=== PATIENT | female | born 1950 | race Caucasian/White ===

== ENCOUNTER → 2017-05-03 | Outpatient (CLI) | payer MEDICARE ==
--- NOTE | 2017-05-04 06:57 | MM ---
Reason for exam: clinical finding. Last mammogram was performed 9 months ago. History: Patient is postmenopausal. Indicated problem(s): pain in the left breast. Physical Findings: Nurse did not find any significant physical abnormalities on exam. MG 3D Diag Mammo W/Cad LT CC and MLO view(s) were taken of the left breast. Prior study comparison: August 11, 2016, bilateral MG screening mammo w CAD. January 14, 2015, mammogram, performed at [facility]. November 16, 2013, mammogram, performed at [facility]. The breast tissue is heterogeneously dense. This may lower the sensitivity of mammography. Finding: There are typically benign round calcifications in the left breast. There is no discrete abnormality. These results were verbally communicated with the patient and result sheet given to the patient on 05/03/17. ASSESSMENT: Benign, BI-RAD 2 RECOMMENDATION: Return to routine screening mammogram schedule for both breasts. Back on schedule. Manage on a clinical basis with regard to pain.
== END | disposition home or self-care (01) ==
LOC: RADMAMWWP 14:21
PROVIDERS: ATTEND Family Medicine
DX: N64.4 Mastodynia (principal)
CPT/HCPCS: G0206; G0279

== ENCOUNTER → 2017-09-29 | Outpatient (CLI) | payer MEDICARE ==
--- NOTE | 2017-09-30 11:23 | MM ---
Reason for exam: screening (asymptomatic). Last mammogram was performed 5 months ago. History: Patient is postmenopausal. Physical Findings: A clinical breast exam by your physician is recommended on an annual basis and results should be correlated with mammographic findings. MG 3D Screening Mammo W/Cad Bilateral CC and MLO view(s) were taken. Prior study comparison: May 03, 2017, left breast MG 3d diag mammo w/cad LT. August 11, 2016, bilateral MG screening mammo w CAD. The breast tissue is heterogeneously dense. This may lower the sensitivity of mammography. There is no discrete abnormality. No significant changes when compared with prior studies. ASSESSMENT: Negative, BI-RAD 1 RECOMMENDATION: Routine screening mammogram of both breasts in 1 year.
== END | disposition home or self-care (01) ==
LOC: RADMAMWWP 14:34
PROVIDERS: ATTEND Family Medicine
DX: Z12.31 Encounter for screening mammogram for malignant neoplasm of breast (principal)
CPT/HCPCS: 77063; 77067

== ENCOUNTER → 2017-11-28 | Outpatient (CLI) | payer MEDICARE ==
[2017-11-28 17:39] LABS: Ionized Calcium 5.3 mg/dL (4.5-5.3)
[2017-11-28 17:50] LABS: ALT 35 U/L (9-52); AST 27 U/L (14-36); Alkaline Phosphatase 77 U/L (38-126); Anion Gap 9 mmol/L; Blood Urea Nitrogen 17 mg/dL (7-17); Calcium 9.7 mg/dL (8.4-10.2); Carbon Dioxide 30 mmol/L (22-30); Chloride 105 mmol/L (98-107); Glucose 121 mg/dL (74-99); Potassium 4.5 mmol/L (3.5-5.1); Sodium 144 mmol/L (137-145); Total Bilirubin 0.3 mg/dL (0.2-1.3)
== END | disposition home or self-care (01) ==
LOC: LABWHC1 17:03
PROVIDERS: ATTEND Physical Medicine & Rehabilitation
DX: M51.17 Intervertebral disc disorders with radiculopathy, lumbosacral region (principal); M47.27 Other spondylosis with radiculopathy, lumbosacral region; M41.26 Other idiopathic scoliosis, lumbar region
CPT/HCPCS: 36415; 80053; 82330; 83735; 84443

== ENCOUNTER 2017-11-30 11:21 | Day surgery (SDC) | payer MEDICARE ==
[2017-11-29 09:22] VITALS: BMI 27.3
[2017-11-30] MEDS: LACTATED RINGERS 1,000 ML IV SCH ×2 (12:05→12:31)
[2017-11-30] MEDS ORDERED: LIDOCAINE 1% 20 ML VIAL (10MG/ML) FOR IV START INTRADERMA ONE (12:05)
[2017-11-30 12:07] VITALS: RESP 16; TEMP 97.8
[2017-11-30] MEDS ORDERED: LIDOCAINE 1% INJ 10MG/ML (20 ML MDV) ONE (12:32)
[2017-11-30] MEDS ORDERED: PROPOFOL 10 MG/ML 20 ML VIAL IV ONE (12:32)
--- NOTE | 2017-11-30 12:41 | P.PCN ---
Date of Procedure: 11/30/17 Procedure(s) Performed: BRIEF HISTORY: Patient is a 67-year-old, pleasant, male, scheduled for an upper endoscopy as a part of evaluation of worsening history of GERD of 15 years duration. She was on Nexium 40 mg daily for several years and recently her symptoms have been progressively getting worse, hence the medication was changed to Protonix 40 mg twice daily despite which she remains symptomatic and hence she is scheduled for an upper endoscopy to evaluate further. PROCEDURE PERFORMED: Esophagogastroduodenoscopy with biopsy. PREOPERATIVE DIAGNOSIS: Long-standing history of GERD with worsening symptoms. IV sedation per anesthesia. PROCEDURE: After informed consent was obtained, the patient was brought into the endoscopy unit. IV sedation was administered by Anesthesia under continuous monitoring. Initially the Olympus GIF-140 video endoscope was inserted into the mouth. Esophagus intubated without any difficulty. It was gradually advanced into the stomach and duodenum and carefully examined. The bulb and the second part of the duodenum appeared normal. The scope at this time was withdrawn to the stomach, adequately insufflated with air, and upon careful examination, mucosa of the antrum had mild gastritis and biopsies were done from this area. The, body, cardia and the fundus appeared normal. The scope was then withdrawn into the esophagus. The GE junction was located at 39 cm from the incisors. Small sliding Hiatal hernia noted. The esophagus appeared normal. There were no erosions or ulcerations seen and the patient tolerated the procedure well. IMPRESSION: 1. Mild antral gastritis. 2. Small hiatal hernia but no evidence of esophagitis or esophageal stricture. RECOMMENDATIONS: The findings of this examination were discussed with the patient as well as a family. She was advised to follow with the biopsy results. She will continue with Protonix 40 mg twice daily and will add Carafate 1 g 4 times daily. She'll be seen in office in 6 weeks..
[2017-11-30 13:02] VITALS: BP 150/87; PULSE 69
== END 2017-11-30 13:25 | disposition home or self-care (01) ==
LOC: ORWHC2ENDO 11:21
PROVIDERS: ATTEND Internal Medicine Gastroenterology
DX: K31.7 Polyp of stomach and duodenum (principal); K29.50 Unspecified chronic gastritis without bleeding; K44.9 Diaphragmatic hernia without obstruction or gangrene; K21.0 Gastro-esophageal reflux disease with esophagitis; E07.9 Disorder of thyroid, unspecified; Z79.891 Long term (current) use of opiate analgesic; Z79.899 Other long term (current) drug therapy; Z88.0 Allergy status to penicillin
CPT/HCPCS: 88305; 43239; J2001; J2704

== ENCOUNTER 2017-12-22 11:57 | Observation (INO) | payer MEDICARE, OTHER ==
[2017-12-22] MEDS ORDERED: ASPIRIN 81 MG PO STA (12:51)
[2017-12-22] MEDS ORDERED: NITROGLYCERIN OINT 1 INCH/GM PACKET TOPICAL STA (12:51)
[2017-12-22 13:11] LABS: Basophils % (A) 0 %; Eosinophils # (A) 0.1 k/uL (0-0.7); Eosinophils % (A) 1 %; HCT 40.6 % (34.0-46.0); HGB 13.5 gm/dL (11.4-16.0); Lymphocytes # (A) 1.9 k/uL (1.0-4.8); Lymphocytes % (A) 20 %; MCH 28.2 pg (25.0-35.0); MCHC 33.2 g/dL (31.0-37.0); Mean Platelet Volume 7.5; Monocytes # (A) 0.6 k/uL (0-1.0); Monocytes % (A) 6 %; Neutrophils # (A) 6.9 k/uL (1.3-7.7); Neutrophils % (A) 72 %; Platelet Count 253 k/uL (150-450); RBC 4.78 m/uL (3.80-5.40); WBC 9.7 k/uL (3.8-10.6)
[2017-12-22 13:19] LABS: ALT 31 U/L (9-52); AST 24 U/L (14-36); Albumin 4.6 g/dL (3.5-5.0); Alkaline Phosphatase 88 U/L (38-126); Anion Gap 14 mmol/L; Blood Urea Nitrogen 22 mg/dL (7-17); Calcium 10.2 mg/dL (8.4-10.2); Carbon Dioxide 25 mmol/L (22-30); Chloride 105 mmol/L (98-107); Glucose 112 mg/dL (74-99); Partial Thromboplastin Time 22.3 sec (22.0-30.0); Potassium 4.4 mmol/L (3.5-5.1); Prothrombin Time 9.7 sec (9.0-12.0); Sodium 144 mmol/L (137-145); Total Bilirubin 0.3 mg/dL (0.2-1.3); Total Protein 7.8 g/dL (6.3-8.2)
--- NOTE | 2017-12-22 13:26 | XR ---
EXAMINATION TYPE: XR chest 2V DATE OF EXAM: 12/22/2017 COMPARISON: NONE HISTORY: Chest pain per order. Pain numbness and swelling into left arm. TECHNIQUE: Frontal and lateral views of the chest are obtained. FINDINGS: There is new left basilar linear atelectasis. Right lung is clear. No pleural effusion or pneumothorax is seen bilaterally. The cardiac silhouette size is within normal limits. There is mult ilevel spurring in the thoracic spine noted. IMPRESSION: Left basilar linear atelectasis.
--- NOTE | 2017-12-22 13:41 | ED ---
Extremity Problem HPI - General Chief complaint: Extremity Problem,Nontraumatic Stated complaint: Left arm pain/ numbness Time Seen by Provider: 12/22/17 12:34 Source: patient, RN notes reviewed Mode of arrival: ambulatory Limitations: no limitations - History of Present Illness Initial comments: This is a 67-year-old female who presents to the emergency department with chief complaint of left arm pain and numbness. Patient states that she woke this morning at approximately 8 AM and began experiencing left arm throbbing and achiness. She states that the pain has progressively worsened throughout the day and she is now experiencing numbness and tingling in her left hand. She denies chest pain or shortness of breath. She denies any history of cardiac problems. She states that on Tuesday she received bilateral SI joint joint injections under anesthesia. She states that she developed an epidural headache yesterday and is now experiencing some left leg numbness and tingling as well. Denies any injuries or trauma. Denies neck pain. Denies fevers or chills, abdominal pain, nausea or vomiting, dysuria or hematuria, dizziness or headache. - Related Data Home Medications Medication Instructions Recorded Confirmed Ezetimibe [Zetia] 10 mg PO DAILY 01/28/15 12/22/17 Levothyroxine Sodium [Synthroid] 88 mcg PO DAILY 01/28/15 12/22/17 Multivitamins, Thera [Multivitamin] 1 tab PO DAILY 01/28/15 12/22/17 Naproxen [Naprosyn] 250 mg PO HS 01/28/15 12/22/17 Oxybutynin Chloride [Ditropan] 5 mg PO BID 01/28/15 12/22/17 traMADol HCl [Ultram] 50 mg PO BID 01/28/15 12/22/17 Allergies Allergy/AdvReac Type Severity Reaction Status Date / Time Penicillins Allergy Rash/Hives Verified 12/22/17 12:36 Review of Systems ROS Statement: Those systems with pertinent positive or pertinent negative responses have been documented in the HPI. ROS Other: All systems not noted in ROS Statement are negative. Past Medical History Past Medical History: Fibromyalgia, GERD/Reflux, Thyroid Disorder Additional Past Medical History / Comment(s): cricopharyngeal achalasia, arthritis, IBS, hernia, DJD History of Any Multi-Drug Resistant Organisms: None Reported Past Surgical History: Appendectomy, Hysterectomy Additional Past Surgical History / Comment(s): carpel tunnel, Past Psychological History: No Psychological Hx Reported Smoking Status: Never smoker Past Alcohol Use History: None Reported Past Drug Use History: None Reported General Exam - General Exam Comments Initial Comments: General: Awake and alert, well-developed; in no apparent distress. HEENT: Head atraumatic, normocephalic. Pupils are equal, round and reactive to light. Extraocular movements intact. Oropharynx moist without erythema or exudate. Neck: Supple. Normal ROM. Cardiovascular: Regular rate and rhythm. No murmurs, rubs or gallops. Chest symmetrical. Respiratory: Lungs clear to auscultation bilaterally. No wheezes, rales or rhonchi. Normal respiratory effort with no use of accessory muscles. Musculoskeletal: Normal range of motion and no tenderness on palpation of the left arm. Radial pulses are 2+ equal and palpable bilaterally. Cap refill is less than 2 seconds. No ecchymosis, swelling or erythema noted. Skin: [place], warm and dry without rashes or lesions. Neurological: Alert and oriented x3. CN II-XII grossly intact. Speech is fluent and answers are appropriate. No focal neuro deficits. Psychiatric: Normal mood and affect. No overt signs of depression or anxiety noted. Limitations: no limitations Course Vital Signs 12/22/17 12/22/17 12:02 13:52 Temperature 98.5 F 97.8 F Pulse Rate 87 67 Respiratory 18 18 Rate Blood Pressure 163/88 152/86 O2 Sat by Pulse 98 97 Oximetry Medical Decision Making - Medical Decision Making This is a 67-year-old female who presents to the emergency department with chief complaint of left arm pain and numbness. She denies any shortness of breath or chest pain. She describes the arm pain as throbbing and achy with numbness and tingling in her left hand. A full cardiac workup was performed. EKG revealed normal sinus rhythm. CBC and CMP were unremarkable. Troponin and cardiac profile were negative. Chest x-ray revealed left basilar linear atelectasis. Vital signs are stable and she is in no acute distress. This case was discussed with attending physician, Dr. Briscoe who also evaluated the patient. Patient will be admitted under Dr. Graham with diagnosis of ACS and unstable angina. Cardiology will be consulted. Patient was made aware of findings and plan and is in agreement for admission. - Lab Data Result diagrams: 12/22/17 13:01 12/22/17 13:01 Lab Results 12/22/17 12/22/17 12/22/17 Range/Units 13:01 13:01 13:01 WBC 9.7 (3.8-10.6) k/uL RBC 4.78 (3.80-5.40) m/uL Hgb 13.5 (11.4-16.0) gm/dL Hct 40.6 (34.0-46.0) % MCV 85.0 (80.0-100.0) fL MCH 28.2 (25.0-35.0) pg MCHC 33.2 (31.0-37.0) g/dL RDW 14.0 (11.5-15.5) % Plt Count 253 (150-450) k/uL Neutrophils % 72 % Lymphocytes % 20 % Monocytes % 6 % Eosinophils % 1 % Basophils % 0 % Neutrophils # 6.9 (1.3-7.7) k/uL Lymphocytes # 1.9 (1.0-4.8) k/uL Monocytes # 0.6 (0-1.0) k/uL Eosinophils # 0.1 (0-0.7) k/uL Basophils # 0.0 (0-0.2) k/uL PT (9.0-12.0) sec INR (<1.2) APTT (22.0-30.0) sec Sodium 144 (137-145) mmol/L Potassium 4.4 (3.5-5.1) mmol/L Chloride 105 (98-107) mmol/L Carbon Dioxide 25 (22-30) mmol/L Anion Gap 14 mmol/L BUN 22 H (7-17) mg/dL Creatinine 0.60 (0.52-1.04) mg/dL Est GFR (CKD-EPI)AfAm >90 (>60 ml/min/1.73 sqM) Est GFR (CKD-EPI)NonAf >90 (>60 ml/min/1.73 sqM) Glucose 112 H (74-99) mg/dL Calcium 10.2 (8.4-10.2) mg/dL Magnesium 2.0 (1.6-2.3) mg/dL Total Bilirubin 0.3 (0.2-1.3) mg/dL AST 24 (14-36) U/L ALT 31 (9-52) U/L Alkaline Phosphatase 88 (38-126) U/L Total Creatine Kinase 52 (30-135) U/L CK-MB (CK-2) 0.3 (0.0-2.4) ng/mL CK-MB (CK-2) Rel Index 0.6 Troponin I <0.012 (0.000-0.034) ng/mL Total Protein 7.8 (6.3-8.2) g/dL Albumin 4.6 (3.5-5.0) g/dL 12/22/17 Range/Units 13:01 WBC (3.8-10.6) k/uL RBC (3.80-5.40) m/uL Hgb (11.4-16.0) gm/dL Hct (34.0-46.0) % MCV (80.0-100.0) fL MCH (25.0-35.0) pg MCHC (31.0-37.0) g/dL RDW (11.5-15.5) % Plt Count (150-450) k/uL Neutrophils % % Lymphocytes % % Monocytes % % Eosinophils % % Basophils % % Neutrophils # (1.3-7.7) k/uL Lymphocytes # (1.0-4.8) k/uL Monocytes # (0-1.0) k/uL Eosinophils # (0-0.7) k/uL Basophils # (0-0.2) k/uL PT 9.7 (9.0-12.0) sec INR 1.0 (<1.2) APTT 22.3 (22.0-30.0) sec Sodium (137-145) mmol/L Potassium (3.5-5.1) mmol/L Chloride (98-107) mmol/L Carbon Dioxide (22-30) mmol/L Anion Gap mmol/L BUN (7-17) mg/dL Creatinine (0.52-1.04) mg/dL Est GFR (CKD-EPI)AfAm (>60 ml/min/1.73 sqM) Est GFR (CKD-EPI)NonAf (>60 ml/min/1.73 sqM) Glucose (74-99) mg/dL Calcium (8.4-10.2) mg/dL Magnesium (1.6-2.3) mg/dL Total Bilirubin (0.2-1.3) mg/dL AST (14-36) U/L ALT (9-52) U/L Alkaline Phosphatase (38-126) U/L Total Creatine Kinase (30-135) U/L CK-MB (CK-2) (0.0-2.4) ng/mL CK-MB (CK-2) Rel Index Troponin I (0.000-0.034) ng/mL Total Protein (6.3-8.2) g/dL Albumin (3.5-5.0) g/dL 12:14:20 Normal sinus rhythm with possible left atrial enlargement. Ventricular rate 69 bpm, MI interval 144, QRS duration 90, QT/QTC 362/387. No ST segment elevation or depression. - Radiology Data Radiology results: report reviewed Chest x-ray findings: There is no left basilar linear atelectasis. Right lung is clear. No pleural effusion or pneumothorax is seen bilaterally. The cardiac silhouette size is within normal limits. There is multilevel Spring the thoracic spine noted. Impression: Left basilar linear atelectasis. Disposition Clinical Impression: Unstable angina Disposition: ADMITTED IP TO THIS HOSP Condition: Stable Referrals: Preet Graham MD [Primary Care Provider] - 1-2 days Time of Disposition: 15:38
[2017-12-22 13:47] LABS: Creatine Kinase 52 U/L (30-135)
[2017-12-22 13:59] LABS: Creatine Kinase MB 0.3 ng/mL (0.0-2.4); Troponin I <0.012 ng/mL (0.000-0.034)
[2017-12-22] MEDS ORDERED: traMADol 50 MG TAB PO STA (15:38)
[2017-12-22] MEDS ORDERED: NITROGLYCERIN OINT 1 INCH/GM PACKET TOPICAL SCH (18:00)
[2017-12-22 20:11] LABS: Creatine Kinase 39 U/L (30-135)
[2017-12-22 20:23] LABS: Creatine Kinase MB <0.2 ng/mL (0.0-2.4); Troponin I <0.012 ng/mL (0.000-0.034)
[2017-12-22] MEDS ORDERED: ZOLPIDEM 5 MG TAB PO PRN (20:48)
[2017-12-22] MEDS ORDERED: METOPROLOL TARTRATE 12.5 MG TAB PO SCH (21:00)
[2017-12-22] MEDS: traMADol 50 MG TAB PO SCH (21:06)
--- NOTE | 2017-12-22 21:44 | CONS ---
CONSULTATION This is a 67-year-old lady who has multiple medical problems in the form of hypothyroidism, history of hyperlipidemia, who does not like statins and takes only Zetia. She has also underlying history of fibromyalgia. This lady came into the hospital with what seems to be a numbness and discomfort in the left arm. She just felt uncomfortable. She woke up with some left arm numbness. Her sensation is completely preserved. Her pulses are excellent. She then felt some throbbing sensation and achiness. She never had chest pain. There was no evidence of any neck discomfort. About 3 days ago she had some epidural injections and had some headache after that. She has underlying fibromyalgia and has aches and pains most of the time, but has no chest pain. At the time of my evaluation she is resting comfortably, appears a bit anxious but is not in any distress. Her symptom of left arm numbness is also improving. PAST MEDICAL HISTORY: 1. Fibromyalgia. 2. Hyperlipidemia, on Zetia. 3. Hypothyroidism. 4. Arthritis. 5. Back pains, status post epidural injections 2 days ago. She is status post appendectomy and hysterectomy. PHYSICAL EXAMINATION: Blood pressure is 140/80. Pulse rate is 70 per minute, regular. HEENT: Unremarkable. Fundus was not examined by me. NECK: Supple. There is no JVD. I do not hear a carotid bruit. There is no thyromegaly. Heart exam reveals S1, S2 heard normally without a rub, murmur or gallop. Lungs are clear. ABDOMEN: Soft, nontender. Lower extremities reveal normal pulses. No edema. Central nervous system is normal. EKG revealed a sinus mechanism without any acute changes. There is some left atrial abnormality noted. LABORATORY DATA: Her 2 sets of troponins are normal. IMPRESSION: 1. Atypical left arm pain, musculoskeletal in nature. There is no neurological deficit. There is no sensory deficit. Pulses are excellent in the left arm. 2. Fibromyalgia. 3. History of hyperlipidemia. 4. History of some anxiety disorder. RECOMMENDATIONS: I am recommending that we place her on a small dose of beta jovanni. She already has an echocardiogram ordered for tomorrow. I am recommending that we discontinue nitro paste, increase activity, and she can be discharged tomorrow and further investigation in the form of a stress test can be arranged as an outpatient. I discussed my thoughts in detail with the patient. Thank you very much for the consult. MMODL / IJN: [id number] /
[2017-12-23 01:43] LABS: Creatine Kinase 29 U/L (30-135)
[2017-12-23 01:56] LABS: Creatine Kinase MB <0.2 ng/mL (0.0-2.4); Troponin I <0.012 ng/mL (0.000-0.034)
[2017-12-23 02:29] LABS: Cholesterol 164 mg/dL (<200); HDL Cholesterol 43 mg/dL (40-60); LDL Cholesterol,Calculated 82 mg/dL (0-99); Triglycerides 195 mg/dL (<150)
[2017-12-23] MEDS ORDERED: LEVOTHYROXINE 88 MCG TAB PO SCH (06:30)
[2017-12-23] MEDS: traMADol 50 MG TAB PO SCH (08:21)
[2017-12-23 08:28] VITALS: RESP 16
[2017-12-23] MEDS ORDERED: OXYBUTYNIN CHLORIDE 5 MG TAB PO SCH (09:00)
[2017-12-23] MEDS ORDERED: ASPIRIN 325 MG TAB PO SCH (09:00)
[2017-12-23] MEDS ORDERED: METOPROLOL TARTRATE 25 MG TAB PO SCH (09:00)
[2017-12-23] MEDS ORDERED: ASPIRIN 81 MG PO SCH (09:00)
[2017-12-23] MEDS ORDERED: EZETIMIBE 10 MG TAB PO SCH (09:00)
--- NOTE | 2017-12-23 11:49 | ECHOF ---
Referral Reason:unstable angina MEASUREMENTS -------- HEIGHT: 165.1 cm WEIGHT: 74.4 kg BP: 145/68 RVIDd: 2.6 cm (< 3.3) IVSd: 0.9 cm (0.6 - 1.1) LVIDd: 4.4 cm (3.9 - 5.3) LVPWd: 0.9 cm (0.6 - 1.1) IVSs: 1.5 cm LVIDs: 2.9 cm LVPWs: 1.3 cm LA Diam: 2.9 cm (2.7 - 3.8) LAESV Index (A-L): 21.26 ml/m Ao Diam: 2.9 cm (2.0 - 3.7) AV Cusp: 2.0 cm (1.5 - 2.6) MV EXCURSION: 13.254 mm (> 18.000) MV EF SLOPE: 77 mm/s (70 - 150) EPSS: 0.5 cm MV E Chas: 0.72 m/s MV DecT: 236 ms MV A Chas: 0.97 m/s MV E/A Ratio: 0.74 FINDINGS -------- Sinus rhythm. This was a technically good study. The left ventricular size is normal. Left ventricular wall thickness is normal. Overall left vent ricular systolic function is normal with, an EF between 55 - 60 %. The right ventricle is normal in size. Normal LA size by volume 22+/-6 ml/m2. The right atrium is normal in size. The aortic valve is trileaflet and appears structurally normal. The mitral valve leaflets are mildly thickened. Mild mitral annular calcification present. There is trace to mild mitral regurgitation. The tricuspid valve appears structurally normal. Trace/mild (physiologic) pulmonic regurgitation. The aortic root size is normal. Normal inferior vena cava with normal inspiratory collapse consistent with estimated right atrial pre ssure of 5 mmHg. There is no pericardial effusion. CONCLUSIONS -------- 1. Sinus rhythm. 2. This was a technically good study. 3. The left ventricular size is normal. 4. Left ventricular wall thickness is normal. 5. Overall left ventricular systolic function is normal with, an EF between 55 - 60 %. 6. The right ventricle is normal in size. 7. Normal LA size by volume 22+/-6 ml/m2. 8. The right atrium is normal in size. 9. The aortic valve is trileaflet and appears structurally normal. 10. The mitral valve leaflets are mildly thickened. 11. Mild mitral annular calcification present. 12. There is trace to mild mitral regurgitation. 13. The tricuspid valve appears structurally normal. 14. Trace/mild (physiologic) pulmonic regurgitation. 15. The aortic root size is normal. 16. Normal inferior vena cava with normal inspiratory collapse consistent with estimated right atrial pressure of 5 mmHg. 17. There is no pericardial effusion. [employer] MANAGER: Barbara Davis RDCS
[2017-12-23 11:50] VITALS: BP 160/85; PULSE 68; TEMP 98.2
[2017-12-23] MEDS ORDERED: METOPROLOL TARTRATE 12.5 MG TAB PO SCH (12:18)
--- NOTE | 2017-12-23 14:19 | PN ---
PROGRESS NOTE Mrs Zuniga came in with a very atypical chest pain. She is feeling much better today. Troponins are negative. Vital signs are stable. Echocardiogram revealed preserved systolic function. I am recommending that she can be discharged and I will see her in the office in a week and consider stress testing as an outpatient. She had epidural injections performed for her degenerative joint disease. Vital signs are stable, there is no JVD. S1, S2 heard normally. Lungs are clear. Abdomen and lower extremity exam unchanged. Patient can be discharged today. MMODL / IJN: [id number] /
--- NOTE | 2017-12-23 15:41 | P.HPIM ---
History of Present Illness H&P Date: 12/23/17 Chief Complaint: Left arm discomfort. This is a history and physical 67-year-old white female with history of achalasia and hypertension who has an underlying history of sudden left arm pain. It was palliated with rest but was so strong that she was concerned about unstable angina. She has no previous anginal equivalent elements. She is a non-smoker. Family history is somewhat noncontributory. She is essentially admitted for rule out myocardial infarction. She states no significant voiding difficulties. No nausea, vomiting or diarrhea. Review of Systems Constitutional: Denies chills, Denies fever Eyes: denies blurred vision, denies pain Cardiovascular: Reports chest pain, Denies shortness of breath Respiratory: Denies cough Gastrointestinal: Denies abdominal pain, Denies diarrhea, Denies nausea, Denies vomiting Musculoskeletal: Denies myalgias Integumentary: Denies pruritus, Denies rash Past Medical History Past Medical History: Fibromyalgia, GERD/Reflux, Hyperlipidemia, Thyroid Disorder Additional Past Medical History / Comment(s): cricopharyngeal achalasia, arthritis, IBS, hiatal hernia,short segment barretts esopahagus, DJD,ddd wears back barce,lt eye cataract. constipation but did have bm today(12-22-17) History of Any Multi-Drug Resistant Organisms: None Reported Past Surgical History: Appendectomy, Hysterectomy Additional Past Surgical History / Comment(s): zuleyma carpel tunnel release, injections in back, several egd's Past Anesthesia/Blood Transfusion Reactions: Previous Problems w/ Anesthesia Additional Past Anesthesia/Blood Transfusion Reaction / Comment(s): headache. per pt use care if need for intubation due to hx of cricopharyngeal achalasia Smoking Status: Never smoker - Past Family History Mother Family Medical History: Cancer Additional Family Medical History / Comment(s): stomach/bladder cancer Father Family Medical History: Cancer, COPD, Myocardial Infarction ([place]) Additional Family Medical History / Comment(s): colon and skin cancer, smoked. Sister(s) Family Medical History: Coronary Artery Disease (CAD), Myocardial Infarction ([place] ) Additional Family Medical History / Comment(s): smoked. had 3-4 mi's and cardiac stents Brother(s) Family Medical History: Cancer Additional Family Medical History / Comment(s): lung cancer, smoked. pollyo had a step brother that has esophegeal cancer, hx smoking Medications and Allergies Home Medications Medication Instructions Recorded Confirmed Type Ezetimibe [Zetia] 10 mg PO DAILY 01/28/15 12/22/17 History Levothyroxine Sodium [Synthroid] 88 mcg PO DAILY 01/28/15 12/22/17 History Multivitamins, Thera [Multivitamin 1 tab PO DAILY 01/28/15 12/22/17 History (formulary)] Naproxen [Naprosyn] 250 mg PO HS 01/28/15 12/22/17 History Oxybutynin Chloride [Ditropan] 5 mg PO BID 01/28/15 12/22/17 History traMADol HCl [Ultram] 50 mg PO BID 01/28/15 12/22/17 History Aspirin 81 mg PO DAILY tab 12/23/17 Rx Metoprolol Tartrate [Lopressor] 12.5 mg PO BID #60 tab 12/23/17 Rx Allergies Allergy/AdvReac Type Severity Reaction Status Date / Time Penicillins Allergy Rash/Hives Verified 12/22/17 12:36 Physical Exam Vitals: Vital Signs Temp Pulse Pulse Pulse Resp BP BP 12/23/17 12:00 78 68 16 12/23/17 11:47 98.2 F 68 16 160/85 12/23/17 08:00 98 F 78 75 16 167/97 12/23/17 03:41 98.1 F 78 17 145/68 12/23/17 03:37 17 12/23/17 00:00 17 12/22/17 23:28 98.3 F 88 17 133/82 12/22/17 20:00 99.1 F 80 16 140/80 12/22/17 17:32 99.1 F 88 17 156/91 12/22/17 16:31 98.5 F 65 18 142/88 Pulse Ox 12/23/17 12:00 12/23/17 11:47 94 L 12/23/17 08:00 94 L 12/23/17 03:41 94 L 12/23/17 03:37 12/23/17 00:00 12/22/17 23:28 96 12/22/17 20:00 95 12/22/17 17:32 96 03/29/18 16:31 97 Intake and Output 12/23/17 12/23/17 12/23/17 06:59 14:59 22:59 Intake Total 596 Balance 596 Intake: Oral 596 Other: Voiding Method Toilet Toilet # Voids 3 3 Results CBC & Chem 7: 12/22/17 13:01 12/22/17 13:01 Labs: Abnormal Lab Results - Last 24 Hours (Table) 12/23/17 12/23/17 Range/Units 00:50 01:00 Total Creatine Kinase 29 L (30-135) U/L Triglycerides 195 H (<150) mg/dL Assessment and Plan (1) Fibromyalgia Status: Acute Code(s): M79.7 - FIBROMYALGIA SNOMED Code(s): 508932185 (2) Unstable angina Status: Acute Code(s): I20.0 - UNSTABLE ANGINA SNOMED Code(s): 5734164 Plan: The patient given her fibromyalgia will have echocardiogram done today. Rule out myocardial infarction. Restart home medications. She is a full code otherwise. Nuclear I anticipate discharge in the next [address] Chau's group will be covering for the weekend.
== END 2017-12-23 14:55 | disposition home or self-care (01) ==
LOC: EC 11:57 → 3OBS 15:06
PROVIDERS: ADMIT Family Medicine; ATTEND Family Medicine
DX: I20.0 Unstable angina (principal); M79.602 Pain in left arm; M79.7 Fibromyalgia; F41.9 Anxiety disorder, unspecified; K21.9 Gastro-esophageal reflux disease without esophagitis; R13.10 Dysphagia, unspecified; M19.90 Unspecified osteoarthritis, unspecified site; K58.9 Irritable bowel syndrome, unspecified; E03.9 Hypothyroidism, unspecified; E78.5 Hyperlipidemia, unspecified; M54.9 Dorsalgia, unspecified; Z79.899 Other long term (current) drug therapy; Z79.1 Long term (current) use of non-steroidal anti-inflammatories (NSAID); Z79.891 Long term (current) use of opiate analgesic; Z79.82 Long term (current) use of aspirin; Z88.0 Allergy status to penicillin; Z80.52 Family history of malignant neoplasm of bladder; Z80.8 Family history of malignant neoplasm of other organs or systems; Z80.0 Family history of malignant neoplasm of digestive organs; Z82.5 Family history of asthma and other chronic lower respiratory diseases; Z80.1 Family history of malignant neoplasm of trachea, bronchus and lung; Z82.49 Family history of ischemic heart disease and other diseases of the circulatory system; I10 Essential (primary) hypertension; K22.70 Barrett's esophagus without dysplasia; Z90.49 Acquired absence of other specified parts of digestive tract; Z90.710 Acquired absence of both cervix and uterus
CPT/HCPCS: 36415; 71046; 80053; 80061; 82550; 82553; 83735; 84484; 85025; 85610; 85730; 93005; 93306; 99284

== ENCOUNTER 2018-07-23 00:34 | Emergency (ER) | payer MEDICARE, OTHER ==
[2018-07-23 00:40] VITALS: BP 136/72; PULSE 94; RESP 18; TEMP 98.6
[2018-07-23] MEDS ORDERED: KETOROLAC 30 MG/ML 1 ML VIAL IM STA (00:54)
[2018-07-23] MEDS ORDERED: DIAZEPAM 5 MG/ML 2 ML INJ IM ONE (00:54)
[2018-07-23] MEDS ORDERED: HYDROcodone/APAP 5-325MG 1 EACH TAB PO STA (00:56)
--- NOTE | 2018-07-23 01:08 | ED ---
Neck Injury/Pain HPI - General Chief Complaint: Neck Pain/Injury Stated Complaint: Neck Pain Time Seen by Provider: 07/23/18 00:43 Mode of arrival: ambulatory Limitations: no limitations - History of Present Illness Initial Comments: 68-year-old female patient presents to the emergency department today for complaints of left-sided neck pain that radiates up into her head and down to her left shoulder. Patient states the pain was present when she woke from sleep yesterday morning. Patient states that the pain has progressively worsened since then. Patient states that she did take a tramadol this morning and has been applying ice and heat to the area without relief of symptoms. Patient states tonight she is unable to sleep due to the pain. Patient denies any neck injury. Denies any history of similar symptoms. She denies any chest pain, shortness of breath, dizziness, or weakness. Patient states that she is nauseated related to the pain. Patient denies any back pain, dizziness, weakness , abdominal pain, nausea, vomiting, or difficulties with bowel movements or urination. - Related Data Home Medications Medication Instructions Recorded Confirmed Ezetimibe [Zetia] 10 mg PO DAILY 01/28/15 07/23/18 Levothyroxine Sodium [Synthroid] 88 mcg PO DAILY 01/28/15 07/23/18 Multivitamins, Thera [Multivitamin 1 tab PO DAILY 01/28/15 07/23/18 (formulary)] Naproxen [Naprosyn] 250 mg PO HS 01/28/15 07/23/18 Oxybutynin Chloride [Ditropan] 5 mg PO BID 01/28/15 07/23/18 traMADol HCl [Ultram] 50 mg PO BID 01/28/15 07/23/18 Previous Rx's Medication Instructions Recorded Aspirin 81 mg PO DAILY tab 12/23/17 Metoprolol Tartrate [Lopressor] 12.5 mg PO BID #60 tab 12/23/17 Diazepam [Valium] 5 mg PO Q8HR PRN 3 Days #9 tab 07/23/18 Naproxen [Naprosyn] 500 mg PO Q12HR #30 tab 07/23/18 Allergies Allergy/AdvReac Type Severity Reaction Status Date / Time Penicillins Allergy Rash/Hives Verified 07/23/18 00:40 Review of Systems ROS Statement: Those systems with pertinent positive or pertinent negative responses have been documented in the HPI. ROS Other: All systems not noted in ROS Statement are negative. Past Medical History Past Medical History: Fibromyalgia, GERD/Reflux, Hyperlipidemia, Thyroid Disorder Additional Past Medical History / Comment(s): cricopharyngeal achalasia, arthritis, IBS, hiatal hernia,short segment barretts esopahagus, DJD,ddd wears back barce,lt eye cataract. constipation but did have bm today(3-) History of Any Multi-Drug Resistant Organisms: None Reported Past Surgical History: Appendectomy, Hysterectomy Additional Past Surgical History / Comment(s): zuleyma carpel tunnel release, injections in back, several egd's Past Anesthesia/Blood Transfusion Reactions: Previous Problems w/ Anesthesia Additional Past Anesthesia/Blood Transfusion Reaction / Comment(s): headache. per pt use care if need for intubation due to hx of cricopharyngeal achalasia Past Psychological History: No Psychological Hx Reported Smoking Status: Never smoker Past Alcohol Use History: None Reported Past Drug Use History: None Reported - Past Family History Mother Family Medical History: Cancer Additional Family Medical History / Comment(s): BLADDER AND STOMACH Father Family Medical History: Cancer Additional Family Medical History / Comment(s): COLON AND SKIN CANCER Sister(s) Family Medical History: Coronary Artery Disease (CAD), Myocardial Infarction (SD ) Additional Family Medical History / Comment(s): smoked. had 3-4 mi's and cardiac stents Brother(s) Family Medical History: Cancer Additional Family Medical History / Comment(s): lung cancer, smoked. aslo had a step brother that has esophegeal cancer, hx smoking General Exam Limitations: no limitations General appearance: alert, in no apparent distress, other (This is a well- developed, well-nourished adult female patient in no acute distress. Vital signs upon presentation are temperature 98.6F, pulse 94, respirations 18, blood pressure 136/72, pulse ox 99% on room air.) Eye exam: Present: normal appearance, PERRL, EOMI. Absent: scleral icterus, conjunctival injection, periorbital swelling ENT exam: Present: normal exam, normal oropharynx, mucous membranes moist Neck exam: Present: normal inspection, tenderness (Left lateral neck tenderness , numbness over the left upper trapezius muscle), full ROM (Patient does have full range of motion but does report increased pain with rotation left and right ), other (No midline cervical tenderness). Absent: meningismus, lymphadenopathy Respiratory exam: Present: normal lung sounds bilaterally. Absent: respiratory distress, wheezes, rales, rhonchi, stridor Cardiovascular Exam: Present: regular rate, normal rhythm, normal heart sounds. Absent: systolic murmur, diastolic murmur, rubs, gallop, clicks Extremities exam: Present: normal inspection, full ROM, normal capillary refill , other (Skin to the upper extremities is pink, warm, and dry. Cap refills less than 3 seconds. Radial pulses 2+ and equal bilaterally.). Absent: tenderness, pedal edema, joint swelling, calf tenderness Neurological exam: Present: alert, oriented X3, CN II-XII intact, other ( Strength in the upper extremities is 5/5.) Psychiatric exam: Present: normal affect, normal mood Skin exam: Present: warm, dry, intact, normal color. Absent: rash Course Vital Signs 07/23/18 00:36 Temperature 98.6 F Pulse Rate 94 Respiratory 18 Rate Blood Pressure 136/72 O2 Sat by Pulse 99 Oximetry Medical Decision Making - Medical Decision Making 68 year-old female patient presented emergency department today with complaints of left-sided neck pain. Patient reported increased pain with movement. Physical examination did reveal some left-sided neck tenderness. There was tightness and spasm of the upper trapezius muscle. Patient had any injury. She is neurovascularly intact. Patient is neurologically intact. She is afebrile with stable vital signs. She was given IM Valium, IM Toradol, and oral [place] here in the department. Upon reevaluation patient is feeling slightly improved. Patient symptoms are consistent with spasmodic torticollis. We will treat him for this with Valium, anti-inflammatories, and patient does have tramadol at home she is instructed to take. She is instructed to apply ice and heat alternating. She is instructed to perform gentle range of motion exercises. She is instructed to follow-up with her primary care physician for recheck in 1-2 days. Return parameters discussed in detail. They verbalize understanding and agree with this plan - EKG Data -: EKG Interpreted by Me EKG Comments: EKG obtained at 0207 shows normal sinus rhythm with a ventricular rate of 84, [place] interval 152, QRS duration 82, QT 392, QTc 463. No evidence of ST elevation or depression. Disposition Clinical Impression: Spasmodic torticollis Disposition: HOME SELF-CARE Condition: Good Instructions: Spasmodic Torticollis (ED) Additional Instructions: Take medication as directed. Continue alternating application of ice and heat, 20 minutes at a time at least 4 times daily. Follow-up with your primary care physician for recheck in 1-2 days. Return here immediately for any new, worsening, or concerning symptoms. Prescriptions: Diazepam [Valium] 5 mg PO Q8HR PRN 3 Days #9 tab PRN Reason: Muscle Spasm Naproxen [Naprosyn] 500 mg PO Q12HR #30 tab Is patient prescribed a controlled substance at d/c from ED?: Yes When asked, does pt state using other controlled substances?: Yes If prescribed controlled substance>3 days was MAPS reviewed?: Prescribed <3 Days Referrals: Preet Graham MD [Primary Care Provider] - 1-2 days Time of Disposition: 02:07
== END 2018-07-23 02:22 | disposition home or self-care (01) ==
LOC: EC 00:34
DX: G24.3 Spasmodic torticollis (principal); R11.0 Nausea; M79.7 Fibromyalgia; E78.5 Hyperlipidemia, unspecified; E07.9 Disorder of thyroid, unspecified; M19.90 Unspecified osteoarthritis, unspecified site; Z79.1 Long term (current) use of non-steroidal anti-inflammatories (NSAID); Z79.899 Other long term (current) drug therapy; Z88.0 Allergy status to penicillin
CPT/HCPCS: 93005; 99283; 96372 ×2; J3360; J1885

== ENCOUNTER → 2018-11-15 | Outpatient (CLI) | payer MEDICARE, OTHER ==
--- NOTE | 2018-11-15 12:00 | XR ---
EXAMINATION TYPE: XR cervical spine limited DATE OF EXAM: 11/15/2018 COMPARISON: NONE HISTORY: Neck pain TECHNIQUE: 3 views submitted FINDINGS: Lung apices clear. There is multilevel degenerative disc disease with severe changes seen a t levels C4-5 and C5-C6 and moderate changes at C6-C7. Multilevel facet arthropathy. Posterior spondy losis particularly noted at C4-5 and C5-C6 could result in some degree of Canal stenosis. There is a 2 to 3 mm anterolisthesis of C3 on C4. Prevertebral soft tissue structures within normal limits. Odontoid intact. IMPRESSION: 1. Multilevel facet arthropathy and degenerative disc disease. Foraminal encroachment suspected as we ll as possible canal stenosis at C4-C5 recommend follow-up MRI.
== END | disposition home or self-care (01) ==
LOC: RADXRMAIN 11:33
PROVIDERS: ATTEND Family Medicine
DX: M50.321 Other cervical disc degeneration at C4-C5 level (principal); M46.92 Unspecified inflammatory spondylopathy, cervical region
CPT/HCPCS: 72040

== ENCOUNTER → 2018-12-19 | Outpatient (CLI) | payer MEDICARE, OTHER ==
--- NOTE | 2018-12-19 12:13 | XR ---
EXAMINATION TYPE: XR chest 2V DATE OF EXAM: 12/19/2018 COMPARISON: 12/22/2017 TECHNIQUE: PA and lateral views submitted. HISTORY: Hemoptysis FINDINGS: There is no pneumothorax or pleural effusion. Arthropathy of the shoulders. No overt failure. Spinal stimulator device noted. Hypertrophic and degenerative change spine. Hyperinflation of the lungs. [place] bsegmental changes along the left margin of the lung base. IMPRESSION: 1. Correlate for COPD. Persistent basilar subsegmental consolidation. Appears more prominent on today 's exam. Given the presence of hemoptysis correlate with CT scan.
== END | disposition home or self-care (01) ==
LOC: RADXRMAIN 11:50
PROVIDERS: ATTEND Family Medicine
DX: R04.2 Hemoptysis (principal)
CPT/HCPCS: 71046

== ENCOUNTER → 2019-01-23 | Outpatient (CLI) | payer MEDICARE, OTHER ==
[2019-01-23 11:58] VITALS: BP 169/81; PULSE 99; RESP 18; TEMP 98; BMI 27.4
--- NOTE | 2019-01-23 12:38 | P.HPOB ---
History of Present Illness H&P Date: 01/23/19 Chief Complaint: The patient is here for her routine gynecologic exam and ma mmogram. This is a 68-year-old G3 PIII with an LMP of 1977. The patient is status post TERRANCE with RSO for benign reasons. She has been having more problems with urinary incontinence. She tends to have leakage when she coughs or sneezes. She occasionally has urge incontinence as well where she can leak if she does not give to the bathroom quick enough. Oxybutynin used to be more helpful, but does not seem to be helping as much these days. She is otherwise without complaints. Review of Systems She is getting about 2 pounds over the last year. She denies respiratory, cardiac and G.I. problems. She denies maltreatment or problems with falling. : she has had more leakage with coughing and sneezing as in the HPI. Past Medical History Past Medical History: Fibromyalgia, GERD/Reflux, Hyperlipidemia, Osteoarthritis (OA), Thyroid Disorder Additional Past Medical History / Comment(s): cricopharyngeal achalasia, arthritis, IBS, hiatal hernia,short segment barretts esopahagus, DJD,ddd wears back btace,lt eye cataract. Overactive bladder. Hypothyroidism. PAST [employer] HISTORY: She has no history of STDs. History of Any Multi-Drug Resistant Organisms: None Reported Past Surgical History: Appendectomy, Hysterectomy Additional Past Surgical History / Comment(s): zuleyma carpel tunnel release, injections in back, several egd's. TERRANCE RS0 in 1977 for a benign mass. Colonoscopy 2014(3rd). Past Anesthesia/Blood Transfusion Reactions: Previous Problems w/ Anesthesia Additional Past Anesthesia/Blood Transfusion Reaction / Comment(s): headache. 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 - Past Family History Mother Family Medical History: Cancer, Diabetes Mellitus Additional Family Medical History / Comment(s): BLADDER AND OVARIAN CANCER AT AGE 72 Father Family Medical History: Cancer Additional Family Medical History / Comment(s): COLON AND SKIN CANCER Sister(s) Family Medical History: Coronary Artery Disease (CAD), Myocardial Infarction ([place]) Additional Family Medical History / Comment(s): smoked. had 3-4 mi's and cardiac stents Brother(s) Family Medical History: Cancer Additional Family Medical History / Comment(s): lung cancer, smoked. aslo had a step brother that has esophegeal cancer, hx smoking Medications and Allergies Home Medications Medication Instructions Recorded Confirmed Type Levothyroxine Sodium [Synthroid] 88 mcg PO DAILY 01/28/15 01/23/19 History Multivitamins, Thera [Multivitamin 1 tab PO DAILY 01/28/15 01/23/19 History (formulary)] Naproxen [Naprosyn] 250 mg PO HS 01/28/15 01/23/19 History Oxybutynin Chloride [Ditropan] 5 mg PO BID 01/28/15 01/23/19 History traMADol HCl [Ultram] 50 mg PO BID 01/28/15 01/23/19 History Aspirin 81 mg PO DAILY tab 12/23/17 01/23/19 Rx Metoprolol Tartrate [Lopressor] 12.5 mg PO BID #60 tab 12/23/17 01/23/19 Rx Naproxen [Naprosyn] 500 mg PO Q12HR #30 tab 07/23/18 01/23/19 Rx Allergies Allergy/AdvReac Type Severity Reaction Status Date / Time Penicillins Allergy Rash/Hives Verified 01/23/19 11:50 Exam Vital Signs Temp Pulse Resp BP Pulse Ox 01/23/19 11:54 98.0 F 99 18 169/81 98 Intake and Output 01/22/19 01/23/19 01/23/19 22:59 06:59 14:59 Other: Weight 74.843 kg Height 5'5", weight 165 pounds, BMI 27.5. This is a well-developed well-nourished white female who is alert and oriented times 3 in no acute distress. HEENT: Within normal limits. NECK: Supple without mass or thyromegaly. CHEST AND LUNGS: Clear to auscultation. HEART: Regular rate and rhythm. BREASTS: Are without mass or discharge. AXILLARY EXAM: Negative for adenopathy. BACK: Negative for CVA tenderness. ABDOMEN: Soft, nontender, without palpable masses. PELVIC EXAM: External genitalia appears normal with mild atrophy. Vagina appears normal with mild atrophy. There is no evidence of prolapse at rest. There is moderate urethral mobility with costs and Valsalva. No urinary leakage is demonstrated. Bimanual examination is negative for mass or tenderness. RECTAL EXAM: Rectovaginal exam is negative for mass or tenderness and is negative for occult blood. There is good sphincter tone. EXTREMITIES: Nontender. IMPRESSION: 1. 68-year-old menopausal female status post TERRANCE and RSO with worsening stress urinary incontinence 2. Possible mixed urinary incontinence. PLAN: 1. Pap smears have been discontinued. 2. Self breast awareness was discussed with the patient. 3. Screening mammogram will be done today. 4. We have had a long discussion regarding urinary incontinence. I recommended that she do regular [place] exercises. She would like a referral for stress urinary incontinence. She will be referred to Dr. Anderson at [facility] u[facility] department. 5. She did get a flu shot this past fall. 6. Osteoporosis prevention has been discussed. She had a normal bone density test on 09/03/2016. We will plan on repeating this in approximately 2021. 7.She was advised to return in one year for her annual well woman exam.
--- NOTE | 2019-01-24 12:31 | MM ---
Reason for exam: screening (asymptomatic). Last mammogram was performed 1 year and 4 months ago. History: Patient is postmenopausal. Physical Findings: A clinical breast exam by your physician is recommended on an annual basis and results should be correlated with mammographic findings. MG 3D Screening Mammo W/Cad Bilateral CC and MLO view(s) were taken. Prior study comparison: September 29, 2017, bilateral MG 3d screening mammo w/cad. May 03, 2017, left breast MG 3d diag mammo w/cad LT. The breast tissue is heterogeneously dense. This may lower the sensitivity of mammography. There is no discrete abnormality. No significant changes when compared with prior studies. ASSESSMENT: Negative, BI-RAD 1 RECOMMENDATION: Routine screening mammogram of both breasts in 1 year.
== END ==
LOC: WWCWWP 11:16
PROVIDERS: ATTEND Obstetrics & Gynecology
DX: Z12.31 Encounter for screening mammogram for malignant neoplasm of breast (principal)
CPT/HCPCS: 77063; 77067

== ENCOUNTER 2019-05-23 18:32 | Emergency (ER) | payer MEDICARE, OTHER ==
[2019-05-23 18:38] VITALS: RESP 18
--- NOTE | 2019-05-23 19:31 | ED ---
Chest Pain HPI - General Chief Complaint: Chest Pain Stated Complaint: chest pain Time Seen by Provider: 05/23/19 19:08 Source: patient, RN notes reviewed, old records reviewed Mode of arrival: ambulatory Limitations: no limitations - History of Present Illness Initial Comments: This is a 69-year-old female the ER for evaluation. Patient resents today for evaluation regards to chest pain right-sided chest pain. No history of sore pain before pain did start yesterday persisted into today. This can a sharp spreading pain, intermittent not propagated by anything not improved by anything, patient has history of high blood pressure no other significant cardiac risk risk factors. No high cholesterol no diabetes no smoking. Patient does have recent travel history denies light pain or swelling. No recent trauma. No fevers cough or congestion. Denies shortness of breath or diaphoresis MD Complaint: chest pain -: days(s) Onset: during rest, during exertion Pain Location: substernal, right chest Pain Radiation: none Severity: mild Severity scale (1-10): 3 Quality: tightness, sharp Consistency: intermittent Improves With: nothing Worsens With: nothing Context: recent travel Treatments Prior to Arrival: none - Related Data Home Medications Medication Instructions Recorded Confirmed Levothyroxine Sodium [Synthroid] 88 mcg PO DAILY 01/28/15 05/23/19 Multivitamins, Thera [Multivitamin 1 tab PO HS 01/28/15 05/23/19 (formulary)] Oxybutynin Chloride [Ditropan] 5 mg PO BID 01/28/15 05/23/19 traMADol HCl [Ultram] 50 mg PO HS 01/28/15 05/23/19 Atorvastatin [Lipitor] 40 mg PO HS 05/23/19 05/23/19 Fenofibrate 160 mg PO DAILY 05/23/19 05/23/19 Naproxen [Naprosyn] 500 mg PO HS 05/23/19 05/23/19 Pantoprazole [Protonix] 40 mg PO HS 05/23/19 05/23/19 Previous Rx's Medication Instructions Recorded Aspirin 81 mg PO DAILY tab 12/23/17 Allergies Allergy/AdvReac Type Severity Reaction Status Date / Time Penicillins Allergy Rash/Hives Verified 05/23/19 19:31 Review of Systems ROS Statement: Those systems with pertinent positive or pertinent negative responses have been documented in the HPI. ROS Other: All systems not noted in ROS Statement are negative. EKG Findings - EKG Comments: EKG Findings:: EKG shows sinus rhythm rate of 70, [place] 134, QRS 88, QTc 438 Past Medical History Past Medical History: Fibromyalgia, GERD/Reflux, Hyperlipidemia, Osteoarthritis (OA), Thyroid Disorder Additional Past Medical History / Comment(s): cricopharyngeal achalasia, arthritis, IBS, hiatal hernia,short segment barretts esopahagus, DJD,ddd wears back btace,lt eye cataract. Overactive bladder. Hypothyroidism. 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 History of Any Multi-Drug Resistant Organisms: None Reported Past Surgical History: Appendectomy, Hysterectomy Additional Past Surgical History / Comment(s): zuleyma carpel tunnel release, injections in back, several egd's. TERRANCE RS0 in 1977 for a benign mass. Colonoscopy 2015(3rd). Past Anesthesia/Blood Transfusion Reactions: Previous Problems w/ Anesthesia Additional Past Anesthesia/Blood Transfusion Reaction / Comment(s): headache. per pt use care if need for intubation due to hx of cricopharyngeal achalasia Past Psychological History: No Psychological Hx Reported Smoking Status: Never smoker Past Alcohol Use History: Occasional Past Drug Use History: None Reported - Past Family History Mother Family Medical History: Cancer, Diabetes Mellitus Additional Family Medical History / Comment(s): BLADDER AND OVARIAN CANCER AT AGE 72 Father Family Medical History: Cancer Additional Family Medical History / Comment(s): COLON AND SKIN CANCER Sister(s) Family Medical History: Coronary Artery Disease (CAD), Myocardial Infarction (MD) Additional Family Medical History / Comment(s): smoked. had 3-4 mi's and cardiac stents Brother(s) Family Medical History: Cancer Additional Family Medical History / Comment(s): lung cancer, smoked. aslo had a step brother that has esophegeal cancer, hx smoking General Exam Limitations: no limitations General appearance: alert, in no apparent distress Head exam: Present: atraumatic, normocephalic, normal inspection Eye exam: Present: normal appearance, PERRL, EOMI. Absent: scleral icterus, conjunctival injection, periorbital swelling ENT exam: Present: normal exam, mucous membranes moist Neck exam: Present: normal inspection. Absent: tenderness, meningismus, lymphadenopathy Respiratory exam: Present: normal lung sounds bilaterally. Absent: respiratory distress, wheezes, rales, rhonchi, stridor Cardiovascular Exam: Present: regular rate, normal rhythm, normal heart sounds. Absent: systolic murmur, diastolic murmur, rubs, gallop, clicks GI/Abdominal exam: Present: soft, normal bowel sounds. Absent: distended, tenderness, guarding, rebound, rigid Extremities exam: Present: normal inspection, full ROM, normal capillary refill. Absent: tenderness, pedal edema, joint swelling, calf tenderness Back exam: Present: normal inspection Neurological exam: Present: alert, oriented X3, CN II-XII intact Psychiatric exam: Present: normal affect, normal mood Skin exam: Present: warm, dry, intact, normal color. Absent: rash Course Vital Signs 05/23/19 18:36 Temperature 98.2 F Pulse Rate 73 Respiratory 18 Rate Blood Pressure 173/91 O2 Sat by Pulse 98 Oximetry - Reevaluation(s) Reevaluation #1: 05/23/19 21:13 Medical records reviewed Reevaluation #2: 05/23/19 21:13 Pain is diminished still, spreading right-sided pain does not feel like her reflux, patient also not concerned for heart no shortness of breath no heaviness on her chest Chest Pain MDM - MDM 69 female with atypical chest pain chest x-rays negative labwork is normal EKG and troponin are negative, d-dimer is also negative. Patient can be discharged home Disposition Clinical Impression: Chest pain, Atypical chest pain Disposition: HOME SELF-CARE Condition: Good Instructions (If sedation given, give patient instructions): Chest Pain (ED) Is patient prescribed a controlled substance at d/c from ED?: No Referrals: Preet Graham MD [Primary Care Provider] - 1-2 days
--- NOTE | 2019-05-23 20:11 | XR ---
EXAMINATION TYPE: XR chest 2V DATE OF EXAM: 05/23/2019 COMPARISON: 12/19/2018 INDICATION: Chest pain TECHNIQUE: Frontal and lateral views of the chest are obtained. FINDINGS: The heart size is normal. The pulmonary vasculature is normal. The lungs are clear. Stimulator leads are present within the thoracic region. Spondylosis is to the lower thoracic spine. IMPRESSION: 1. No acute pulmonary process.
[2019-05-23 20:47] LABS: Basophils % (A) 0 %; Eosinophils # (A) 0.2 k/uL (0-0.7); Eosinophils % (A) 3 %; HGB 13.3 gm/dL (11.4-16.0); Lymphocytes % (A) 31 %; MCHC 32.4 g/dL (31.0-37.0); MCV 86.6 fL (80.0-100.0); Mean Platelet Volume 6.7; Monocytes # (A) 0.4 k/uL (0-1.0); Monocytes % (A) 6 %; Neutrophils # (A) 3.8 k/uL (1.3-7.7); Neutrophils % (A) 58 %; Platelet Count 226 k/uL (150-450); RBC 4.73 m/uL (3.80-5.40); RDW 14.1 % (11.5-15.5); WBC 6.6 k/uL (3.8-10.6)
[2019-05-23 20:58] LABS: ALT 29 U/L (9-52); AST 35 U/L (14-36); African American GFR (CKD) >90 (>60 ml/min/1.73 sqM); Albumin 4.7 g/dL (3.5-5.0); Alkaline Phosphatase 107 U/L (38-126); Anion Gap 10 mmol/L; Blood Urea Nitrogen 19 mg/dL (7-17); Carbon Dioxide 26 mmol/L (22-30); Chloride 104 mmol/L (98-107); Glucose 109 mg/dL (74-99); Potassium 4.5 mmol/L (3.5-5.1); Sodium 140 mmol/L (137-145); Total Bilirubin 0.4 mg/dL (0.2-1.3)
[2019-05-23 21:03] LABS: D-Dimer 0.43 mg/L FEU (<0.60); INR 0.9 (<1.2); Partial Thromboplastin Time 26.8 sec (22.0-30.0); Prothrombin Time 9.6 sec (9.0-12.0)
[2019-05-23 21:25] VITALS: BP 153/89; PULSE 66; TEMP 98.4
== END 2019-05-23 22:03 | disposition home or self-care (01) ==
LOC: EC 18:32
DX: R07.89 Other chest pain (principal); K21.9 Gastro-esophageal reflux disease without esophagitis; K58.9 Irritable bowel syndrome, unspecified; N32.81 Overactive bladder; E03.9 Hypothyroidism, unspecified; M19.90 Unspecified osteoarthritis, unspecified site; M79.7 Fibromyalgia; E78.5 Hyperlipidemia, unspecified; Z79.890 Hormone replacement therapy; Z79.1 Long term (current) use of non-steroidal anti-inflammatories (NSAID); Z79.899 Other long term (current) drug therapy; Z88.0 Allergy status to penicillin; Z87.19 Personal history of other diseases of the digestive system; Z82.49 Family history of ischemic heart disease and other diseases of the circulatory system
CPT/HCPCS: 36415; 71046; 80053; 83690; 83735; 83880; 84484; 85025; 85379; 85610; 85730; 93005; 99285

== ENCOUNTER 2020-05-09 16:46 | Inpatient (IN) | payer MEDICARE, OTHER ==
--- NOTE | 2020-05-09 17:58 | P.HPOR ---
<Jorge Luis Erickson K - Last Filed: 05/09/20 17:51> History of Present Illness H&P Date: 05/09/20 This patient is a 70-year-old female that is status-post right trigger finger release on 04/28/[address] Martell. Patient was seen and examined by Dr. Martell yesterday in our office, the suture was removed from the volar hand and the patient had no complaints. Patient states she awoke this morning with significant swelling, erythema, warmth of her right middle finger and hand. She states her pain has increased significantly throughout the day. She also notes drainage of the wound. Therefore, she presented to our office for evaluation. The patient was discussed with Dr. Martell, who recommended direct admission to the hospital for IV antibiotics and possible I&D of the right middle finger. At the time of my exam, the patient is complaining of severe pain in the right middle finger. The patient states the pain is exacerbated with any movement. She denies fevers, chills, nausea, vomiting. There are no additional complaints. Past Medical History Past Medical History: Fibromyalgia, GERD/Reflux, Hyperlipidemia, Osteoarthritis (OA), Thyroid Disorder Additional Past Medical History / Comment(s): cricopharyngeal achalasia, arthritis, IBS, hiatal hernia,short segment barretts esopahagus, DJD,ddd wears back btace,lt eye cataract. Overactive bladder. Hypothyroidism. 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 several egd's. [facility] RS0 in 1977 for a benign mass. Colonoscopy 2015(3rd). Past Anesthesia/Blood Transfusion Reactions: Previous Problems w/ Anesthesia Additional Past Anesthesia/Blood Transfusion Reaction / Comment(s): headache. per pt use care if need for intubation due to hx of cricopharyngeal achalasia Past Psychological History: No Psychological Hx Reported Smoking Status: Never smoker Past Alcohol Use History: Occasional Past Drug Use History: None Reported - Past Family History Mother Family Medical History: Cancer, Diabetes Mellitus Additional Family Medical History / Comment(s): BLADDER AND OVARIAN CANCER AT AGE 72 Father Family Medical History: Cancer Additional Family Medical History / Comment(s): COLON AND SKIN CANCER Sister(s) Family Medical History: Coronary Artery Disease (CAD), Myocardial Infarction (MS) Additional Family Medical History / Comment(s): smoked. had 3-4 mi's and cardiac stents Brother(s) Family Medical History: Cancer Additional Family Medical History / Comment(s): lung cancer, smoked. aslo had a step brother that has esophegeal cancer, hx smoking Medications and Allergies Home Medications Medication Instructions Recorded Confirmed Type Levothyroxine Sodium [Synthroid] 88 mcg PO DAILY 01/28/15 05/09/20 History Oxybutynin Chloride [Ditropan] 5 mg PO TID 01/28/15 05/09/20 History traMADol HCl [Ultram] 100 mg PO Q6H PRN 01/28/15 05/09/20 History Aspirin 81 mg PO DAILY tab 12/23/17 05/09/20 Rx Atorvastatin [Lipitor] 40 mg PO HS 05/23/19 05/09/20 History Naproxen [Naprosyn] 500 mg PO BID-W/MEALS 05/23/19 05/09/20 History Metoprolol Tartrate [Lopressor] 25 mg PO BID 05/09/20 05/09/20 History Montelukast Sodium [Singulair] 10 mg PO HS 05/09/20 05/09/20 History Omeprazole 20 mg PO BID-W/MEALS 05/09/20 05/09/20 History Potassium Gluconate 99 mg PO DAILY 05/09/20 05/09/20 History Allergies Allergy/AdvReac Type Severity Reaction Status Date / Time Penicillins Allergy Rash/Hives Verified 05/09/20 18:36 Physical Examination On examination of the right hand, there is a healing incision at the base of the right middle finger. No active drainage. There is surrounding erythema, warmth extending throughout the right middle finger. There is swelling throughout the right middle finger. There is significant pain on palpation of the right middle finger. The patient is holding the finger in a flexed position. The patient is unable to tolerate extension of the right middle finger. Sensation is intact to light touch of both sides of the finger. Fingers warm and well perfused with capillary refill distally. Assessment and Plan Assessment: Right middle finger infection. Status-post right trigger finger release 04/28/20. Plan: - The clinical findings were discussed with the patient. The patient was discussed in detail with Dr. Martell. Dr. Martell recommended direct admission to the hospital from our office, for IV antibiotics and possible I&D of the right middle finger. - Patient's last meal was at 10 AM this morning per patient. The patient will be kept NPO at this time. - Further recommendations to follow her clinical course. <Shant Martell - Last Filed: 05/10/20 00:18> Results - Labs Labs: H & H 05/09/20 Range/Units 18:18 Hgb 11.9 (11.4-16.0) gm/dL Hct 37.4 (34.0-46.0) % Result Diagrams: 05/09/20 18:18 Assessment and Plan Plan: Discussed with RADHIKA Erickson. Reviewed and agree with above (amendments/corrections noted below). The patient was subsequently seen and examined by me as well. S: The pain has become progressively more intense. She is unable to move it at all without substantial pain. Medication is not helping. O: Right middle finger: the finger is grossly edematous with fusiform swelling and erythema around the incision. Trace serous drainage but no marky purulence. Marked tenderness along the flexor sheath and pain with any motion, active or passive. Finger rests in a semi-flexed posture. A: Postoperative wound infection and acute flexor tenosynovitis status post right middle trigger finger release P: Clinical findings were discussed with the patient and her . I recommended prompt surgical debridement. We discussed risks and benefits in detail. We reviewed the expected postoperative course, including potential need for additional surgical debridement. She expressed understanding and agreement with the outlined plan. We will forward with irrigation, debridement and flexor tenosynovectomy as soon as possible. Shant Martell D.O. [facility]
[2020-05-09 18:49] LABS: Basophils % (A) 0 %; Eosinophils # (A) 0.2 k/uL (0-0.7); Eosinophils % (A) 2 %; HCT 37.4 % (34.0-46.0); HGB 11.9 gm/dL (11.4-16.0); Lymphocytes # (A) 1.8 k/uL (1.0-4.8); Lymphocytes % (A) 23 %; MCH 27.9 pg (25.0-35.0); MCHC 31.8 g/dL (31.0-37.0); MCV 87.8 fL (80.0-100.0); Monocytes # (A) 0.4 k/uL (0-1.0); Monocytes % (A) 5 %; Neutrophils # (A) 5.2 k/uL (1.3-7.7); Neutrophils % (A) 67 %; Platelet Count 209 k/uL (150-450); RBC 4.26 m/uL (3.80-5.40); WBC 7.8 k/uL (3.8-10.6)
[2020-05-09] MEDS ORDERED: LIDOCAINE 1%-EPI 1:100,000 20 ML VIAL SQ ONE (21:30)
[2020-05-09] MEDS ORDERED: VANCOMYCIN 1,000 MG in SODIUM CHLORIDE 0.9% 250 ML IVPB STA (23:20)
--- NOTE | 2020-05-10 00:09 | P.OP ---
Date of Procedure: 05/09/20 Preoperative Diagnosis: Right middle finger post-operative wound infection with acute flexor tenosynovitis status post trigger finger release Postoperative Diagnosis: Right middle finger post-operative wound infection with acute flexor tenosynovitis status post trigger finger release Procedure(s) Performed: Irrigation and debridement of right middle finger wound and flexor tendon sheath with limited flexor tenosynovectomy Anesthesia: local Surgeon: Shant Martell Estimated Blood Loss (ml): 3 Condition: stable Disposition: no change Indications for Procedure: The patient is pleasant 70-year-old female on whom I recently performed a right middle trigger finger release. Initially, she was doing well; however, in the last 24 hours, she developed rapidly progressing redness, pain and swelling. She was diagnosed with a postop infection with acute flexor tenosynovitis. Treatment options were discussed and surgical debridement was recommended. Risks and benefits were reviewed including (but not limited to) the risks of bleeding, injury to tendons or neurovascular structures, persistent or recurrent infection, wound healing problems, stiffness and possible need for additional surgery. The patient expressed understanding, willingness to accept these risks and wished to proceed with surgery. Consent forms were signed. The surgical site was identified and confirmed by me and the patient. Description of Procedure: After consent was obtained, lidocaine with epinephrine was injected around the planned incision and surgical field using aseptic technique. After an appropriate interval of time, the hand was then prepped and draped in a sterile fashion. A surgical pause was performed, confirming patient identifiers, the operative side, the site and the procedure to be performed. No tourniquet was utilized. Loupe magnification was utilized throughout the case for optimum visualization. An incision was made along the ulnar mid-axial line near the DIP joint. Spreading dissection proceeded down to the flexor sheath. The neurovascular bundle was identified and protected. The subcutaneous tissues were edematous but there was no obvious infectious fluid or tissue. The flexor sheath was sharply opened between the A4 and A5 pulleys. A small amount of thin clear fluid was expressed but there was no marky purulence. The incision from the prior trigger finger release was then sharply reopened. A small amount of thin fry fluid was present and a culture swab was obtained. The subcutaneous tissues were bluntly spread to expose the flexor tendons, which were intact and appeared undamaged. A limited synovectomy was performed, resecting thickened overlying tenosynovium. No gross purulence was identified; there was a small amount of thickened, fibrinous inflammatory tissue around the periphery of the wound which was resected with scissors. The surrounding soft tissues were mechanically debrided while being irrigated with normal saline. A 5 Fr pediatric feeding tube was inserted into the flexor sheath through the distal wound. This was used to copiously flush and irrigate the flexor sheath using normal saline via syringes. The fluid flowed smoothly out the proximal incision. The feeding tube was then withdrawn and inserted through the proximal incision to flush the sheath distally. After thorough irrigation and debridement, the finger appeared substantially less erythematous, and was also softer and less edematous. The wounds were again irrigated with normal saline and the incisions were loosely reapproximated over small sections of a 10 Fr channel drain (to prevent premature closure) with interrupted 5-0 Nylon sutures. A soft, sterile dressing was applied. Excellent hemostasis was maintained throughout the case without the need for a tourniquet. The patient tolerated the procedure well, without adverse reaction or identified complications. Empiric IV antibiotics will be started while intraoperative cultures are in progress.
[2020-05-10] MEDS: HYDROmorphone 0.5 MG/0.5 ML SYRINGE IVP PRN ×5 (00:31→18:38)
[2020-05-10] MEDS ORDERED: HYDROcodone/APAP 7.5-325MG 1 EACH TAB PO PRN ×2 (09:52→10:35)
[2020-05-10] MEDS ORDERED: diphenhydrAMINE 50 MG/ML 1 ML VIAL IVP PRN (10:41)
--- NOTE | 2020-05-10 10:51 | P.PN ---
Subjective Progress Note Date: 05/10/20 The patient was seen and examined at the bedside. She reports persistent pain but substantially improved when compared to before I&D. Denies nausea, vomiting or abdominal pain. She does admit to a penicillin allergy which causes hives. She notes that she hasn't had PCN since she was a child. Objective - Vital Signs Vital signs: Vital Signs Temp 99 F 05/10/20 08:04 Pulse 77 05/10/20 08:04 Resp 18 05/10/20 08:04 BP 145/75 05/10/20 08:04 Pulse Ox 95 05/10/20 08:04 Intake & Output 05/09/20 05/10/20 05/10/20 18:59 06:59 18:59 Intake Total 0 Balance 0 Weight 76.328 kg Intake: Oral 0 Other: # Voids 1 1 1 - Exam Right middle finger: The dressings were removed: Moderate interval increase in edema throughout the digit. Marginal worsening of the erythema but still less than before debridement. Tenderness to palpation along the flexor sheath but minimal in the palm. She still finger on exam and does not tolerate passive motion well. The drains were removed: almost no fluid followed. The suture in the palm was removed; the distal ones were left. Both wounds were opened enough to allow drainage. - Labs CBC & Chem 7: 05/09/20 18:18 Labs: Microbiology - Last 24 Hours (Table) 05/09/20 23:43 Wound Culture - Preliminary Hand - Right 05/09/20 23:43 Anaerobic Culture - Preliminary Hand - Right Assessment and Plan Assessment: Postoperative day 1 status post I&D of right middle finger flexor with flexor t enosynovectomy Right middle finger postop wound infection and acute flexor tenosynovitis status post trigger finger release Plan: I reviewed the clinical findings were discussed with the patient. The drains were removed. I recommended beginning an antibiotic regimen of Unasyn and cefoxitin. We discussed the potential allergic reaction. The patient understands the risks and feels comfortable trying the therapy. If she has cutaneous reactions, we will treat symptomatically with antihistamines. Begin soaks in warm saline and betadine (10:1 ratio) for 10-15 minutes at least 4 times a day. Afterwards, reapply a loose sterile dressing of 4x4's and tracie. Dressings may be changed as needed. Encourage range of motion. Resume normal diet. Encourage ambulation for DVT prophylaxis. Continue PRN pain management. We will monitor her closely and reevaluate possible need for repeat surgical debridement. Shant Martell D.O. [facility]
[2020-05-10] MEDS: LEVOTHYROXINE 88 MCG TAB PO SCH (10:55)
[2020-05-10] MEDS: ASPIRIN 81 MG PO SCH (10:56)
[2020-05-10] MEDS: METOPROLOL TARTRATE 25 MG TAB PO SCH ×2 (10:56→22:13)
[2020-05-10] MEDS: PANTOPRAZOLE 40 MG TABLET PO SCH (10:58)
[2020-05-10] MEDS: AMPICILLIN-SULBACTAM 3 GM in SODIUM CHLORIDE 0.9% 100 ML IVPB SCH ×2 (11:42→17:18)
[2020-05-10] MEDS: OXYBUTYNIN CHLORIDE 5 MG TAB PO SCH ×3 (11:50→22:12)
[2020-05-10] MEDS: HYDROcodone/APAP 7.5-325MG 1 EACH TAB PO PRN ×2 (14:40→22:15)
--- NOTE | 2020-05-10 19:42 | P.PN ---
Subjective Progress Note Date: 05/10/20 The patient reports noticeable improvement in both pain and function: she is now able to actively move the finger somewhat. It still hurts to touch it but not as intensely. She has already received a dose of each antibiotic and denies any noticeable reaction. Objective - Vital Signs Vital signs: Vital Signs Temp 99.0 F 05/10/20 14:31 Pulse 71 05/10/20 14:33 Resp 16 05/10/20 14:33 BP 124/67 05/10/20 14:31 Pulse Ox 95 05/10/20 14:31 Intake & Output 05/10/20 05/10/20 05/11/20 06:59 18:59 06:59 Intake Total 1300 Balance 1300 Intake: Intake, IV Titration 200 Amount Ampicillin-Sulbactam 3 gm 100 In Sodium Chloride 0.9% 100 ml @ 200 mls/hr IVPB Q6HR [facility] Rx#:[id number] cefOXitin 2 gm In Sodium 100 Chloride 0.9% 100 ml @ 200 mls/hr IVPB Q6H [facility] Rx#:[id number] Oral 1100 Other: Voiding Method Toilet # Voids 1 2 - Exam The dressings are clean and dry without strikethrough. The pulp is less edematous and much softer. Erythema is less prominent. Persistent tenderness to palpation but significantly improved from prior exam. She is able to perform limited active flexion and extension and tolerates passive extension when she performs herself. - Labs CBC & Chem 7: 05/09/20 18:18 Labs: Microbiology - Last 24 Hours (Table) 05/09/20 23:43 Gram Stain - Preliminary Hand - Right Wound Culture - Preliminary 05/09/20 23:43 Anaerobic Culture - Preliminary Hand - Right Assessment and Plan Assessment: Postoperative day 1 status post I&D of right middle finger flexor with flexor tenosynovectomy Right middle finger postop wound infection and acute flexor tenosynovitis status post trigger finger release Preliminary cultures: Gram-positive cocci in clusters Plan: The finger has demonstrated excellent clinical improvement. I explained that there is still potential need for future surgical debridement; however, I feel this is less likely, based on her interval progress. Continue empiric IV antibiotics and frequent dilute Betadine soaks. Continue range of motion and activity as tolerated. PRN pain management. Further recommendations to follow.
[2020-05-10] MEDS: ATORVASTATIN 40 MG TAB PO SCH (22:12)
[2020-05-10] MEDS: MONTELUKAST 10 MG TAB PO SCH (22:12)
[2020-05-11] MEDS: AMPICILLIN-SULBACTAM 3 GM in SODIUM CHLORIDE 0.9% 100 ML IVPB SCH ×4 (00:28→17:23)
[2020-05-11] MEDS: HYDROcodone/APAP 7.5-325MG 1 EACH TAB PO PRN ×6 (03:22→23:59)
[2020-05-11] MEDS: LEVOTHYROXINE 88 MCG TAB PO SCH (05:58)
[2020-05-11] MEDS: OXYBUTYNIN CHLORIDE 5 MG TAB PO SCH ×3 (07:29→20:33)
[2020-05-11] MEDS: ASPIRIN 81 MG PO SCH (07:29)
[2020-05-11] MEDS: METOPROLOL TARTRATE 25 MG TAB PO SCH ×2 (07:29→20:33)
[2020-05-11] MEDS: PANTOPRAZOLE 40 MG TABLET PO SCH (07:29)
[2020-05-11] MEDS: POTASSIUM CHLORIDE ER 10 MEQ TAB.ER.PRT PO SCH (07:29)
[2020-05-11] MEDS: HYDROmorphone 0.5 MG/0.5 ML SYRINGE IVP PRN (09:30)
--- NOTE | 2020-05-11 13:37 | P.PN ---
Subjective Progress Note Date: 05/11/20 Principal diagnosis: status post I&D of right middle finger flexor with flexor tenosynovectomy Patient is a pleasant 62-year-old female seen at bedside this morning. She is postop day #2 I&D of right middle finger flexor with flexor tenosynovectomy. She reports improved pain at the right hand. She denies numbness, tingling, fever or chills. She has been elevating the hand as well as doing soaks as directed. She is also been on IV antibiotics. She has no new complaints. Objective - Vital Signs Vital signs: Vital Signs Temp 98.2 F 05/11/20 07:18 Pulse 63 05/11/20 07:18 Resp 16 05/11/20 07:18 BP 159/81 05/11/20 07:18 Pulse Ox 96 05/11/20 07:18 Intake & Output 05/10/20 05/11/20 05/11/20 18:59 06:59 18:59 Intake Total 1300 1350 Balance 1300 1350 Intake: Intake, IV Titration 200 200 Amount Ampicillin-Sulbactam 3 gm 100 100 In Sodium Chloride 0.9% 100 ml @ 200 mls/hr IVPB Q6HR [facility] Rx#:[id number] cefOXitin 2 gm In Sodium 100 100 Chloride 0.9% 100 ml @ 200 mls/hr IVPB Q6H [facility] Rx#:[id number] Oral 1100 1150 Other: Voiding Method Toilet Toilet # Voids 2 2 2 - Exam Inspection of the right hand shows mild general diffuse edema. There is no erythema. Surgical wounds are benign. There is no active drainage or bleeding. She has active range of motion with all digits restricted some due to pain. Sensation to touch is present in all digits and hand. There is less than 2 second capillary refill. There is 2+ radial pulse present. - Constitutional General appearance: Present: no acute distress - Labs CBC & Chem 7: 05/09/20 18:18 Labs: Microbiology - Last 24 Hours (Table) 05/09/20 23:43 Gram Stain - Preliminary Hand - Right Wound Culture - Preliminary Presumptive Staph aureus 05/09/20 23:43 Anaerobic Culture - Preliminary Hand - Right Assessment and Plan (1) Flexor tenosynovitis of finger Narrative/Plan: Microbiology shows presumptive staph aureus. She appears to have improved clinically. She remains afebrile and her white blood cell count is normal. She'll continue with elevation, wound soaks, IV antibiotics, wound care, pain management and medical management. We'll continue to monitor and make further recommendations as appropriate. Current Visit: Yes Status: Acute Priority: Medium Code(s): M65.9 - SYNOVITIS AND TENOSYNOVITIS, UNSPECIFIED SNOMED Code(s): 559276970 Time with Patient: Less than 30
[2020-05-11] MEDS: MONTELUKAST 10 MG TAB PO SCH (20:33)
[2020-05-11] MEDS: ATORVASTATIN 40 MG TAB PO SCH (20:33)
--- NOTE | 2020-05-11 20:48 | P.PN ---
Progress Note - Text Progress Note Date: 05/11/20 The patient was seen and examined at the bedside. She reports continued improvement in pain and function. She has been performing active and passive range of motion exercises and soaking the hand frequently. 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 PE: Both surgical wounds are well-approximated. No drainage. Improved edema in the digit but moderate dorsal swelling across the metacarpals. The patient admits that she may have inadvertently slept on it. This area is not tender to palpation there is no fluctuance or erythema. Minimal pain with midrange passive PIP motion but discomfort with passive extension stretch. She tolerates passive motion from 30-90. Plan: The patient is doing well. I demonstrated additional stretches and range of motion exercises she may perform on her own. I encouraged her to try to push the limits when trying to move the finger. Continue elevation and PRN pain management. Do not anticipate any further surgical intervention at this time. Awaiting final cultures to determine a final antibiotic treatment plan.
[2020-05-12] MEDS: AMPICILLIN-SULBACTAM 3 GM in SODIUM CHLORIDE 0.9% 100 ML IVPB SCH ×5 (00:01→23:20)
[2020-05-12] MEDS: HYDROcodone/APAP 7.5-325MG 1 EACH TAB PO PRN ×5 (03:00→20:41)
[2020-05-12] MEDS: LEVOTHYROXINE 88 MCG TAB PO SCH (06:02)
[2020-05-12] MEDS: METOPROLOL TARTRATE 25 MG TAB PO SCH ×2 (09:31→20:41)
[2020-05-12] MEDS: ONDANSETRON 4 MG/2 ML VIAL IVP SCH ×3 (09:32→23:31)
[2020-05-12] MEDS: ASPIRIN 81 MG PO SCH (09:32)
[2020-05-12] MEDS: OXYBUTYNIN CHLORIDE 5 MG TAB PO SCH ×3 (09:32→20:41)
[2020-05-12] MEDS: PANTOPRAZOLE 40 MG TABLET PO SCH (09:32)
[2020-05-12] MEDS: POTASSIUM CHLORIDE ER 10 MEQ TAB.ER.PRT PO SCH (09:32)
[2020-05-12] MEDS: MONTELUKAST 10 MG TAB PO SCH (20:41)
[2020-05-12] MEDS: ATORVASTATIN 40 MG TAB PO SCH (20:41)
[2020-05-12] MEDS: DOCUSATE 100 MG CAP PO SCH (20:41)
--- NOTE | 2020-05-12 21:44 | P.PN ---
Subjective Progress Note Date: 05/12/20 The patient states that she was working hard on range of motion exercises yesterday but feels that she may have overdone it because her pain was increased overnight. This has been gradually improving and is presently well-controlled with hydrocodone. She has been experiencing some constipation. She denies any other issues or concerns. Objective - Vital Signs Vital signs: Vital Signs Temp 98.5 F 05/12/20 15:00 Pulse 74 05/12/20 15:00 Resp 18 05/12/20 15:00 BP 156/82 05/12/20 15:00 Pulse Ox 97 05/12/20 15:00 Intake & Output 05/12/20 05/12/20 05/13/20 06:59 18:59 06:59 Other: Voiding Method Toilet Toilet Toilet # Voids 1 2 - Exam Resting comfortably in bed. is at bedside. Continued improvement in edema. No erythema. The entire middle finger is much less tender to palpation along the flexor sheath. She is able to perform better active range of motion with less pain. Scant serosanguineous drainage on the dressings. The wounds are nearly closed. - Labs CBC & Chem 7: 05/09/20 18:18 Labs: Microbiology - Last 24 Hours (Table) 05/09/20 23:43 Anaerobic Culture - Preliminary Hand - Right 05/09/20 23:43 Gram Stain - Preliminary Hand - Right Wound Culture - Preliminary Staphylococcus aureus Assessment and Plan Assessment: Postoperative day 3 status post I&D of right middle finger flexor sheath Right middle finger postop wound infection and acute flexor tenosynovitis status post trigger finger release Cultures positive for essentially pansensitive MSSA Plan: I discussed the clinical and laboratory findings with the patient and her . While she continues to demonstrate clinical improvement, I feel it would be beneficial to administer some additional doses of IV antibiotics prior to discharge and transition to oral medications. We will continue the current IV regimen for two more doses of each. Begin oral doxycycline. We will add Colace to address the constipation. Plan for discharge in the morning after completion of the antibiotics. The patient expressed understanding and agreement with the proposed plan.
[2020-05-12] MEDS: DOXYCYCLINE 100 MG CAP PO SCH (23:21)
[2020-05-13] MEDS: HYDROcodone/APAP 7.5-325MG 1 EACH TAB PO PRN ×3 (00:01→06:43)
[2020-05-13] MEDS: LEVOTHYROXINE 88 MCG TAB PO SCH (05:31)
[2020-05-13] MEDS: AMPICILLIN-SULBACTAM 3 GM in SODIUM CHLORIDE 0.9% 100 ML IVPB SCH (05:31)
[2020-05-13] MEDS: POTASSIUM CHLORIDE ER 10 MEQ TAB.ER.PRT PO SCH (08:16)
[2020-05-13] MEDS: DOCUSATE 100 MG CAP PO SCH (08:16)
[2020-05-13] MEDS: ONDANSETRON 4 MG/2 ML VIAL IVP SCH (08:16)
[2020-05-13] MEDS: PANTOPRAZOLE 40 MG TABLET PO SCH (08:16)
[2020-05-13] MEDS: METOPROLOL TARTRATE 25 MG TAB PO SCH (08:16)
[2020-05-13] MEDS: ASPIRIN 81 MG PO SCH (08:16)
[2020-05-13] MEDS: OXYBUTYNIN CHLORIDE 5 MG TAB PO SCH (08:16)
[2020-05-13 08:51] VITALS: BP 140/82; PULSE 65; RESP 14; TEMP 98.8
--- NOTE | 2020-05-13 09:19 | P.DS ---
Providers Date of admission: 05/09/20 17:03 Expected date of discharge: 05/13/20 Attending physician: Shant Martell DO Primary care physician: Preet Graham - Sandhya Diagnosis(es) (1) Postoperative infection Current Visit: Yes Status: Acute (2) Flexor tenosynovitis of finger Current Visit: Yes Status: Acute Priority: Medium Hospital Course: The patient is a 70-year-old female who developed a postoperative infection after a right middle trigger finger release. She was admitted and underwent surgical debridement. Please see operative report for full details of the procedure. She received IV antibiotics and showed gradual improvement with local wound care, frequent soaks and early range of motion. Final cultures demonstrated methicillin-sensitive staph aureus. At this time, her pain is well-controlled on oral medications, her vital signs are stable (with the exception of some blood pressure lability) and she is deemed fit for discharge home. Patient Condition at Discharge: Good Plan - Discharge Summary Discharge Rx Participant: No New Discharge Prescriptions: New HYDROcodone/APAP 7.5-325MG [[place] 7.5-325] 2 tab PO Q6H PRN 3 Days #24 tab PRN Reason: Pain Doxycycline [Vibramycin] 100 mg PO BID 14 Days #28 capsule No Action traMADol HCl [Ultram] 100 mg PO Q6H PRN PRN Reason: Pain Oxybutynin Chloride [Ditropan] 5 mg PO TID Levothyroxine Sodium [Synthroid] 88 mcg PO DAILY Aspirin 81 mg PO DAILY tab Naproxen [Naprosyn] 500 mg PO BID-W/MEALS Atorvastatin [Lipitor] 40 mg PO HS Potassium Gluconate 99 mg PO DAILY Montelukast Sodium [Singulair] 10 mg PO HS Metoprolol Tartrate [Lopressor] 25 mg PO BID Omeprazole 20 mg PO BID-W/MEALS Discharge Medication List Levothyroxine Sodium [Synthroid] 88 mcg PO DAILY 01/28/15 [History] Oxybutynin Chloride [Ditropan] 5 mg PO TID 01/28/15 [History] traMADol HCl [Ultram] 100 mg PO Q6H PRN 01/28/15 [History] Aspirin 81 mg PO DAILY tab 12/23/17 [Rx] Atorvastatin [Lipitor] 40 mg PO HS 05/23/19 [History] Naproxen [Naprosyn] 500 mg PO BID-W/MEALS 05/23/19 [History] Metoprolol Tartrate [Lopressor] 25 mg PO BID 05/09/20 [History] Montelukast Sodium [Singulair] 10 mg PO HS 05/09/20 [History] Omeprazole 20 mg PO BID-W/MEALS 05/09/20 [History] Potassium Gluconate 99 mg PO DAILY 05/09/20 [History] Doxycycline [Vibramycin] 100 mg PO BID 14 Days #28 capsule 05/12/20 [Rx] HYDROcodone/APAP 7.5-325MG [[place] 7.5-325] 2 tab PO Q6H PRN 3 Days #24 tab 05/12/20 [Rx] Follow up Appointment(s)/Referral(s): Shant Martell DO [Medical Doctor] - 1 Week Activity/Diet/Wound Care/Special Instructions: Orthopedic Postoperative Discharge Instructions Continue elevating the right hand to decrease pain and swelling. Use hydrocodone or [id number] pain medication as directed. After discharge, continue soaks in warm saline (or clean water) and betadine (10:1 ratio) for 10-15 minutes at least three times a day until no longer draining. Afterwards, reapply a light, sterile dressing of 4x4's and tracie. May leave open to the air once no longer draining. Ok to use the hand as tolerated for light activities (eating/dressing/etc). Ok to shower and get hand wet with soap and water. Perform finger [id number] exercises frequently throughout the day. No squeeze balls. Call as soon as possible to schedule a follow-up appointment with Dr. Martell to be seen in approximately 1 week. Discharge Disposition: HOME SELF-CARE
--- NOTE | 2020-05-13 09:24 | P.PN ---
Progress Note - Text Progress Note Date: 05/13/20 Regarding the need for inpatient treatment: The patient is a 70-year-old female who developed a postoperative infection and acute flexor tenosynovitis after a right middle trigger finger release. She was admitted and initially underwent urgent surgical debridement. She required close inpatient monitoring, as there was potential need for serial debridements. She was kept inpatient for empiric IV antibiotic treatment while intraoperative cultures were progress.
[2020-05-13] MEDS: DOXYCYCLINE 100 MG CAP PO SCH (10:07)
== END 2020-05-13 11:00 | disposition home or self-care (01) | DRG 941 ==
LOC: 1SOBS 17:03 → OBSVTOIN 05-13 09:15 → UNDODISOB 05-13 11:00
PROVIDERS: ADMIT Orthopaedic Surgery; ATTEND Orthopaedic Surgery
PROC: 0LB70ZZ Excision of Right Hand Tendon, Open Approach (ICD-10-PCS; principal; 2020-05-09)
DX: T81.42XD Infection following a procedure, deep incisional surgical site, subsequent encounter (principal); M65.141 Other infective (teno)synovitis, right hand; E78.5 Hyperlipidemia, unspecified; M19.90 Unspecified osteoarthritis, unspecified site; K21.9 Gastro-esophageal reflux disease without esophagitis; N32.81 Overactive bladder; E03.9 Hypothyroidism, unspecified; K59.00 Constipation, unspecified; K22.70 Barrett's esophagus without dysplasia; M79.7 Fibromyalgia; K58.9 Irritable bowel syndrome, unspecified; M51.36 Other intervertebral disc degeneration, lumbar region; K44.9 Diaphragmatic hernia without obstruction or gangrene; Z79.890 Hormone replacement therapy; Z79.82 Long term (current) use of aspirin; Z79.899 Other long term (current) drug therapy; Z90.710 Acquired absence of both cervix and uterus; Z90.49 Acquired absence of other specified parts of digestive tract; Z98.890 Other specified postprocedural states; Z88.0 Allergy status to penicillin; Z83.3 Family history of diabetes mellitus; Z80.41 Family history of malignant neoplasm of ovary; Z80.8 Family history of malignant neoplasm of other organs or systems; Z80.0 Family history of malignant neoplasm of digestive organs; Z80.52 Family history of malignant neoplasm of bladder; Z82.49 Family history of ischemic heart disease and other diseases of the circulatory system; Z80.1 Family history of malignant neoplasm of trachea, bronchus and lung
CPT/HCPCS: 85025; 87070; 87075; 87077; 87186; 87205

== ENCOUNTER 2020-05-16 09:40 | Inpatient (IN) | payer MEDICARE, OTHER ==
[2020-05-16] MEDS ORDERED: HYDROcodone/APAP 7.5-325MG 1 EACH TAB PO PRN (11:27)
--- NOTE | 2020-05-16 12:10 | P.HPOR ---
History of Present Illness H&P Date: 05/16/20 Chief Complaint: Right middle finger flexor tenosynovitis s/p trigger finger release The patient is a 70 year old female who returned to our office this morning due to increased swelling and pain in her right middle finger. She is status post right middle trigger finger release on 04/28/2020. The patient was direct admitted last Tuesday due to acute flexor tenosynovitis and a bedside I&D was performed on 05/09/2020. A clear fluid was found along the flexor tendon sheath at that time. No marky purulence. The finger improved after the bedside I&D and IV antibiotics. Cultures revealed MSSA during her last admission. She was discharged home on 05/13/2020 with doxycycline. She called the office this morning due to increase pain and swelling in the finger that started last night. Up to that point, the finger was continuing to improve. She has been taking doxycycline as prescribed. She has been using Tramadol for pain. The patient denies wound drainage. She quit soaking it yesterday because it looked like it was closing up. The pain had gone away almost completely, but the pain returned last night. She denies fever and chills. Review of Systems Constitutional: Denies chills, Denies fever Cardiovascular: Denies chest pain, Denies shortness of breath Respiratory: Denies cough Gastrointestinal: Denies abdominal pain, Denies diarrhea, Denies nausea, Denies vomiting Musculoskeletal: right: hand pain, hand stiffness, hand swelling Past Medical History Past Medical History: Eye Disorder, Fibromyalgia, GERD/Reflux, Hyperlipidemia, Hypertension, Osteoarthritis (OA), Thyroid Disorder Additional Past Medical History / Comment(s): Pt recently admitted to [facility] on 05/09/20 with R middle finger post op infection with I&D. Other hx: Criciphangeal achlasia-top and bottom muscle, pt does not tolerate statins d/t leg pain, IBS, hiatal hernia, short segment Hager's esophagus, chronic low back pain with back stimulator in place with rechargeable battery, arhtritis in multiple joints, hypothyroid, overactive bladder, constipation, L eye cataract. 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 Past Anesthesia/Blood Transfusion Reactions: Previous Problems w/ Anesthesia Additional Past Anesthesia/Blood Transfusion Reaction / Comment(s): Headaches. Pt states intubate with care d/t cricopharygeal achlasia-top and bottom muscles affected. Smoking Status: Never smoker - Past Family History Mother Family Medical History: Cancer, Diabetes Mellitus Additional Family Medical History / Comment(s): BLADDER AND OVARIAN CANCER AT AGE 72 Father Family Medical History: Cancer Additional Family Medical History / Comment(s): COLON AND SKIN CANCER Sister(s) Family Medical History: Coronary Artery Disease (CAD), Myocardial Infarction ([place]) Additional Family Medical History / Comment(s): Sister had 3 or 4 MIs with firt one at age 68yrs. She has coronary stents. Brother(s) Family Medical History: Cancer Additional Family Medical History / Comment(s): Brother was a smoker. He of lung cancer. Medications and Allergies Home Medications Medication Instructions Recorded Confirmed Type Levothyroxine Sodium [Synthroid] 88 mcg PO DAILY 01/28/15 05/16/20 History Oxybutynin Chloride [Ditropan] 5 mg PO TID 01/28/15 05/16/20 History traMADol HCl [Ultram] 100 mg PO Q6H PRN 01/28/15 05/16/20 History Atorvastatin [Lipitor] 40 mg PO HS 05/23/19 05/16/20 History Naproxen [Naprosyn] 500 mg PO AC-BID 05/23/19 05/16/20 History Metoprolol Tartrate [Lopressor] 25 mg PO BID 05/09/20 05/16/20 History Montelukast Sodium [Singulair] 10 mg PO HS 05/09/20 05/16/20 History Omeprazole 20 mg PO AC-BID 05/09/20 05/16/20 History Potassium Gluconate 99 mg PO DAILY 05/09/20 05/16/20 History Doxycycline [Vibramycin] 100 mg PO BID 14 Days #28 capsule 05/12/20 05/16/20 Rx HYDROcodone/APAP 7.5-325MG [[place] 2 tab PO Q6H PRN 3 Days #24 tab 05/12/20 05/16/20 Rx 7.5-325] Aspirin EC [Ecotrin Low Dose] 81 mg PO DAILY 05/16/20 05/16/20 History Allergies Allergy/AdvReac Type Severity Reaction Status Date / Time Penicillins Allergy Rash/Hives Verified 05/16/20 10:59 Physical Examination The patient is a 70 y/o female in no acute distress. She is alert and oriented x3. Exam of the right hand reveals moderate edema to the entire right middle finger. There is a healing incision to the volar aspect of the hand. No active drainage is present and the wound appears closed. No significant erythema or calor noted. Range of motion of the finger is limited due to pain and guarding. Flexor tendons are intact to the right middle finger. The hand is warm and well-perfused, capillary refill <2 seconds. There is slight numbness to the right middle finger, which is developed last night. No other numbness noted. Assessment and Plan (1) Flexor tenosynovitis of finger Current Visit: No Status: Acute Priority: Medium Code(s): M65.9 - SYNOVITIS AND TENOSYNOVITIS, UNSPECIFIED SNOMED Code(s): 143777818 Plan: The clinical findings were discussed with the patient. We recommended direct admission to the hospital from our office for IV antibiotics and close observation of her infection. Infectious disease, Dr. Grider, has been consulted for further assistance with antibiotic therapy. She will be started on cefazolin 2gm Q8 hours until seen by Dr. Grider. She will remain NPO, she had cereal this morning and a little coffee around 7am today. A formal I&D may be performed this evening or tomorrow morning if the finger continues to worsen. We will closely monitor her this afternoon and tonight.
[2020-05-16 15:43] LABS: Basophils % (A) 0 %; Eosinophils # (A) 0.1 k/uL (0-0.7); Eosinophils % (A) 2 %; HGB 12.1 gm/dL (11.4-16.0); Lymphocytes % (A) 30 %; MCH 27.9 pg (25.0-35.0); MCHC 31.9 g/dL (31.0-37.0); MCV 87.3 fL (80.0-100.0); Monocytes # (A) 0.3 k/uL (0-1.0); Monocytes % (A) 5 %; Neutrophils # (A) 3.9 k/uL (1.3-7.7); Neutrophils % (A) 60 %; Platelet Count 283 k/uL (150-450); RBC 4.35 m/uL (3.80-5.40); RDW 13.8 % (11.5-15.5); WBC 6.5 k/uL (3.8-10.6)
[2020-05-16 16:04] LABS: African American GFR (CKD) >90 (>60 ml/min/1.73 sqM); Anion Gap 8 mmol/L; Blood Urea Nitrogen 18 mg/dL (7-17); C Reactive Protein 10.1 mg/L (<10.0); Calcium 9.4 mg/dL (8.4-10.2); Carbon Dioxide 24 mmol/L (22-30); Chloride 106 mmol/L (98-107); Glucose 96 mg/dL (74-99); Non-African American GFR(CKD) >90 (>60 ml/min/1.73 sqM); Potassium 4.2 mmol/L (3.5-5.1); Sodium 138 mmol/L (137-145)
[2020-05-16] MEDS: PANTOPRAZOLE 40 MG TABLET PO SCH (16:24)
[2020-05-16] MEDS: OXYBUTYNIN CHLORIDE 5 MG TAB PO SCH ×2 (16:25→21:46)
[2020-05-16] MEDS: traMADol 50 MG TAB PO PRN ×2 (16:26→21:46)
[2020-05-16 18:17] LABS: Erythrocyte Sedimentation Rate 35 mm/hr (0-20)
--- NOTE | 2020-05-16 18:23 | P.PN ---
Progress Note - Text Progress Note Date: 05/16/20 S: The patient reports some fluctuation in the pain level, but it has not changed/increased substantially. She has been working on range of motion and is still able to move it fairly well. O: Right middle finger: Mild hyperemia but no erythema. Diffuse edema throughout the middle finger. The volar subcutaneous tissues are still relatively soft (not tense). Tenderness to palpation along the flexor sheath. No tenderness in the palm. She is able to perform limited active motion (approximately 70 PIP arc) with only mild pain in the midrange. Pain with passive stretch or passive flexion beyond 90. A: Right middle finger flexor tenosynovitis Status post irrigation and debridement of right middle finger and flexor sheath on 05/09/20 Post-op wound infection status post trigger finger release P: I discussed the clinical findings with the patient. Though this could be a worsening of the infection, I explained that it may also be simply a transient increase in edema now that the wounds have completely closed. If so, it may soon equilibrate and the pain should decrease. I would not recommend surgical intervention at this time. Continue empiric IV antibiotics - Dr. Morris contributions. Continue active and passive range of motion exercises. NPO after midnight. We will reevaluate the clinical picture in the morning and determine whether repeat surgical debridement would be beneficial. Shant Martell D.O. [facility]
[2020-05-16] MEDS: ATORVASTATIN 40 MG TAB PO SCH (20:42)
[2020-05-16] MEDS: METOPROLOL TARTRATE 25 MG TAB PO SCH (20:42)
[2020-05-16] MEDS: MONTELUKAST 10 MG TAB PO SCH (20:42)
--- NOTE | 2020-05-16 22:55 | P.CONS ---
History of Present Illness - Reason for Consult Consult date: 05/16/20 Right hand infection Requesting physician: Shant Martell - Chief Complaint Right hand pain swelling x few days - History of Present Illness Patient is a 70-year-old female in this patient with a past medical history significant for right middle finger flexor tenosynovitis status post trigger finger release on 04/28/2020, patient subsequently was admitted to the hospital about a week ago on Tuesday in this patient noticed to have acute flexor tenosynovitis patient did have a bedside I&D performed on 05/09/2020 patient did have local wound cultures came positive with MSSA the patient was treated with IV antibiotic till 05/13/2020 and subsequent discharged home on oral doxycycline patient presented back to her surgeon this morning with recurrence of swelling and pain to the surgical site on the right hand, patient become there is no pain into the right hand surgical site to be throbbing intensity 78 out of 10 and no radiation patient did have swelling and some redness but no drainage and has been complaining of feeling cold and chills patient has been admitted directly to the hospital case was discussed with the by the surgeon, patient has been empirically started on cefazolin 2 g every 8 hours and infection it was consulted for further management of antibiotic therapy Review of Systems Positive point has been mentioned in the HPI rest of the systems are negative Past Medical History Past Medical History: Eye Disorder, Fibromyalgia, GERD/Reflux, Hyperlipidemia, Hypertension, Osteoarthritis (OA), Thyroid Disorder Additional Past Medical History / Comment(s): Pt recently admitted to [facility] on 05/09/20 with R middle finger post op infection with I&D. Other hx: Criciphangeal achlasia-top and bottom muscle, pt does not tolerate statins d/t l eg pain, IBS, hiatal hernia, short segment Hager's esophagus, chronic low back pain with back stimulator in place with rechargeable battery, arhtritis in multiple joints, hypothyroid, overactive bladder, constipation, L eye cataract. 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 Past Anesthesia/Blood Transfusion Reactions: Previous Problems w/ Anesthesia Additional Past Anesthesia/Blood Transfusion Reaction / Comm: Headaches. Pt states intubate with care d/t cricopharygeal achlasia-top and bottom muscles affected. Smoking Status: Never smoker - Past Family History Mother Family Medical History: Cancer, Diabetes Mellitus Additional Family Medical History / Comment(s): BLADDER AND OVARIAN CANCER AT AGE 72 Father Family Medical History: Cancer Additional Family Medical History / Comment(s): COLON AND SKIN CANCER Sister(s) Family Medical History: Coronary Artery Disease (CAD), Myocardial Infarction ([place]) Additional Family Medical History / Comment(s): Sister had 3 or 4 MIs with firt one at age 68yrs. She has coronary stents. Brother(s) Family Medical History: Cancer Additional Family Medical History / Comment(s): Brother was a smoker. He of lung cancer. Medications and Allergies Home Medications Medication Instructions Recorded Confirmed Type Levothyroxine Sodium [Synthroid] 88 mcg PO DAILY 01/28/15 05/16/20 History Oxybutynin Chloride [Ditropan] 5 mg PO TID 01/28/15 05/16/20 History traMADol HCl [Ultram] 100 mg PO Q6H PRN 01/28/15 05/16/20 History Atorvastatin [Lipitor] 40 mg PO HS 05/23/19 05/16/20 History Naproxen [Naprosyn] 500 mg PO AC-BID 05/23/19 05/16/20 History Metoprolol Tartrate [Lopressor] 25 mg PO BID 05/09/20 05/16/20 History Montelukast Sodium [Singulair] 10 mg PO HS 05/09/20 05/16/20 History Omeprazole 20 mg PO AC-BID 05/09/20 05/16/20 History Potassium Gluconate 99 mg PO DAILY 05/09/20 05/16/20 History Doxycycline [Vibramycin] 100 mg PO BID 14 Days #28 capsule 05/12/20 05/16/20 Rx HYDROcodone/APAP 7.5-325MG [[place] 2 tab PO Q6H PRN 3 Days #24 tab 05/12/20 05/16/20 Rx 7.5-325] Aspirin EC [Ecotrin Low Dose] 81 mg PO DAILY 05/16/20 05/16/20 History Allergies Allergy/AdvReac Type Severity Reaction Status Date / Time Penicillins Allergy Rash/Hives Verified 05/16/20 10:59 Physical Exam Vitals: Vital Signs Temp Pulse Resp BP Pulse Ox 05/16/20 20:39 98.2 F 69 16 157/82 97 05/16/20 13:00 98.8 F 64 16 145/81 99 Intake and Output 05/16/20 05/16/20 05/16/20 06:59 14:59 22:59 Intake Total 480 Balance 480 Intake: Oral 480 Other: # Voids 1 Weight 76.204 kg GENERAL DESCRIPTION: An elderly female lying in bed, no distress. No tachypnea or accessory muscle of respiration use. HEENT: Shows Pallor , no scleral icterus. Oral mucous membrane is dry. No pharyngeal erythema or thrush NECK: Trachea central, no thyromegaly. LUNGS: Unlabored breathing. Clear to auscultation anteriorly. No wheeze or crackle. HEART: S1, S2, regular rate and rhythm. No loud murmur ABDOMEN: Soft, no tenderness , guarding or rigidity, no organomegaly EXTREMITIES: Right hand plantar aspect at the site of middle finger trigger release small wound with some swelling no fluctuation or drainage SKIN: No rash, no masses palpable. NEUROLOGICAL: The patient is awake, alert, oriented x3, mood and affect normal. Results CBC & Chem 7: 05/16/20 15:17 05/16/20 15:17 Labs: Abnormal Lab Results - Last 24 Hours (Table) 05/16/20 05/16/20 Range/Units 15:17 15:17 ESR 35 H (0-20) mm/hr BUN 18 H (7-17) mg/dL C-Reactive Protein 10.1 H (<10.0) mg/L Assessment and Plan Assessment: 1-patient with right middle finger trigger release surgical site infection in this patient who did have a I&D of this area about a week ago and those culture were positive for MSSA being readmitted to the hospital with failure of outpatient oral doxycycline therapy (1) Flexor tenosynovitis of finger Current Visit: No Status: Acute Priority: Medium Code(s): M65.9 - SYNOVITIS AND TENOSYNOVITIS, UNSPECIFIED SNOMED Code(s): 669620032 (2) Postoperative infection Current Visit: No Status: Acute Code(s): T81.40XA - INFECTION FOLLOWING A PROCEDURE, UNSPECIFIED, INIT SNOMED Code(s): 79810609 Plan: 1- cefazolin 2 g every 8 hours 2-local wound cultures if the area started to drain 3-blood cultures CRP We will follow on clinical condition and cultures to further adjust medication if needed Thank you for this consultation will follow this patient with you Time with Patient: Greater than 30
[2020-05-17] MEDS: traMADol 50 MG TAB PO PRN ×3 (03:53→20:36)
[2020-05-17] MEDS: LEVOTHYROXINE 88 MCG TAB PO SCH (03:54)
[2020-05-17] MEDS: NON FORMULARY DRUG (Potassium Gluconate [Potassium Gluconate] 99 MG) PO SCH (08:31)
[2020-05-17] MEDS: OXYBUTYNIN CHLORIDE 5 MG TAB PO SCH ×3 (08:43→20:36)
[2020-05-17] MEDS: PANTOPRAZOLE 40 MG TABLET PO SCH ×2 (08:43→16:00)
[2020-05-17] MEDS: METOPROLOL TARTRATE 25 MG TAB PO SCH ×2 (08:43→20:36)
--- NOTE | 2020-05-17 13:12 | P.PN ---
Subjective Progress Note Date: 05/17/20 The patient reports substantial improvement in pain, swelling and function. She performed frequent active and passive motion exercises and feels this has helped. Pain is mild and tolerable at this time. She denies any fevers, chills or systemic feelings of illness. She feels that the finger is doing much better. Objective - Vital Signs Vital signs: Vital Signs Temp 98 F 05/17/20 13:00 Pulse 53 L 05/17/20 13:00 Resp 17 05/17/20 13:00 BP 120/75 05/17/20 13:00 Pulse Ox 95 05/17/20 13:00 Intake & Output 05/16/20 05/17/20 05/17/20 18:59 06:59 18:59 Intake Total 480 1060 Balance 480 1060 Weight 76.204 kg Intake: Intake, IV Titration 100 Amount ceFAZolin 2 gm In Sodium 100 Chloride 0.9% 50 ml @ 100 mls/hr IVPB Q8H [facility] Rx#: [id number] Oral 480 960 Other: # Voids 1 1 - Exam No erythema. The edema in the middle finger has markedly improved. All the phalanges are soft and minimally tender to palpation. Range of motion has improved and she is moving the finger much more easily. No tenderness in the palm. Subjectively intact sensation on both sides of the digit. - Labs CBC & Chem 7: 05/16/20 15:17 05/16/20 15:17 Labs: Abnormal Lab Results - Last 24 Hours (Table) 05/16/20 05/16/20 Range/Units 15:17 15:17 ESR 35 H (0-20) mm/hr BUN 18 H (7-17) mg/dL C-Reactive Protein 10.1 H (<10.0) mg/L Assessment and Plan Assessment: Right middle finger flexor tenosynovitis status post irrigation and debridement of right middle finger and flexor sheath on 05/09/20 Postop wound infection status post right middle trigger finger release on 04/28/20 Plan: I discussed the findings in detail with the patient. She has made excellent clinical improvement. No need for any further surgical intervention at this time. Continue IV antibiotics. Clinically, the patient could likely be discharged today, depending on Dr. Morris antibiotic therapy recommendations. Continue AROM/PROM and activity as tolerated. Encourage ambulation.
[2020-05-17 13:55] VITALS: BMI 27.9
[2020-05-17] MEDS: ATORVASTATIN 40 MG TAB PO SCH (20:36)
[2020-05-17] MEDS: MONTELUKAST 10 MG TAB PO SCH (20:36)
--- NOTE | 2020-05-18 00:59 | PN ---
PROGRESS NOTE DATE OF SERVICE: 05/17/2020 REASON FOR FOLLOWUP: Right middle finger flexor tenosynovitis MSSA. INTERVAL HISTORY: Patient is currently afebrile. Patient is breathing comfortably. The patient right palm incision site swelling redness and pain has slightly decreased. There is no drainage. Denies any chest pain, shortness of breath or cough. No abdominal pain or diarrhea. PHYSICAL EXAMINATION: Blood pressure is 139/74 with a pulse of 78, temperature 98.8. She is 94% on room air. General description is an elderly female up in the bed in no distress. Respiratory system: Unlabored breathing. Clear to auscultation anteriorly. Heart S1, S2. Regular rate and rhythm. ABDOMEN: Soft. No tenderness. Right hand swelling and redness slightly decreased. No drainage. LABS: No new labs have been obtained today. Blood culture has been negative so far. DIAGNOSTIC IMPRESSION AND PLAN: Patient with right middle finger trigger release surgical site infection. Culture was positive for MSSA, admitted to the hospital for failure of doxycycline therapy. Currently on cefazolin. She will have clinical response. She may benefit from a short course of IV Rocephin on discharge and machine adjuster leader case trim to arrange for outpatient Vanco on Tuesday. Continue supportive care. MMODL / IJN: [id number] /
[2020-05-18] MEDS: LEVOTHYROXINE 88 MCG TAB PO SCH (04:38)
[2020-05-18] MEDS: OXYBUTYNIN CHLORIDE 5 MG TAB PO SCH ×3 (07:18→20:02)
[2020-05-18] MEDS: METOPROLOL TARTRATE 25 MG TAB PO SCH ×2 (07:18→19:55)
[2020-05-18] MEDS: PANTOPRAZOLE 40 MG TABLET PO SCH ×2 (07:18→17:20)
[2020-05-18] MEDS: NON FORMULARY DRUG (Potassium Gluconate [Potassium Gluconate] 99 MG) PO SCH (08:37)
[2020-05-18] MEDS: traMADol 50 MG TAB PO PRN ×2 (08:45→17:22)
--- NOTE | 2020-05-18 11:37 | P.PN ---
Subjective Progress Note Date: 05/18/20 Principal diagnosis: Postop infection right middle finger trigger finger release. The patient is a 70 year old female who is currently being treated for an infection to the right hand. She is status post right middle trigger finger release on 04/28/2020. The patient had a bedside I&D on 05/09/2020. She was readmitted 05/16/2020 and is currently on IV antibiotics. Her hand continues to improve significantly. She has no new complaints or concerns today. She has been afebrile. Objective - Vital Signs Vital signs: Vital Signs Temp 98.2 F 05/18/20 04:53 Pulse 76 05/18/20 04:53 Resp 16 05/18/20 04:53 BP 128/73 05/18/20 04:53 Pulse Ox 96 05/18/20 04:53 Intake & Output 05/17/20 05/18/20 05/18/20 18:59 06:59 18:59 Intake Total 1120 1260 Balance 1120 1260 Weight 76.204 kg Intake: Intake, IV Titration 50 100 Amount ceFAZolin 2 gm In Sodium 50 100 Chloride 0.9% 50 ml @ 100 mls/hr IVPB Q8H [facility] Rx#: [id number] Oral 1070 1160 Other: # Voids 1 3 3 - Exam This is a pleasant 62-year-old female in no acute distress. She is alert and oriented 3. Exam of the right hand reveals no erythema and minimal swelling. She has near full extension of the finger and about 50% flexion to the middle finger. She has mild tenderness over the incision site. No active drainage. Neurovascular status the upper extremities intact. - Labs CBC & Chem 7: 05/16/20 15:17 05/16/20 15:17 Labs: Microbiology - Last 24 Hours (Table) 05/16/20 15:17 Blood Culture - Preliminary Blood No Growth after 24 hours Assessment and Plan (1) Postoperative infection Current Visit: No Status: Acute Code(s): T81.40XA - INFECTION FOLLOWING A PROCEDURE, UNSPECIFIED, INIT SNOMED Code(s): 75705950 Plan: The clinical findings are discussed with the patient. The plan is home IV antibiotics for 2 weeks. She will most likely be ready for discharge to home tomorrow.
[2020-05-18] MEDS: ATORVASTATIN 40 MG TAB PO SCH (19:56)
[2020-05-18] MEDS: MONTELUKAST 10 MG TAB PO SCH (20:02)
--- NOTE | 2020-05-19 01:26 | PN ---
PROGRESS NOTE DATE OF SERVICE: 05/18/2020 REASON FOR FOLLOWUP: Right hand middle finger tenosynovitis with MSSA. INTERVAL HISTORY: The patient is currently afebrile. She is breathing comfortably. Denies having chest pain or cough. Right hand pain and swelling have slightly decreased. No drainage. No chest pain. No cough. No abdominal pain. No diarrhea. PHYSICAL EXAMINATION: Blood pressure 133/77 with the pulse of 67, temperature 99.4. She is 95% on room air. General description is an elderly female lying in bed in no distress. RESPIRATORY SYSTEM: Unlabored breathing, clear to auscultation anteriorly. HEART: S1, S2. Regular rate and rhythm. ABDOMEN: Soft, no tenderness. Right hand swelling and redness has improved. LABS: No new labs have been obtained today. Blood culture has been negative. DIAGNOSTIC IMPRESSION AND PLAN: Patient with right middle finger tenosynovitis with recent trigger finger release. Cultures are positive for MSSA. The patient clinically responded to cefazolin. We will try to get a Midline for outpatient IV antibiotic therapy with Rocephin 2 grams daily versus cefazolin 2 grams q.8 at home. We will discuss further with the lead case manager who is working on the outpatient arrangement. Repeat inflammatory markers tomorrow. Continue supportive care. MMODL / IJN: [id number] / ARTURO
[2020-05-19] MEDS: LEVOTHYROXINE 88 MCG TAB PO SCH (05:51)
[2020-05-19 06:00] LABS: Basophils % (A) 0 %; Eosinophils # (A) 0.2 k/uL (0-0.7); Eosinophils % (A) 3 %; HCT 37.8 % (34.0-46.0); HGB 12.2 gm/dL (11.4-16.0); Lymphocytes # (A) 2.3 k/uL (1.0-4.8); Lymphocytes % (A) 31 %; MCHC 32.1 g/dL (31.0-37.0); MCV 87.1 fL (80.0-100.0); Monocytes # (A) 0.5 k/uL (0-1.0); Monocytes % (A) 7 %; Neutrophils # (A) 4.1 k/uL (1.3-7.7); Neutrophils % (A) 56 %; Platelet Count 271 k/uL (150-450); RBC 4.35 m/uL (3.80-5.40); RDW 13.7 % (11.5-15.5); WBC 7.4 k/uL (3.8-10.6)
[2020-05-19 06:16] LABS: African American GFR (CKD) >90 (>60 ml/min/1.73 sqM); Anion Gap 8 mmol/L; Blood Urea Nitrogen 17 mg/dL (7-17); C Reactive Protein 5.5 mg/L (<10.0); Calcium 9.3 mg/dL (8.4-10.2); Carbon Dioxide 26 mmol/L (22-30); Chloride 102 mmol/L (98-107); Glucose 114 mg/dL (74-99); Non-African American GFR(CKD) 79 (>60 ml/min/1.73 sqM); Potassium 4.5 mmol/L (3.5-5.1); Sodium 136 mmol/L (137-145)
[2020-05-19] MEDS: NON FORMULARY DRUG (Potassium Gluconate [Potassium Gluconate] 99 MG) PO SCH (07:38)
[2020-05-19] MEDS: METOPROLOL TARTRATE 25 MG TAB PO SCH (07:39)
[2020-05-19] MEDS: PANTOPRAZOLE 40 MG TABLET PO SCH (07:39)
[2020-05-19] MEDS: OXYBUTYNIN CHLORIDE 5 MG TAB PO SCH ×2 (07:39→15:56)
--- NOTE | 2020-05-19 10:06 | P.DS ---
Providers Date of admission: 05/16/20 10:28 Attending physician: Shant Martell DO Consults: 05/16/20 09:59 Consult Physician Routine Consulting Provider: Keith Grider Consult Reason/Comments: Right middle finger tenosynovitis s/p trigger finger release Do you want consulting provider notified?: Yes Primary care physician: Shant Martell DO - Discharge Diagnosis(es) (1) Flexor tenosynovitis of finger Current Visit: No Status: Acute Priority: Medium Hospital Course: The patient is a 70 year old female who returned to our office on Tuesday morning due to increased swelling and pain in her right middle finger. She is status post right middle trigger finger release on 04/28/2020. The patient was direct admitted last Tuesday due to acute flexor tenosynovitis and a bedside I&D was performed on 05/09/2020. A clear fluid was found along the flexor tendon sheath at that time. No marky purulence. The finger improved after the bedside I&D and IV antibiotics. Cultures revealed MSSA during her last admission. She was discharged home on 05/13/2020 with doxycycline. She called the office on Tuesday morning due to increase pain and swelling in the finger that started late night. Up to that point, the finger was continuing to improve. She has been taking doxycycline as prescribed. She has been using Tramadol for pain. The patient denies wound drainage. She was started on IV antibiotics, cefazolin 2 mg q8 hours, and the finger improved after the first day. The cris ent's finger has continued to improve. A midline catheter was placed this morning and she is ready for discharge home today. On the day of discharge, the right middle finger swelling has improved. There is a healing incision to the volar aspect of the hand. No active drainage is present and the wound appears closed. No significant erythema or calor noted. Range of motion of the finger is limited but has improved since admission. Flexor tendons are intact to the right middle finger. The hand is warm and well-perfused, capillary refill <2 seconds. The numbness has resolved as well. The patient is orthopedically stable for discharge home today with IV antibiotics and close follow up outpatient. Pertinent Studies: Laboratory Tests 05/16/20 05/16/20 05/19/20 15:17 15:17 05:25 WBC 7.4 RBC 4.35 Hgb 12.2 Hct 37.8 ESR 35 H Sodium Glucose C-Reactive Protein 10.1 H 05/19/20 05:25 WBC RBC Hgb Hct ESR Sodium 136 L Glucose 114 H C-Reactive Protein 5.5 Patient Condition at Discharge: Stable Plan - Discharge Summary Discharge Rx Participant: No New Discharge Prescriptions: No Action traMADol HCl [Ultram] 100 mg PO Q6H PRN PRN Reason: Pain Oxybutynin Chloride [Ditropan] 5 mg PO TID Levothyroxine Sodium [Synthroid] 88 mcg PO DAILY Naproxen [Naprosyn] 500 mg PO AC-BID Atorvastatin [Lipitor] 40 mg PO HS Potassium Gluconate 99 mg PO DAILY Montelukast Sodium [Singulair] 10 mg PO HS Metoprolol Tartrate [Lopressor] 25 mg PO BID Omeprazole 20 mg PO AC-BID HYDROcodone/APAP 7.5-325MG [[place] 7.5-325] 2 tab PO Q6H PRN 3 Days #24 tab PRN Reason: Pain Doxycycline [Vibramycin] 100 mg PO BID 14 Days #28 capsule Aspirin EC [Ecotrin Low Dose] 81 mg PO DAILY Discharge Medication List Levothyroxine Sodium [Synthroid] 88 mcg PO DAILY 01/28/15 [History] Oxybutynin Chloride [Ditropan] 5 mg PO TID 01/28/15 [History] traMADol HCl [Ultram] 100 mg PO Q6H PRN 01/28/15 [History] Atorvastatin [Lipitor] 40 mg PO HS 05/23/19 [History] Naproxen [Naprosyn] 500 mg PO AC-BID 05/23/19 [History] Metoprolol Tartrate [Lopressor] 25 mg PO BID 05/09/20 [History] Montelukast Sodium [Singulair] 10 mg PO HS 05/09/20 [History] Omeprazole 20 mg PO AC-BID 05/09/20 [History] Potassium Gluconate 99 mg PO DAILY 05/09/20 [History] Doxycycline [Vibramycin] 100 mg PO BID 14 Days #28 capsule 05/12/20 [Rx] HYDROcodone/APAP 7.5-325MG [[place] 7.5-325] 2 tab PO Q6H PRN 3 Days #24 tab 05/12/20 [Rx] Aspirin EC [Ecotrin Low Dose] 81 mg PO DAILY 05/16/20 [History] Follow up Appointment(s)/Referral(s): Shant Martell DO [Primary Care Provider] - 05/26/20 3:30 pm Activity/Diet/Wound Care/Special Instructions: Antibiotics per Dr. Grider Keep working on range of motion of the finger. Follow up with Dr. Martell in 1 weeks or sooner if issues arise. Discharge Disposition: HOME SELF-CARE
[2020-05-19] MEDS: traMADol 50 MG TAB PO PRN (12:01)
[2020-05-19 12:05] VITALS: BP 117/75; PULSE 63; RESP 18; TEMP 98.2
--- NOTE | 2020-05-19 16:57 | PN ---
PROGRESS NOTE DATE OF SERVICE: 05/19/2020 REASON FOR FOLLOWUP: Right middle finger tenosynovitis and MSSA. INTERVAL HISTORY: The patient is currently afebrile. The patient is breathing comfortably. Overall discomfort to the right hand has decreased. No chest pain or cough. No abdominal pain. No diarrhea. PHYSICAL EXAMINATION: Blood pressure 117/75 with a pulse of 53, temperature 98.2. She is 96% on room air. General description is an elderly female up in the room in no distress. RESPIRATORY SYSTEM: Unlabored breathing. Clear to auscultation anteriorly. HEART: S1, S2. Regular rate and rhythm. ABDOMEN: Soft. No tenderness. Right hand swelling and redness has improved. LABS: White count 7.4. CRP normalized. DIAGNOSTIC IMPRESSION AND PLAN: Patient with right hand tenosynovitis with a right middle finger trigger finger release. Cultures were positive for MSSA on last admission. She clinically responded Cefazolin. She will be switched over to Rocephin 2 grams daily for outpatient IV antibiotic therapy for 10 days and close outpatient followup. MMODL / IJN: [id number] /
== END 2020-05-19 17:03 | disposition home or self-care (01) | DRG 863 ==
LOC: 5NMEDONC 10:28
PROVIDERS: ADMIT Orthopaedic Surgery; ATTEND Orthopaedic Surgery
PROC: 05HC33Z Insertion of Infusion Device into Left Basilic Vein, Percutaneous Approach (ICD-10-PCS; principal; 2020-05-19 12:35)
DX: T81.49XA Infection following a procedure, other surgical site, initial encounter (principal); B95.61 Methicillin susceptible Staphylococcus aureus infection as the cause of diseases classified elsewhere; E78.5 Hyperlipidemia, unspecified; I10 Essential (primary) hypertension; M79.7 Fibromyalgia; K21.9 Gastro-esophageal reflux disease without esophagitis; M65.9 Synovitis and tenosynovitis, unspecified; E03.9 Hypothyroidism, unspecified; M15.9 Polyosteoarthritis, unspecified; K58.1 Irritable bowel syndrome with constipation; K44.9 Diaphragmatic hernia without obstruction or gangrene; K22.70 Barrett's esophagus without dysplasia; G89.29 Other chronic pain; M54.5 Low back pain; N32.81 Overactive bladder; H26.9 Unspecified cataract; Z79.82 Long term (current) use of aspirin; Z79.890 Hormone replacement therapy; Z79.899 Other long term (current) drug therapy; Z88.0 Allergy status to penicillin; Z90.710 Acquired absence of both cervix and uterus; Z90.49 Acquired absence of other specified parts of digestive tract; Z90.89 Acquired absence of other organs; Z99.89 Dependence on other enabling machines and devices; Z87.898 Personal history of other specified conditions; Z80.1 Family history of malignant neoplasm of trachea, bronchus and lung; Z80.41 Family history of malignant neoplasm of ovary; Z80.8 Family history of malignant neoplasm of other organs or systems; Z80.52 Family history of malignant neoplasm of bladder; Z80.0 Family history of malignant neoplasm of digestive organs; Z82.49 Family history of ischemic heart disease and other diseases of the circulatory system; Z83.3 Family history of diabetes mellitus
CPT/HCPCS: 36410; 76937; 80048; 85025; 85652; 86140; 87040

== ENCOUNTER 2020-06-07 20:04 | Inpatient (IN) | payer MEDICARE, OTHER ==
[2020-06-07] MEDS ORDERED: ACETAMINOPHEN TAB 500 MG TAB PO STA (20:40)
[2020-06-07] MEDS ORDERED: IBUPROFEN 600 MG TAB PO STA (20:42)
[2020-06-07] MEDS ORDERED: MORPHINE SULFATE 4 MG/ML SYRINGE IVP STA (20:43)
[2020-06-07] MEDS ORDERED: VANCOMYCIN IV PER PHARMACY 1 EACH MISC MISCELLANE PRN (20:52)
[2020-06-07] MEDS ORDERED: VANCOMYCIN 1,500 MG in SODIUM CHLORIDE 0.9% 250 ML IVPB STA (20:55)
--- NOTE | 2020-06-07 20:59 | ED ---
Fever HPI - General Chief Complaint: Fever Stated Complaint: NVD Time Seen by Provider: 06/07/20 20:18 Source: patient, RN notes reviewed, old records reviewed Mode of arrival: wheelchair Limitations: no limitations - History of Present Illness Initial Comments: 70-year-old female presents to the ER today for evaluation for fever, abdominal pain diarrhea as well as right hand infection. Patient was treated for trigger finger and had surgery for this in mid April. She reports that she subsequently developed infection requiring IV antibiotics and then this switch to oral antibiotics. She finished the oral antibiotic of Keflex yesterday. Since she's been on the antibiotic she's been complaining of diarrhea abdominal distention. At the yellow E stool. She has not been tested for C. diff. She states that since she's finished her last one dose of oral antibiotic yesterday she's noticed increased redness pain and swelling to the right middle digit is a previously was when it was infected and requiring IV antibiotic. Patient arrives with a fever of 102 and feeling generally ill and weak. - Related Data Home Medications Medication Instructions Recorded Confirmed Levothyroxine Sodium [Synthroid] 88 mcg PO DAILY 01/28/15 06/07/20 Oxybutynin Chloride [Ditropan] 5 mg PO TID 01/28/15 06/07/20 traMADol HCl [Ultram] 100 mg PO Q6H PRN 01/28/15 06/07/20 Naproxen [Naprosyn] 500 mg PO AC-BID 05/23/19 06/07/20 Metoprolol Tartrate [Lopressor] 25 mg PO BID 05/09/20 06/07/20 Montelukast Sodium [Singulair] 10 mg PO HS 05/09/20 06/07/20 Omeprazole 20 mg PO AC-BID 05/09/20 06/07/20 Potassium Gluconate 99 mg PO DAILY 05/09/20 06/07/20 Aspirin EC [Ecotrin Low Dose] 81 mg PO DAILY 05/16/20 06/07/20 Allergies Allergy/AdvReac Type Severity Reaction Status Date / Time Penicillins Allergy Rash/Hives Verified 06/07/20 21:21 Wzrrvxv-Fuz-Nyk Reductase AdvReac leg pain Verified 06/07/20 21:21 Inhibitor Review of Systems ROS Statement: Those systems with pertinent positive or pertinent negative responses have been documented in the HPI. ROS Other: All systems not noted in ROS Statement are negative. Past Medical History Past Medical History: Eye Disorder, Fibromyalgia, GERD/Reflux, Hyperlipidemia, Hypertension, Osteoarthritis (OA), Thyroid Disorder Additional Past Medical History / Comment(s): Pt recently admitted to [facility] on 05/09/20 with R middle finger post op infection with I&D. Other hx: Criciphangeal achlasia-top and bottom muscle, pt does not tolerate statins d/t leg pain, IBS, hiatal hernia, short segment Hager's esophagus, chronic low back pain with back stimulator in place with rechargeable battery, arhtritis in multiple joints, hypothyroid, overactive bladder, constipation, L eye cataract. 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 Past Anesthesia/Blood Transfusion Reactions: Previous Problems w/ Anesthesia Additional Past Anesthesia/Blood Transfusion Reaction / Comment(s): Headaches. Pt states intubate with care d/t cricopharygeal achlasia-top and bottom muscles affected. Past Psychological History: No Psychological Hx Reported Smoking Status: Never smoker Past Alcohol Use History: None Reported Past Drug Use History: None Reported - Past Family History Mother Family Medical History: Cancer, Diabetes Mellitus Additional Family Medical History / Comment(s): BLADDER AND OVARIAN CANCER AT AGE 72 Father Family Medical History: Cancer Additional Family Medical History / Comment(s): COLON AND SKIN CANCER Sister(s) Family Medical History: Coronary Artery Disease (CAD), Myocardial Infarction (MS) Additional Family Medical History / Comment(s): Sister had 3 or 4 MIs with firt one at age 68yrs. She has coronary stents. Brother(s) Family Medical History: Cancer Additional Family Medical History / Comment(s): Brother was a smoker. He of lung cancer. General Exam - General Exam Comments Initial Comments: 70-year-old female. Patient appears in moderate discomfort. Limitations: no limitations General appearance: alert, in no apparent distress Head exam: Present: atraumatic, normocephalic, normal inspection Eye exam: Present: normal appearance, PERRL, EOMI. Absent: scleral icterus, conjunctival injection, periorbital swelling ENT exam: Present: normal exam, mucous membranes moist Neck exam: Present: normal inspection. Absent: tenderness, meningismus, lymphadenopathy Respiratory exam: Present: normal lung sounds bilaterally. Absent: respiratory distress, wheezes, rales, rhonchi, stridor Cardiovascular Exam: Present: regular rate GI/Abdominal exam: Present: soft, tenderness (Diffuse abdominal tenderness), normal bowel sounds. Absent: distended, guarding, rebound, rigid Extremities exam: Present: normal inspection, full ROM, normal capillary refill, other (Denies redness and swelling to the right middle flexor portion of the finger. She is able to passively extend the finger. Patient has no wrist pain or swelling.). Absent: tenderness, pedal edema, joint swelling, calf tenderness Back exam: Present: normal inspection Neurological exam: Present: alert, oriented X3, CN II-XII intact Psychiatric exam: Present: normal affect, normal mood Skin exam: Present: warm, dry, intact, normal color. Absent: rash Course Vital Signs 06/07/20 06/07/20 20:10 22:14 Temperature 102.5 F H 99.8 F H Pulse Rate 111 H Respiratory 22 Rate Blood Pressure 166/80 O2 Sat by Pulse 97 Oximetry Medical Decision Making - Medical Decision Making This is a 70-year-old female who presents the ER today for evaluation for concerns for diarrhea and right middle finger pain. She's been treated with antibiotics for her postop infection from right trigger finger. She reports she's been off of oral antibiotic of Keflex for one day and noticed increased redness and swelling today. She rides emergency department with abdominal pain and a fever of 102.5. Patient was initiated on septic workup. Blood work was reviewed relatively unremarkable. CBC was within normal limits. Mildly sunny vated CRP at 25. She does have some pain and swelling to the right middle finger. Discussed concern for developing tenosynovitis. Patient with also multiple antibiotics had testing for C. diff and this is positive. Patient started on vancomycin for the finger as well as IV Flagyl and also given oral vancomycin for C. diff. Patient will have computed tomography scan pending at this time. I discussed the case with Dr. Grant whom discussed the case with Dr. Martell as well as [facility] hospitalist who agrees to admit for C. diff colitis, and possible early tenosynovitis of the finger. - Lab Data Result diagrams: 06/07/20 21:04 06/07/20 21:04 Lab Results 06/07/20 06/07/20 06/07/20 Range/Units 21:04 21:04 21:04 WBC 8.5 (3.8-10.6) k/uL RBC 4.69 (3.80-5.40) m/uL Hgb 12.9 (11.4-16.0) gm/dL Hct 40.3 (34.0-46.0) % MCV 85.8 (80.0-100.0) fL MCH 27.5 (25.0-35.0) pg MCHC 32.1 (31.0-37.0) g/dL RDW 14.2 (11.5-15.5) % Plt Count 194 (150-450) k/uL Neutrophils % 83 % Lymphocytes % 10 % Monocytes % 4 % Eosinophils % 2 % Basophils % 0 % Neutrophils # 7.0 (1.3-7.7) k/uL Lymphocytes # 0.9 L (1.0-4.8) k/uL Monocytes # 0.3 (0-1.0) k/uL Eosinophils # 0.1 (0-0.7) k/uL Basophils # 0.0 (0-0.2) k/uL ESR 25 H (0-20) mm/hr PT 9.6 (9.0-12.0) sec INR 0.9 (<1.2) APTT 24.6 (22.0-30.0) sec Sodium 139 (137-145) mmol/L Potassium 4.1 (3.5-5.1) mmol/L Chloride 104 (98-107) mmol/L Carbon Dioxide 24 (22-30) mmol/L Anion Gap 11 mmol/L BUN 17 (7-17) mg/dL Creatinine 0.76 (0.52-1.04) mg/dL Est GFR (CKD-EPI)AfAm >90 (>60 ml/min/1.73 sqM) Est GFR (CKD-EPI)NonAf 81 (>60 ml/min/1.73 sqM) Glucose 119 H (74-99) mg/dL Plasma Lactic Acid Cong (0.7-2.0) mmol/L Calcium 9.6 (8.4-10.2) mg/dL Total Bilirubin 0.5 (0.2-1.3) mg/dL AST 31 (14-36) U/L ALT 22 (4-34) U/L Alkaline Phosphatase 95 (38-126) U/L C-Reactive Protein 9.2 (<10.0) mg/L Total Protein 8.2 (6.3-8.2) g/dL Albumin 4.8 (3.5-5.0) g/dL Urine Color Urine Appearance (Clear) Urine pH (5.0-8.0) Ur Specific [place] (1.001-1.035) Urine Protein (Negative) Urine Glucose (UA) (Negative) Urine Ketones (Negative) Urine Blood (Negative) Urine Nitrite (Negative) Urine Bilirubin (Negative) Urine Urobilinogen (<2.0) mg/dL Ur Leukocyte Esterase (Negative) Urine RBC (0-5) /hpf Urine WBC (0-5) /hpf Ur Squamous Epith Cells (0-4) /hpf Urine Bacteria (None) /hpf Hyaline Casts (0-2) /lpf Urine Mucus (None) /hpf Stool Occult Blood (Negative) C. difficile (EIA) Intrp (Negative) 06/07/20 06/07/20 06/07/20 Range/Units 21:04 21:04 21:04 WBC (3.8-10.6) k/uL RBC (3.80-5.40) m/uL Hgb (11.4-16.0) gm/dL Hct (34.0-46.0) % MCV (80.0-100.0) fL MCH (25.0-35.0) pg MCHC (31.0-37.0) g/dL RDW (11.5-15.5) % Plt Count (150-450) k/uL Neutrophils % % Lymphocytes % % Monocytes % % Eosinophils % % Basophils % % Neutrophils # (1.3-7.7) k/uL Lymphocytes # (1.0-4.8) k/uL Monocytes # (0-1.0) k/uL Eosinophils # (0-0.7) k/uL Basophils # (0-0.2) k/uL ESR (0-20) mm/hr PT (9.0-12.0) sec INR (<1.2) APTT (22.0-30.0) sec Sodium (137-145) mmol/L Potassium (3.5-5.1) mmol/L Chloride (98-107) mmol/L Carbon Dioxide (22-30) mmol/L Anion Gap mmol/L BUN (7-17) mg/dL Creatinine (0.52-1.04) mg/dL Est GFR (CKD-EPI)AfAm (>60 ml/min/1.73 sqM) Est GFR (CKD-EPI)NonAf (>60 ml/min/1.73 sqM) Glucose (74-99) mg/dL Plasma Lactic Acid Cong 1.1 (0.7-2.0) mmol/L Calcium (8.4-10.2) mg/dL Total Bilirubin (0.2-1.3) mg/dL AST (14-36) U/L ALT (4-34) U/L Alkaline Phosphatase (38-126) U/L C-Reactive Protein (<10.0) mg/L Total Protein (6.3-8.2) g/dL Albumin (3.5-5.0) g/dL Urine Color Urine Appearance (Clear) Urine pH (5.0-8.0) Ur Specific [place] (1.001-1.035) Urine Protein (Negative) Urine Glucose (UA) (Negative) Urine Ketones (Negative) Urine Blood (Negative) Urine Nitrite (Negative) Urine Bilirubin (Negative) Urine Urobilinogen (<2.0) mg/dL Ur Leukocyte Esterase (Negative) Urine RBC (0-5) /hpf Urine WBC (0-5) /hpf Ur Squamous Epith Cells (0-4) /hpf Urine Bacteria (None) /hpf Hyaline Casts (0-2) /lpf Urine Mucus (None) /hpf Stool Occult Blood Positive H (Negative) C. difficile (EIA) Intrp Positive A (Negative) 06/07/20 Range/Units 21:30 WBC (3.8-10.6) k/uL RBC (3.80-5.40) m/uL Hgb (11.4-16.0) gm/dL Hct (34.0-46.0) % MCV (80.0-100.0) fL MCH (25.0-35.0) pg MCHC (31.0-37.0) g/dL RDW (11.5-15.5) % Plt Count (150-450) k/uL Neutrophils % % Lymphocytes % % Monocytes % % Eosinophils % % Basophils % % Neutrophils # (1.3-7.7) k/uL Lymphocytes # (1.0-4.8) k/uL Monocytes # (0-1.0) k/uL Eosinophils # (0-0.7) k/uL Basophils # (0-0.2) k/uL ESR (0-20) mm/hr PT (9.0-12.0) sec INR (<1.2) APTT (22.0-30.0) sec Sodium (137-145) mmol/L Potassium (3.5-5.1) mmol/L Chloride (98-107) mmol/L Carbon Dioxide (22-30) mmol/L Anion Gap mmol/L BUN (7-17) mg/dL Creatinine (0.52-1.04) mg/dL Est GFR (CKD-EPI)AfAm (>60 ml/min/1.73 sqM) Est GFR (CKD-EPI)NonAf (>60 ml/min/1.73 sqM) Glucose (74-99) mg/dL Plasma Lactic Acid Cong (0.7-2.0) mmol/L Calcium (8.4-10.2) mg/dL Total Bilirubin (0.2-1.3) mg/dL AST (14-36) U/L ALT (4-34) U/L Alkaline Phosphatase (38-126) U/L C-Reactive Protein (<10.0) mg/L Total Protein (6.3-8.2) g/dL Albumin (3.5-5.0) g/dL Urine Color Yellow Urine Appearance Clear (Clear) Urine pH 8.0 (5.0-8.0) Ur Specific [place] 1.020 (1.001-1.035) Urine Protein Negative (Negative) Urine Glucose (UA) Negative (Negative) Urine Ketones Negative (Negative) Urine Blood Negative (Negative) Urine Nitrite Negative (Negative) Urine Bilirubin Negative (Negative) Urine Urobilinogen <2.0 (<2.0) mg/dL Ur Leukocyte Esterase Small H (Negative) Urine RBC 2 (0-5) /hpf Urine WBC 9 H (0-5) /hpf Ur Squamous Epith Cells 7 H (0-4) /hpf Urine Bacteria Rare H (None) /hpf Hyaline Casts 1 (0-2) /lpf Urine Mucus Rare H (None) /hpf Stool Occult Blood (Negative) C. difficile (EIA) Intrp (Negative) 06/07/20 23:11 EKG shows normal sinus rhythm normal EKG. Ventricular rate of 87 bpm. Rules 148 ms. QRS duration is 80 ms. QT QTc is 356/428 ms. - Radiology Data Radiology results: report reviewed Hand x-ray shows mild soft tissue swelling. No fracture. KUB shows nonacute abdomen. Chest x-ray shows no active cardiopulmonary disease. Disposition Clinical Impression: C. difficile colitis, Flexor tenosynovitis of finger Disposition: ADMITTED IP TO THIS HOSP Condition: Stable Is patient prescribed a controlled substance at d/c from ED?: No Referrals: Preet Graham MD [Primary Care Provider] - 1-2 days Time of Disposition: 23:17
[2020-06-07] MEDS ORDERED: metroNIDAZOLE-NS PMX 500 MG in SALINE 1 100ML.BAG IVPB STA (21:01)
[2020-06-07] MEDS: SODIUM CHLORIDE 0.9% 1,000 ML IV SCH (21:26)
[2020-06-07] MEDS: SODIUM CHLORIDE 0.9% 500 ML 500 ML IV SCH ×2 (21:27→22:42)
[2020-06-07 21:34] LABS: Basophils % (A) 0 %; Eosinophils # (A) 0.1 k/uL (0-0.7); Eosinophils % (A) 2 %; HCT 40.3 % (34.0-46.0); HGB 12.9 gm/dL (11.4-16.0); Lymphocytes # (A) 0.9 k/uL (1.0-4.8); Lymphocytes % (A) 10 %; MCH 27.5 pg (25.0-35.0); MCHC 32.1 g/dL (31.0-37.0); MCV 85.8 fL (80.0-100.0); Mean Platelet Volume 7.1; Monocytes # (A) 0.3 k/uL (0-1.0); Monocytes % (A) 4 %; Neutrophils % (A) 83 %; Platelet Count 194 k/uL (150-450); RBC 4.69 m/uL (3.80-5.40); RDW 14.2 % (11.5-15.5); WBC 8.5 k/uL (3.8-10.6)
[2020-06-07 21:42] LABS: INR 0.9 (<1.2); Partial Thromboplastin Time 24.6 sec (22.0-30.0); Prothrombin Time 9.6 sec (9.0-12.0)
[2020-06-07 21:47] LABS: ALT 22 U/L (4-34); AST 31 U/L (14-36); African American GFR (CKD) >90 (>60 ml/min/1.73 sqM); Albumin 4.8 g/dL (3.5-5.0); Alkaline Phosphatase 95 U/L (38-126); Anion Gap 11 mmol/L; Blood Urea Nitrogen 17 mg/dL (7-17); C Reactive Protein 9.2 mg/L (<10.0); Calcium 9.6 mg/dL (8.4-10.2); Carbon Dioxide 24 mmol/L (22-30); Chloride 104 mmol/L (98-107); Glucose 119 mg/dL (74-99); Non-African American GFR(CKD) 81 (>60 ml/min/1.73 sqM); Potassium 4.1 mmol/L (3.5-5.1); Sodium 139 mmol/L (137-145); Total Bilirubin 0.5 mg/dL (0.2-1.3); Total Protein 8.2 g/dL (6.3-8.2)
--- NOTE | 2020-06-07 21:56 | XR ---
EXAMINATION TYPE: XR hand complete RT DATE OF EXAM: 06/07/2020 COMPARISON: NONE HISTORY: Postop infection third digit TECHNIQUE: 3 views FINDINGS: Metacarpals are intact. I see no fracture nor dislocation. The middle finger is intact. The re is mild soft tissue swelling around the middle finger. The joint spaces are normal. I see no focal bone destruction. IMPRESSION: Mild soft tissue swelling. No fracture seen.
--- NOTE | 2020-06-07 21:57 | XR ---
EXAMINATION TYPE: XR KUB DATE OF EXAM: 06/07/2020 COMPARISON: NONE HISTORY: Nausea and vomiting TECHNIQUE: 2 views upright FINDINGS: There is a mild thoracolumbar dextroscoliosis. There is neural stimulator in the lower thor acic spine. There is no sign of intestinal obstruction or pneumoperitoneum. Fecal pattern is normal. There is no evidence of a mass. Lung bases are clear. There are no pathologic calcifications over the kidneys. IMPRESSION: Nonacute abdomen.
--- NOTE | 2020-06-07 21:58 | XR ---
EXAMINATION TYPE: XR chest 2V DATE OF EXAM: 06/07/2020 COMPARISON: 05/23/2019 HISTORY: Chest pain fever TECHNIQUE: FINDINGS: Heart and mediastinum are normal. Lungs are clear. Diaphragm is normal. Bony thorax appears normal. There is minor spurring in the thoracic spine. IMPRESSION: No active cardiopulmonary disease. Normal heart. No change.
[2020-06-07 22:10] LABS: Appearance,Urine Clear (Clear); Bacteria,Urine Rare /hpf; Bilirubin,Urine Negative (Negative); Blood,Urine Negative (Negative); Color,Urine Yellow; Glucose,Urine (UA) Negative (Negative); Hyaline Casts,Urine 1 /lpf (0-2); Ketones,Urine Negative (Negative); Leukocyte Esterase,Urine Small (Negative); Mucus,Urine Rare /hpf; Nitrite,Urine Negative (Negative); Protein,Urine Negative (Negative); RBC,Urine 2 /hpf (0-5); Squamous Epithelial Cell,Urine 7 /hpf (0-4); Urobilinogen,Urine <2.0 mg/dL (<2.0); WBC,Urine 9 /hpf (0-5)
[2020-06-07 22:40] LABS: Erythrocyte Sedimentation Rate 25 mm/hr (0-20)
[2020-06-07] MEDS ORDERED: VANCOMYCIN 125 MG CAPSULE PO ONE (23:15)
[2020-06-07] MEDS ORDERED: VANCOMYCIN 125 MG CAPSULE PO SCH (23:15)
[2020-06-07] MEDS ORDERED: IBUPROFEN 400 MG TAB PO PRN (23:19)
[2020-06-07] MEDS ORDERED: ONDANSETRON 4 MG/2 ML VIAL IVP PRN (23:19)
[2020-06-07] MEDS ORDERED: KETOROLAC 15 MG/ML 1 ML VIAL IVP PRN (23:19)
[2020-06-07] MEDS ORDERED: NALOXONE 0.4 MG/ML 1 ML VIAL IV PRN (23:19)
--- NOTE | 2020-06-08 00:27 | CT ---
EXAMINATION TYPE: CT abdomen pelvis w con DATE OF EXAM: 06/07/2020 COMPARISON: None HISTORY: NVD CT DLP: 968.2 mGycm Automated exposure control for dose reduction was used. CONTRAST: Performed with IV Contrast, patient injected with 100 mL of Isovue 300. Lung bases are clear. There is no pleural effusion. Heart size is normal. There is no pericardial eff usion. There is small hiatal hernia. Stomach is intact. Liver spleen pancreas gallbladder appear norm al. Bile ducts are not dilated. There is no adrenal mass. There is 6 cm cortical cyst posterior right kidney. Kidneys show satisfacto ry contrast opacification. There is no hydronephrosis. Delayed images show normal renal excretion. Ur eters are not dilated. There is no retroperitoneal adenopathy. Bladder distends smoothly. There is no inguinal hernia. There is no free fluid in the pelvis. Appendix is not definitely seen. There is no sign of thickened appendix. There is no evidence of a pelvic mass. There is thoracolumbar dextroscoliosis. There is multilevel sp ondylotic changes in the thoracolumbar spine. The bony pelvis is intact. Proximal femurs are intact. There is no lumbar compression fracture. There is no mesenteric edema. There is no ascites or free air. There is no bowel obstruction. IMPRESSION: Large right renal cortical cyst. No renal obstruction. Small hiatal hernia.
[2020-06-08] MEDS: ACETAMINOPHEN TAB 325 MG TAB PO PRN (04:32)
[2020-06-08] MEDS: SODIUM CHLORIDE 0.9% 1,000 ML IV SCH ×3 (04:34→20:35)
[2020-06-08] MEDS: LEVOTHYROXINE 88 MCG TAB PO SCH (06:03)
[2020-06-08] MEDS ORDERED: NON FORMULARY DRUG (Omeprazole [Omeprazole] 20 MG Capsule.Dr) PO SCH (07:30)
[2020-06-08] MEDS ORDERED: NAPROXEN 250 MG TAB PO SCH (07:30)
[2020-06-08] MEDS: traMADol 50 MG TAB PO PRN ×2 (08:31→14:53)
[2020-06-08] MEDS: ASPIRIN 81 MG PO SCH (08:31)
[2020-06-08] MEDS: OXYBUTYNIN CHLORIDE 5 MG TAB PO SCH ×3 (08:32→21:18)
[2020-06-08] MEDS: METOPROLOL TARTRATE 25 MG TAB PO SCH ×2 (08:32→20:36)
[2020-06-08] MEDS: VANCOMYCIN 125 MG CAPSULE PO SCH ×4 (08:33→21:18)
[2020-06-08] MEDS ORDERED: PANTOPRAZOLE 40 MG/10 ML VIAL IV SCH (09:00)
[2020-06-08] MEDS ORDERED: NON FORMULARY DRUG (Potassium Gluconate [Potassium Gluconate] 99 MG Tablet.Er) PO SCH (09:00)
[2020-06-08] MEDS ORDERED: HYDROcodone/APAP 5-325MG 1 EACH TAB PO PRN (10:30)
--- NOTE | 2020-06-08 11:06 | P.HPIM ---
History of Present Illness Present pleasant 64-year-old female came in with complaints of multiple episodes of diarrhea which has been going on for the last few days patient was started on antibiotics initially patient had antibiotic associated diarrhea patient has been on antibiotics for tenosynovitis of the right hand finger. That finger appears to be well and healed no evidence of infection at this time. Patient was on multiple antibiotics including initially doxycycline, followed by IV Rocephin followed by Keflex and completed and medication regimen couple days ago. Patient was having multiple yellowish stools. Had a fever of 102. Patient denied any cough no other source of infection was evident. Patient had multiple episodes of diarrhea yesterday patient is found to have positive C. diff. Patient was started on oral vancomycin. Patient was also having epigastric burning sensation patient is a vital hernia patient is presently on intravenous steroids which will be discontinued and patient was started on tramadol for pain patient did not tolerate well in the past patient present pain is mostly burning sensation in the epigastric area. CT of the abdomen was done which showed a right cortical renal cyst. Review of Systems REVIEW OF SYSTEMS: CONSTITUTIONAL: No fever, no malaise, no fatigue. HEENT: No recent visual problems or hearing problems. Denied any sore throat. CARDIOVASCULAR: No chest pain, orthopnea, PND, no palpitations, no syncope. PULMONARY: No shortness of breath, no cough, no hemoptysis. GASTROINTESTINAL: As mentioned in HPI NEUROLOGICAL: No headaches, no weakness, no numbness. HEMATOLOGICAL: Denies any bleeding or petechiae. GENITOURINARY: Denies any burning micturition, frequency, or urgency. MUSCULOSKELETAL/RHEUMATOLOGICAL: Denies any joint pain, swelling, or any muscle pain. ENDOCRINE: Denies any polyuria or polydipsia. The rest of the 14-point review of systems is negative. Past Medical History Past Medical History: Eye Disorder, Fibromyalgia, GERD/Reflux, Hyperlipidemia, Hypertension, Osteoarthritis (OA), Thyroid Disorder Additional Past Medical History / Comment(s): Pt recently admitted to [facility] on 05/09/20 with R middle finger post op infection with I&D. Other hx: Criciphangeal achlasia-top and bottom muscle, pt does not tolerate statins d/t leg pain, IBS, hiatal hernia, short segment Hager's esophagus, chronic low back pain with back stimulator in place with rechargeable battery, arhtritis in multiple joints, hypothyroid, overactive bladder, constipation, L eye cataract. 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 partial hysterectomy Past Anesthesia/Blood Transfusion Reactions: Previous Problems w/ Anesthesia Additional Past Anesthesia/Blood Transfusion Reaction / Comment(s): Headaches. Pt states intubate with care d/t cricopharygeal achlasia-top and bottom muscles affected. Past Psychological History: No Psychological Hx Reported Additional Psychological History / Comment(s): . Smoking Status: Never smoker Past Alcohol Use History: None Reported Past Drug Use History: None Reported - Past Family History Mother Family Medical History: Cancer, Diabetes Mellitus Additional Family Medical History / Comment(s): BLADDER AND OVARIAN CANCER AT AGE 72 Father Family Medical History: Cancer Additional Family Medical History / Comment(s): COLON AND SKIN CANCER Sister(s) Family Medical History: Coronary Artery Disease (CAD), Myocardial Infarction ([place]) Additional Family Medical History / Comment(s): Sister had 3 or 4 MIs with firt one at age 68yrs. She has coronary stents. Brother(s) Family Medical History: Cancer Additional Family Medical History / Comment(s): Brother was a smoker. He of lung cancer. Medications and Allergies Home Medications Medication Instructions Recorded Confirmed Type Levothyroxine Sodium [Synthroid] 88 mcg PO DAILY 01/28/15 06/07/20 History Oxybutynin Chloride [Ditropan] 5 mg PO TID 01/28/15 06/07/20 History traMADol HCl [Ultram] 100 mg PO Q6H PRN 01/28/15 06/07/20 History Naproxen [Naprosyn] 500 mg PO AC-BID 05/23/19 06/07/20 History Metoprolol Tartrate [Lopressor] 25 mg PO BID 05/09/20 06/07/20 History Montelukast Sodium [Singulair] 10 mg PO HS 05/09/20 06/07/20 History Omeprazole 20 mg PO AC-BID 05/09/20 06/07/20 History Potassium Gluconate 99 mg PO DAILY 05/09/20 06/07/20 History Aspirin EC [Ecotrin Low Dose] 81 mg PO DAILY 05/16/20 06/07/20 History Allergies Allergy/AdvReac Type Severity Reaction Status Date / Time Penicillins Allergy Rash/Hives Verified 06/07/20 21:21 [id number] Reductase AdvReac leg pain Verified 06/07/20 21:21 Inhibitor Physical Exam Vitals: Vital Signs Temp Pulse Pulse Resp BP BP Pulse Ox 06/08/20 08:27 98.8 F 82 16 137/62 96 06/08/20 06:06 98.9 F 06/08/20 04:30 99.4 F 06/08/20 00:50 99.1 F 91 16 140/79 95 06/08/20 00:22 99.3 F 72 18 134/81 96 06/07/20 23:00 99.2 F 126/84 99 06/07/20 22:14 99.8 F H 06/07/20 20:10 102.5 F H 111 H 22 166/80 97 Intake and Output 06/07/20 06/08/20 06/08/20 22:59 06:59 14:59 Intake Total 780 Balance 780 Intake: Intake, IV Titration 780 Amount Sodium Chloride 0.9% 1, 780 000 ml @ 130 mls/hr IV . Q7H42M [facility] Rx#:[id number] Other: Voiding Method Toilet Toilet # Voids 2 # Bowel Movements 1 Weight 76.204 kg 76.204 kg PHYSICAL EXAMINATION: GENERAL: The patient is alert and oriented x3, not in any acute distress. Well developed, well nourished. HEENT: Pupils are round and equally reacting to light. EOMI. No scleral icterus. No conjunctival pallor. Normocephalic, atraumatic. No pharyngeal erythema. No thyromegaly. CARDIOVASCULAR: S1 and S2 present. No murmurs, rubs, or gallops. PULMONARY: Chest is clear to auscultation, no wheezing or crackles. ABDOMEN: Soft, nontender, nondistended, normoactive bowel sounds. No palpable organomegaly. MUSCULOSKELETAL: No joint swelling or deformity. EXTREMITIES: No cyanosis, clubbing, or pedal edema. NEUROLOGICAL: Gross neurological examination did not reveal any focal deficits. SKIN: No rashes. Results CBC & Chem 7: 06/07/20 21:04 06/07/20 21:04 Labs: Abnormal Lab Results - Last 24 Hours (Table) 06/07/20 06/07/20 06/07/20 Range/Units 21:04 21:04 21:04 Lymphocytes # 0.9 L (1.0-4.8) k/uL ESR 25 H (0-20) mm/hr Glucose 119 H (74-99) mg/dL Ur Leukocyte Esterase (Negative) Urine WBC (0-5) /hpf Ur Squamous Epith Cells (0-4) /hpf Urine Bacteria (None) /hpf Urine Mucus (None) /hpf Stool Occult Blood (Negative) C. difficile (EIA) Intrp Positive A (Negative) 06/07/20 06/07/20 Range/Units 21:04 21:30 Lymphocytes # (1.0-4.8) k/uL ESR (0-20) mm/hr Glucose (74-99) mg/dL Ur Leukocyte Esterase Small H (Negative) Urine WBC 9 H (0-5) /hpf Ur Squamous Epith Cells 7 H (0-4) /hpf Urine Bacteria Rare H (None) /hpf Urine Mucus Rare H (None) /hpf Stool Occult Blood Positive H (Negative) C. difficile (EIA) Intrp (Negative) Thrombosis Risk Factor Assmnt - Choose All That Apply Any of the Below Risk Factors Present?: Yes Each Factor Represents 1 point: Obesity (BMI >25) Other Risk Factors: Yes Each Risk Factor Represents 2 Points: Age 61-74 years Thrombosis Risk Factor Assessment Total Risk Factor Score: 3 Thrombosis Risk Factor Assessment Level: Moderate Risk Assessment and Plan Plan: -Fever, diarrhea: Secondary to C. diff colitis. Patient was started on oral vancomycin other and medics were discontinued and patient will not require any antibiotics for the tenosynovitis which appeared to be completely healed at this time. Patient will continued on IV fluids -peptic ulcer disease or gastric reflux disease other deficits will discuss reviewed patient was started on tramadol and patient will be continued on Tylenol and unfortunately even though not advisable in C. diff colitis I have to start her on proton pump inhibitor. -Hyperlipidemia hypertension #Hypothyroidism For above-mentioned medical problems patient will be unit on home medications. -DVT prophylaxis early ambulation
[2020-06-08] MEDS: LACTOBACILLUS ACIDOPH & BULGAR 1 EACH PACKET PO SCH ×2 (11:30→20:36)
[2020-06-08] MEDS: MORPHINE SULFATE 4 MG/ML SYRINGE IV PRN ×2 (11:34→20:36)
--- NOTE | 2020-06-08 11:49 | P.CNOR ---
<Jorge Luis Erickson - Last Filed: 06/08/20 11:48> History of Present Illness - HPI Consult date: 06/08/20 History of present illness: This patient is a 70-year-old female that presented to [facility] emergency department yesterday with complaints of diarrhea, fevers, chills. This patient is status-post right middle trigger finger release on 04/28/[address] Martell. The patient was direct admitted to the hospital on 05/09/20 with acute flexor tenosynovitis of the right middle finger, a bedside I&D was performed and the patient was discharged home on doxycycline on 05/13/2020. Patient was readmitted on 05/16/20 for increased pain and swelling. Patient was discharged on 05/19/[address] Grider, and a midline catheter was placed and the patient was discharged with IV antibiotics. The patient subsequently had this midline catheter removed, and the patient was transitioned to oral Keflex. Patient states she has been experiencing diarrhea for about a month, although began to feel ill yesterday afternoon. The patient states she called Dr. Martell yesterday as she began to experience fevers and chills along with diarrhea. Patient states her fever was about 102.[address] Martell recommended the patient present to [facility] emergency department for evaluation. Patient tested positive for C. diff in the emergency department, and she was subsequently started on IV Flagyl and oral vancomycin. Patient was admitted under the care of internal medicine with a consult placed to orthopedics for evaluation of her right middle finger. At the time of my exam, the patient states she is not experiencing any pain in her right middle finger. She states her finger overall feels well and she has no complaints in regards to her right middle finger. She is complaining of isolated abdominal pain at this time. She has no additional complaints in regards to her right middle finger. Vital signs currently stable. Patient is currently afebrile. Past Medical History Past Medical History: Eye Disorder, Fibromyalgia, GERD/Reflux, Hyperlipidemia, Hypertension, Osteoarthritis (OA), Thyroid Disorder Additional Past Medical History / Comment(s): Pt recently admitted to [facility] on 05/09/20 with R middle finger post op infection with I&D. Other hx: C riciphangeal achlasia-top and bottom muscle, pt does not tolerate statins d/t leg pain, IBS, hiatal hernia, short segment Hager's esophagus, chronic low back pain with back stimulator in place with rechargeable battery, arhtritis in multiple joints, hypothyroid, overactive bladder, constipation, L eye cataract. History of Any Multi-Drug Resistant Organisms: None Reported Past Surgical History: Appendectomy, Hysterectomy, Tonsillectomy Additional Past Surgical History / Comment(s): 04/28/20 R hand 3rd finger trigger release, 05/09/20 I&D R middle finger, zuleyma carpel tunnel release, battery pack in back- implanted medical technologist generalist- IPG with lead, several egd's/dilations, colonoscopies, TERRANCE RS0 in 1977 for a benign mass. partial hysterectomy Past Anesthesia/Blood Transfusion Reactions: Previous Problems w/ Anesthesia Additional Past Anesthesia/Blood Transfusion Reaction / Comm: Headaches. Pt states intubate with care d/t cricopharygeal achlasia-top and bottom muscles affected. Past Psychological History: No Psychological Hx Reported Additional Psychological History / Comment(s): . Smoking Status: Never smoker Past Alcohol Use History: None Reported Past Drug Use History: None Reported - Past Family History Mother Family Medical History: Cancer, Diabetes Mellitus Additional Family Medical History / Comment(s): BLADDER AND OVARIAN CANCER AT AGE 72 Father Family Medical History: Cancer Additional Family Medical History / Comment(s): COLON AND SKIN CANCER Sister(s) Family Medical History: Coronary Artery Disease (CAD), Myocardial Infarction ([place]) Additional Family Medical History / Comment(s): Sister had 3 or 4 MIs with firt one at age 68yrs. She has coronary stents. Brother(s) Family Medical History: Cancer Additional Family Medical History / Comment(s): Brother was a smoker. He of lung cancer. Medications and Allergies Home Medications Medication Instructions Recorded Confirmed Type Levothyroxine Sodium [Synthroid] 88 mcg PO DAILY 01/28/15 06/07/20 History Oxybutynin Chloride [Ditropan] 5 mg PO TID 01/28/15 06/07/20 History traMADol HCl [Ultram] 100 mg PO Q6H PRN 01/28/15 06/07/20 History Naproxen [Naprosyn] 500 mg PO AC-BID 05/23/19 06/07/20 History Metoprolol Tartrate [Lopressor] 25 mg PO BID 05/09/20 06/07/20 History Montelukast Sodium [Singulair] 10 mg PO HS 05/09/20 06/07/20 History Omeprazole 20 mg PO AC-BID 05/09/20 06/07/20 History Potassium Gluconate 99 mg PO DAILY 05/09/20 06/07/20 History Aspirin EC [Ecotrin Low Dose] 81 mg PO DAILY 05/16/20 06/07/20 History Allergies Allergy/AdvReac Type Severity Reaction Status Date / Time Penicillins Allergy Rash/Hives Verified 06/07/20 21:21 Vqiyqja-Yqf-Dqu Reductase AdvReac leg pain Verified 06/07/20 21: Inhibitor Physical Examination On examination, the patient is sitting up in bed in no apparent distress. She is alert and oriented 3. A focused examination of her right hand was conducted. On inspection of the right hand there is a healed incision of the volar surface at the base of the right middle finger. There is no surrounding erythema, warmth, fluctuance. There is no pain on palpation of the right middle finger. There is no pain with passive range of motion of the right middle finger. Patient is able to actively flex and extend the finger without issue or pain. Sensation is intact to light touch of both sides of the finger. The finger is warm and well-perfused with brisk capillary refill distally. Results Right-hand x-ray 06/07/2020: No acute fractures or abnormalities. - Labs Labs: Abnormal Lab Results - Last 24 Hours (Table) 06/07/20 06/07/20 06/07/20 Range/Units 21:04 21:04 21:04 Lymphocytes # 0.9 L (1.0-4.8) k/uL ESR 25 H (0-20) mm/hr Glucose 119 H (74-99) mg/dL Ur Leukocyte Esterase (Negative) Urine WBC (0-5) /hpf Ur Squamous Epith Cells (0-4) /hpf Urine Bacteria (None) /hpf Urine Mucus (None) /hpf Stool Occult Blood (Negative) C. difficile (EIA) Intrp Positive A (Negative) 06/07/20 06/07/20 Range/Units 21:04 21:30 Lymphocytes # (1.0-4.8) k/uL ESR (0-20) mm/hr Glucose (74-99) mg/dL Ur Leukocyte Esterase Small H (Negative) Urine WBC 9 H (0-5) /hpf Ur Squamous Epith Cells 7 H (0-4) /hpf Urine Bacteria Rare H (None) /hpf Urine Mucus Rare H (None) /hpf Stool Occult Blood Positive H (Negative) C. difficile (EIA) Intrp (Negative) H & H 06/07/20 Range/Units 21:04 Hgb 12.9 (11.4-16.0) gm/dL Hct 40.3 (34.0-46.0) % Coagulation 06/07/20 Range/Units 21:04 INR 0.9 (<1.2) Result Diagrams: 06/07/20 21:04 06/07/20 21:04 Assessment and Plan Assessment: C. diff colitis Status-post flexor tenosynovitis right middle finger, resolved Status-post right middle trigger finger release 04/28/20 Plan: - Clinical findings were discussed with the patient. The patient was discussed with Dr. Martell. There are no signs of active infection of the right middle finger today on exam. We have no plans for surgical intervention. - Treatment of C. diff colitis per admitting team. - We will follow patient peripherally and make recommendations if needed. <Shant Martell - Last Filed: 06/08/20 13:11> Results - Labs Labs: Abnormal Lab Results - Last 24 Hours (Table) 06/07/20 06/07/20 06/07/20 Range/Units 21:04 21:04 21:04 Lymphocytes # 0.9 L (1.0-4.8) k/uL ESR 25 H (0-20) mm/hr Glucose 119 H (74-99) mg/dL Ur Leukocyte Esterase (Negative) Urine WBC (0-5) /hpf Ur Squamous Epith Cells (0-4) /hpf Urine Bacteria (None) /hpf Urine Mucus (None) /hpf Stool Occult Blood (Negative) C. difficile (EIA) Intrp Positive A (Negative) 06/07/20 06/07/20 Range/Units 21:04 21:30 Lymphocytes # (1.0-4.8) k/uL ESR (0-20) mm/hr Glucose (74-99) mg/dL Ur Leukocyte Esterase Small H (Negative) Urine WBC 9 H (0-5) /hpf Ur Squamous Epith Cells 7 H (0-4) /hpf Urine Bacteria Rare H (None) /hpf Urine Mucus Rare H (None) /hpf Stool Occult Blood Positive H (Negative) C. difficile (EIA) Intrp (Negative) H & H 06/07/20 Range/Units 21:04 Hgb 12.9 (11.4-16.0) gm/dL Hct 40.3 (34.0-46.0) % Coagulation 06/07/20 Range/Units 21:04 INR 0.9 (<1.2) Result Diagrams: 06/07/20 21:04 06/07/20 21:04 Assessment and Plan Plan: Case was discussed with RADHIKA Erickson. Reviewed and agree with above (amendments/corrections noted below). The patient was subsequently seen and examined by me as well. S: Mrs. Zuniga is well known to me from previous surgical treatment for a right middle trigger finger with subsequent I&D of a postop infection. She has had diarrhea throughout her antibiotic treatments. She states that she was feeling quite poorly prior to admission, but has been gradually improving. She is still experiencing diarrhea. She feels that the hand is doing quite well and continues to improve. She has been performing regular stretching/ROM exercises as instructed. O: Sitting up in bed; appears fairly comfortable and not in acute distress. No erythema or edema in the right hand. Mild residual hyperemia and edema gorge und the incision. The edema in the middle finger is minimal. No tenderness along the flexor sheath. No pain with mid-range active digital motion. Mild residual PIP and MCP contractures as well as mild intrinsic tightness. A: C. difficile colitis status post IV antibiotic treatment Right middle finger postop wound infection with flexor tenosynovitis resolved Status post right middle finger trigger release P: I reviewed the clinical findings in detail with the patient. The finger looks fantastic. No sign of active infection. Her motion is improving as well. No further treatment required for the hand. I encouraged her to continue with active and passive range of motion exercises (demonstrated today). We will sign off at this time please contact us with any questions or concerns. The patient does not require further follow-up visits for her hand. However, she was encouraged to contact the office with any recurrent or concerning symptoms. Questions were invited and answered; the patient expressed understanding and agreement with the plan as outlined above. Shant Martell D.O. [facility]
[2020-06-08] MEDS: CHOLESTYRAMINE (WITH SUGAR) 4 GM PACKET PO SCH ×2 (14:44→17:32)
[2020-06-08] MEDS: MONTELUKAST 10 MG TAB PO SCH (20:35)
--- NOTE | 2020-06-08 21:19 | P.CONS ---
History of Present Illness - Reason for Consult Consult date: 06/08/20 Tenosynovitis/C. diff Requesting physician: Krysten Salas - Chief Complaint Fever 1 day and diarrhea times few days - History of Present Illness Patient is 70-year-old female with a past medical history significant for right middle finger release with subsequent postoperative wound infection with MSSA patient initially failed outpatient oral doxycycline therapy subsequently treated with IV Rocephin with good response afterwards she was switched over to oral Keflex which apparently the patient has completed about 2 days ago patient presented to [facility] ER yesterday with chief complaints of fever that started that evening along with some chills and she has been committed no diarrhea with antibiotic going on for last few days patient mentioned multiple episodes of loose stools with some mucus but no blood that have some crampy lower abdominal pain intensity about 5 or 10 radiation, the patient felt nauseated but no vomiting she did have some swelling of the right forearm site of previous infection but no open wound or any drainage patient was evaluated by the physician on arrival to the ER, patient did have a fever of 102F, patient did have normal white count and normal CRP he urine was negative stool for C. diff came back positive for the patient was started on vancomycin/and infection disease was consulted for further management of antibiotic therapy Review of Systems Positive point has been mentioned in the HPI rest of the systems are negative Past Medical History Past Medical History: Eye Disorder, Fibromyalgia, GERD/Reflux, Hyperlipidemia, Hypertension, Osteoarthritis (OA), Thyroid Disorder Additional Past Medical History / Comment(s): Pt recently admitted to [facility] on 05/09/20 with R middle finger post op infection with I&D. Other hx: Criciphangeal achlasia-top and bottom muscle, pt does not tolerate statins d/t leg pain, IBS, hiatal hernia, short segment Hager's esophagus, chronic low back pain with back stimulator in place with rechargeable battery, arhtritis in multiple joints, hypothyroid, overactive bladder, constipation, L eye cataract. History of Any Multi-Drug Resistant Organisms: None Reported Past Surgical History: Appendectomy, Hysterectomy, Tonsillectomy Additional Past Surgical History / Comment(s): 04/28/20 R hand 3rd finger trigger release, 05/09/20 I&D R middle finger, zuleyma carpel tunnel release, battery pack in back- implanted medical payment poster- IPG with lead, several egd's/dilations, colonoscopies, TERRANCE RS0 in 1977 for a benign mass. partial hysterectomy Past Anesthesia/Blood Transfusion Reactions: Previous Problems w/ Anesthesia Additional Past Anesthesia/Blood Transfusion Reaction / Comm: Headaches. Pt states intubate with care d/t cricopharygeal achlasia-top and bottom muscles affected. Past Psychological History: No Psychological Hx Reported Additional Psychological History / Comment(s): . Smoking Status: Never smoker Past Alcohol Use History: None Reported Past Drug Use History: None Reported - Past Family History Mother Family Medical History: Cancer, Diabetes Mellitus Additional Family Medical History / Comment(s): BLADDER AND OVARIAN CANCER AT AGE 72 Father Family Medical History: Cancer Additional Family Medical History / Comment(s): COLON AND SKIN CANCER Sister(s) Family Medical History: Coronary Artery Disease (CAD), Myocardial Infarction (AL) Additional Family Medical History / Comment(s): Sister had 3 or 4 MIs with firt one at age 68yrs. She has coronary stents. Brother(s) Family Medical History: Cancer Additional Family Medical History / Comment(s): Brother was a smoker. He of lung cancer. Medications and Allergies Home Medications Medication Instructions Recorded Confirmed Type Levothyroxine Sodium [Synthroid] 88 mcg PO DAILY 01/28/15 06/07/20 History Oxybutynin Chloride [Ditropan] 5 mg PO TID 01/28/15 06/07/20 History traMADol HCl [Ultram] 100 mg PO Q6H PRN 01/28/15 06/07/20 History Naproxen [Naprosyn] 500 mg PO AC-BID 05/23/19 06/07/20 History Metoprolol Tartrate [Lopressor] 25 mg PO BID 05/09/20 06/07/20 History Montelukast Sodium [Singulair] 10 mg PO HS 05/09/20 06/07/20 History Omeprazole 20 mg PO AC-BID 05/09/20 06/07/20 History Potassium Gluconate 99 mg PO DAILY 05/09/20 06/07/20 History Aspirin EC [Ecotrin Low Dose] 81 mg PO DAILY 05/16/20 06/07/20 History Allergies Allergy/AdvReac Type Severity Reaction Status Date / Time Penicillins Allergy Rash/Hives Verified 06/07/20 21:21 [id number]-Ybx-[id number] Reductase AdvReac leg pain Verified 06/07/20 21:21 Inhibitor Physical Exam Vitals: Vital Signs Temp Pulse Pulse Resp BP BP Pulse Ox 06/08/20 08:27 98.8 F 82 16 137/62 96 06/08/20 06:06 98.9 F 06/08/20 04:30 99.4 F 06/08/20 00:50 99.1 F 91 16 140/79 95 06/08/20 00:22 99.3 F 72 18 134/81 96 06/07/20 23:00 99.2 F 126/84 99 06/07/20 22:14 99.8 F H 06/07/20 20:10 102.5 F H 111 H 22 166/80 97 Intake and Output 06/07/20 06/08/20 06/08/20 22:59 06:59 14:59 Intake Total 780 Balance 780 Intake: Intake, IV Titration 780 Amount Sodium Chloride 0.9% 1, 780 000 ml @ 130 mls/hr IV . Q7H42M [facility] Rx#:[id number] Other: Voiding Method Toilet Toilet # Voids 2 # Bowel Movements 1 Weight 76.204 kg 76.204 kg GENERAL DESCRIPTION: An elderly female lying in bed, no distress. No tachypnea or accessory muscle of respiration use. HEENT: Shows Pallor , no scleral icterus. Oral mucous membrane is dry. No pharyngeal erythema or thrush NECK: Trachea central, no thyromegaly. LUNGS: Unlabored breathing. Clear to auscultation anteriorly. No wheeze or crackle. HEART: S1, S2, regular rate and rhythm. No loud murmur ABDOMEN: Soft, no tenderness , guarding or rigidity, no organomegaly EXTREMITIES: Right hand palmar aspect previous site of abscess and had minimal swelling and redness no drainage was noticed. SKIN: No rash, no masses palpable. NEUROLOGICAL: The patient is awake, alert, oriented x3, mood and affect normal. Results CBC & Chem 7: 06/07/20 21:04 06/07/20 21:04 Labs: Abnormal Lab Results - Last 24 Hours (Table) 06/07/20 06/07/20 06/07/20 Range/Units 21:04 21:04 21:04 Lymphocytes # 0.9 L (1.0-4.8) k/uL ESR 25 H (0-20) mm/hr Glucose 119 H (74-99) mg/dL Ur Leukocyte Esterase (Negative) Urine WBC (0-5) /hpf Ur Squamous Epith Cells (0-4) /hpf Urine Bacteria (None) /hpf Urine Mucus (None) /hpf Stool Occult Blood (Negative) C. difficile (EIA) Intrp Positive A (Negative) 06/07/20 06/07/20 Range/Units 21:04 21:30 Lymphocytes # (1.0-4.8) k/uL ESR (0-20) mm/hr Glucose (74-99) mg/dL Ur Leukocyte Esterase Small H (Negative) Urine WBC 9 H (0-5) /hpf Ur Squamous Epith Cells 7 H (0-4) /hpf Urine Bacteria Rare H (None) /hpf Urine Mucus Rare H (None) /hpf Stool Occult Blood Positive H (Negative) C. difficile (EIA) Intrp (Negative) Assessment and Plan Assessment: 1-patient presented to hospital with fever and diarrhea in this patient with recent right hand abscess was right middle finger release culture were positive for MSSA and has been treated with Rocephin and just completed course of oral Keflex likely representing a symptomatic C. diff colitis, patient did have minimal erythema at the previous surgical site infection however the patient fever responded to the oral vancomycin more likely pointing to is the source of infection (1) C. difficile colitis Current Visit: Yes Status: Acute Code(s): A04.72 - ENTEROCOLITIS D/T CLOSTRIDIUM DIFFICILE, NOT SPCF RECUR SNOMED Code(s): 024558274 Plan: 1-vancomycin 125 mg by mouth every 6 hours and Questran for symptomatic relief 2-we will hold on any further antibiotic therapy for possible tenosynovitis and watch right hand closely We will follow on clinical condition and cultures to further adjust medication if needed Thank you for this consultation will follow this patient with you Time with Patient: Greater than 30
[2020-06-09] MEDS: MORPHINE SULFATE 4 MG/ML SYRINGE IV PRN ×3 (03:55→20:36)
[2020-06-09] MEDS: SODIUM CHLORIDE 0.9% 1,000 ML IV SCH ×3 (05:35→20:34)
[2020-06-09] MEDS: LEVOTHYROXINE 88 MCG TAB PO SCH (05:35)
[2020-06-09] MEDS: traMADol 50 MG TAB PO PRN (05:38)
[2020-06-09 07:05] LABS: African American GFR (CKD) >90 (>60 ml/min/1.73 sqM); Anion Gap 4 mmol/L; Blood Urea Nitrogen 10 mg/dL (7-17); Calcium 8.3 mg/dL (8.4-10.2); Carbon Dioxide 26 mmol/L (22-30); Chloride 108 mmol/L (98-107); Glucose 96 mg/dL (74-99); Non-African American GFR(CKD) 89 (>60 ml/min/1.73 sqM); Potassium 4.1 mmol/L (3.5-5.1); Sodium 138 mmol/L (137-145)
--- NOTE | 2020-06-09 08:10 | P.PN ---
Subjective Principal diagnosis: Chronic diarrhea. The patient is a 62-year-old white female who's had complicated tendon repair of her right hand and is now because of infection had C. difficile. The patient continues to have multiple episodes of diarrhea and is still not tolerating by mouth diet appropriately and no fever or chills. Weakness is otherwise noted. Objective - Vital Signs Vital signs: Vital Signs Temp 98.8 F 06/09/20 02:49 Pulse 72 06/09/20 02:49 Resp 18 06/09/20 02:49 BP 132/70 06/09/20 02:49 Pulse Ox 98 06/09/20 02:49 Intake & Output 06/08/20 06/09/20 06/09/20 18:59 06:59 18:59 Other: Voiding Method Toilet Toilet # Bowel Movements 5 3 - Constitutional General appearance: Present: average body habitus - Neck Neck: Present: lymphadenopathy - Respiratory Respiratory: bilateral: CTA - Cardiovascular Rhythm: regular Heart sounds: normal: S1, S2 Abnormal Heart Sounds: Absent: S3 Gallop - Gastrointestinal General gastrointestinal: Present: soft. Absent: tenderness - Psychiatric Psychiatric: Present: A&O x's 3. Absent: appropriate affect - Labs CBC & Chem 7: 06/07/20 21:04 06/09/20 05:35 Labs: Abnormal Lab Results - Last 24 Hours (Table) 06/09/20 Range/Units 05:35 Chloride 108 H (98-107) mmol/L Calcium 8.3 L (8.4-10.2) mg/dL Microbiology - Last 24 Hours (Table) 06/07/20 21:04 Blood Culture - Preliminary Blood No Growth after 24 hours Assessment and Plan (1) C. difficile colitis Current Visit: Yes Status: Acute Code(s): A04.72 - ENTEROCOLITIS D/T CLOSTRIDIUM DIFFICILE, NOT SPCF RECUR SNOMED Code(s): 598767864 Plan: Due to continued symptoms, we'll switch to inpatient. Continue IV hydration with vancomycin oral. Continue Questran. Hopefully discharge in next 24-48 hours
[2020-06-09] MEDS: METOPROLOL TARTRATE 25 MG TAB PO SCH ×2 (08:18→20:35)
[2020-06-09] MEDS: VANCOMYCIN 125 MG CAPSULE PO SCH ×4 (08:18→20:42)
[2020-06-09] MEDS: ASPIRIN 81 MG PO SCH (08:18)
[2020-06-09] MEDS: OXYBUTYNIN CHLORIDE 5 MG TAB PO SCH ×3 (08:18→20:42)
[2020-06-09] MEDS: PANTOPRAZOLE 40 MG TABLET PO SCH (08:19)
[2020-06-09] MEDS: LACTOBACILLUS ACIDOPH & BULGAR 1 EACH PACKET PO SCH ×2 (08:19→20:36)
[2020-06-09] MEDS: CHOLESTYRAMINE (WITH SUGAR) 4 GM PACKET PO SCH ×3 (10:20→17:03)
--- NOTE | 2020-06-09 13:38 | PN ---
PROGRESS NOTE DATE OF SERVICE: 06/09/2020. REASON FOR FOLLOW UP: C difficile colitis. INTERVAL HISTORY: The patient is currently afebrile. The patient has been breathing slightly better, however, she did mention she did have significant diarrhea last night and in the early hours this morning which has slowed down slightly. The patient denies having any chest pain or cough, pneumonia, abdominal pain, no vomiting. PHYSICAL EXAMINATION: Blood pressure 159/74 with a pulse of 77. Temperature 98.4. She is 97% on room air. General description is an elderly female lying in bed in no distress. Respiratory system: Unlabored breathing, clear to auscultation anteriorly. Heart S1, S2. Regular rate and rhythm. Abdomen soft, no tenderness. LABS: BUN of 10, creatinine 0.70. Blood culture has been negative. DIAGNOSTIC IMPRESSION AND PLAN: Patient admitted to the hospital with fever, significant diarrhea. The patient on antibiotic for her right hand tenosynovitis/ MSSA with symptomatic C difficile colitis. The patient is currently covered on oral vancomycin and Questran to continue and advised to increase Probiotic and yogurt intake. Continue supportive care. MMODL / IJN: [id number] / ARTURO
[2020-06-09] MEDS: MONTELUKAST 10 MG TAB PO SCH (20:36)
[2020-06-09] MEDS: ACETAMINOPHEN TAB 325 MG TAB PO PRN (20:39)
[2020-06-10] MEDS: MORPHINE SULFATE 4 MG/ML SYRINGE IV PRN ×2 (00:27→06:02)
[2020-06-10] MEDS: LEVOTHYROXINE 88 MCG TAB PO SCH (06:02)
[2020-06-10] MEDS: SODIUM CHLORIDE 0.9% 1,000 ML IV SCH ×2 (06:02→11:53)
[2020-06-10] MEDS: METOPROLOL TARTRATE 25 MG TAB PO SCH ×2 (08:34→21:48)
[2020-06-10] MEDS: ASPIRIN 81 MG PO SCH (08:34)
[2020-06-10] MEDS: PANTOPRAZOLE 40 MG TABLET PO SCH (08:35)
[2020-06-10] MEDS: VANCOMYCIN 125 MG CAPSULE PO SCH ×4 (08:35→21:48)
[2020-06-10] MEDS: OXYBUTYNIN CHLORIDE 5 MG TAB PO SCH ×3 (08:35→21:48)
[2020-06-10] MEDS: LACTOBACILLUS ACIDOPH & BULGAR 1 EACH PACKET PO SCH ×2 (08:35→21:50)
--- NOTE | 2020-06-10 08:37 | P.PN ---
Subjective Principal diagnosis: Chronic diarrhea. The patient is a 62-year-old white female who's had complicated tendon repair of her right hand and is now because of infection had C. difficile. The patient continues to have multiple episodes of diarrhea and is still not tolerating by mouth diet appropriately and no fever or chills. Weakness is otherwise noted. The patient's diarrhea is lessening with oral vancomycin. However, blood pr essure has been elevated. The patient states no overt chest pressure. Objective - Vital Signs Vital signs: Vital Signs Temp 98.5 F 06/10/20 08:02 Pulse 77 06/10/20 08:02 Resp 14 06/10/20 08:02 BP 185/89 06/10/20 08:02 Pulse Ox 95 06/10/20 03:00 Intake & Output 06/09/20 06/10/20 06/10/20 18:59 06:59 18:59 Intake Total 1040 Balance 1040 Intake: Intake, IV Titration 1040 Amount Sodium Chloride 0.9% 1, 1040 000 ml @ 130 mls/hr IV . Q7H42M [facility] Rx#:[id number] Other: Voiding Method Toilet # Bowel Movements 2 - Constitutional General appearance: Present: average body habitus - EENT Eyes: Absent: abnormal pupil - Neck Neck: Absent: lymphadenopathy Thyroid: bilateral: normal size - Respiratory Respiratory: bilateral: CTA - Cardiovascular Rhythm: regular Heart sounds: normal: S1, S2 Abnormal Heart Sounds: Absent: S3 Gallop - Gastrointestinal General gastrointestinal: Present: soft. Absent: tenderness - Psychiatric Psychiatric: Present: A&O x's 3. Absent: appropriate affect - Labs CBC & Chem 7: 06/07/20 21:04 06/09/20 05:35 Labs: Microbiology - Last 24 Hours (Table) 06/07/20 21:04 Blood Culture - Preliminary Blood No Growth after 48 hours Assessment and Plan (1) C. difficile colitis Current Visit: Yes Status: Acute Code(s): A04.72 - ENTEROCOLITIS D/T CLOSTRIDIUM DIFFICILE, NOT SPCF RECUR SNOMED Code(s): 366463492 Plan: Due to continued symptoms, we'll switch to inpatient. Continue IV hydration with vancomycin oral. Continue Questran. Hopefully discharge in next 24-48 hours. Otherwise, add amlodipine 5 mg daily. Encourage by mouth intake IV to KVO. Time with Patient: Less than 30
[2020-06-10] MEDS: amLODIPine 5 MG TAB PO SCH (10:07)
[2020-06-10] MEDS: CHOLESTYRAMINE (WITH SUGAR) 4 GM PACKET PO SCH ×3 (10:07→17:19)
[2020-06-10] MEDS ORDERED: SODIUM CHLORIDE 0.9% 500 ML 500 ML IV SCH (12:00)
--- NOTE | 2020-06-10 15:31 | PN ---
PROGRESS NOTE DATE OF SERVICE: 06/10/2020 REASON FOR FOLLOWUP: C difficile colitis. INTERVAL HISTORY: Patient is currently afebrile. The patient is breathing comfortably. Patient denies having any chest pain or shortness of breath or cough. Her diarrhea has improved. Some discomfort abdominal but no vomiting. PHYSICAL EXAMINATION: Blood pressure 185/89 with a pulse of 77, temperature 98.5, she is 95% on room air. General description is an elderly female up in the bed in no distress. RESPIRATORY SYSTEM: Unlabored breathing clear to auscultation anteriorly. HEART: S1, S2. Regular rate and rhythm. ABDOMEN: Soft no tenderness. LABS: Blood culture negative. DIAGNOSTIC IMPRESSION AND PLAN: Patient with C difficile colitis slowly clinically responding to oral vancomycin, question to continue along with Lactinex and monitor clinical course closely. Continue supportive care. MMODL / IJN: [id number] /
[2020-06-10] MEDS: traMADol 50 MG TAB PO PRN ×2 (17:07→21:48)
[2020-06-10] MEDS: MONTELUKAST 10 MG TAB PO SCH (21:48)
[2020-06-11] MEDS: traMADol 50 MG TAB PO PRN (06:23)
[2020-06-11] MEDS: LEVOTHYROXINE 88 MCG TAB PO SCH (06:23)
--- NOTE | 2020-06-11 07:44 | P.DS ---
Providers Date of admission: 06/09/20 08:01 Attending physician: Preet Graham Consults: 06/07/20 23:19 Consult Physician Stat Consulting Provider: Shant Martell Consult Reason/Comments: tenosynovitis R middle finger Do you want consulting provider notified?: Yes Consult Physician Stat Consulting Provider: Keith Grider Consult Reason/Comments: tenosynovitis, cdiff Do you want consulting provider notified?: Yes Primary care physician: Preet Graham - Discharge Diagnosis(es) (1) C. difficile colitis Current Visit: Yes Status: Acute Hospital Course: The patient was essentially 70-year-old female admitted for Clostridium distal colitis. The patient was stabilized with appropriate antibiotic treatment but had to states several days secondary to dehydration and tolerance of diet. The patient is now not having significant diarrhea and will follow-up with me in about a week. Patient Condition at Discharge: Stable Plan - Discharge Summary New Discharge Prescriptions: New RX: Lactobacillus Acidoph & Bulgar [Lactinex] 1 each PO BID #60 packet RX: amLODIPine [Norvasc] 5 mg PO DAILY #30 tab RX: Pantoprazole [Protonix] 40 mg PO DAILY #30 tablet.dr RX: Cholestyramine (with Sugar) [Questran Packet] 4 gm PO TID BETWEEN MEALS PRN #21 packet PRN Reason: Diarrhea RX: Vancomycin 125 mg PO QID #28 capsule Continue RX: traMADol HCl [Ultram] 100 mg PO Q6H PRN PRN Reason: Pain RX: Oxybutynin Chloride [Ditropan] 5 mg PO TID RX: Levothyroxine Sodium [Synthroid] 88 mcg PO DAILY RX: Naproxen [Naprosyn] 500 mg PO AC-BID RX: Potassium Gluconate 99 mg PO DAILY RX: Montelukast Sodium [Singulair] 10 mg PO HS RX: Metoprolol Tartrate [Lopressor] 25 mg PO BID RX: Omeprazole 20 mg PO AC-BID RX: Aspirin EC [Ecotrin Low Dose] 81 mg PO DAILY Discharge Medication List RX: Levothyroxine Sodium [Synthroid] 88 mcg PO DAILY 01/28/15 [History] RX: Oxybutynin Chloride [Ditropan] 5 mg PO TID 01/28/15 [History] RX: traMADol HCl [Ultram] 100 mg PO Q6H PRN 01/28/15 [History] RX: Naproxen [Naprosyn] 500 mg PO AC-BID 05/23/19 [History] RX: Metoprolol Tartrate [Lopressor] 25 mg PO BID 05/09/20 [History] RX: Montelukast Sodium [Singulair] 10 mg PO HS 05/09/20 [History] RX: Omeprazole 20 mg PO AC-BID 05/09/20 [History] RX: Potassium Gluconate 99 mg PO DAILY 05/09/20 [History] RX: Aspirin EC [Ecotrin Low Dose] 81 mg PO DAILY 05/16/20 [History] RX: Cholestyramine (with Sugar) [Questran Packet] 4 gm PO TID BETWEEN MEALS PRN #21 packet 06/11/20 [Rx] RX: Lactobacillus Acidoph & Bulgar [Lactinex] 1 each PO BID #60 packet 06/11/20 [Rx] RX: Pantoprazole [Protonix] 40 mg PO DAILY #30 tablet. 06/11/20 [Rx] RX: Vancomycin 125 mg PO QID #28 capsule 06/11/20 [Rx] RX: amLODIPine [Norvasc] 5 mg PO DAILY #30 tab 06/11/20 [Rx] Follow up Appointment(s)/Referral(s): Preet Graham MD [Primary Care Provider] - 1 Week Discharge Disposition: HOME SELF-CARE
[2020-06-11 08:03] VITALS: BP 143/68; PULSE 68; RESP 16; TEMP 98.4
[2020-06-11] MEDS: VANCOMYCIN 125 MG CAPSULE PO SCH (08:03)
[2020-06-11] MEDS: amLODIPine 5 MG TAB PO SCH (08:03)
[2020-06-11] MEDS: PANTOPRAZOLE 40 MG TABLET PO SCH (08:03)
[2020-06-11] MEDS: LACTOBACILLUS ACIDOPH & BULGAR 1 EACH PACKET PO SCH (08:03)
[2020-06-11] MEDS: METOPROLOL TARTRATE 25 MG TAB PO SCH (08:03)
[2020-06-11] MEDS: OXYBUTYNIN CHLORIDE 5 MG TAB PO SCH (08:03)
[2020-06-11] MEDS: ASPIRIN 81 MG PO SCH (08:03)
--- NOTE | 2020-06-13 15:52 | P.PN ---
Progress Note - Text Progress Note Date: 06/11/20 REASON FOR FOLLOWUP: C difficile colitis. INTERVAL HISTORY: Patient remains to be afebrile. The patient is breathing comfortably. Patient denies having any chest pain or shortness of breath or cough. The patient diarrhea has improved And did not have any bowel movement since last evening, denies any pain to the right hand previous surgical site PHYSICAL EXAMINATION: Blood pressure 180/90 with a pulse of 70, temperature 98.5, she is 95% on room air. General description is an elderly female up in the bed in no distress. RESPIRATORY SYSTEM: Unlabored breathing clear to auscultation anteriorly. HEART: S1, S2. Regular rate and rhythm. ABDOMEN: Soft no tenderness. LABS: Reviewed . DIAGNOSTIC IMPRESSION AND PLAN: Patient with C difficile colitis has shown clinical response to oral vancomycin, Patient is to continue with the vancomycin for another week to finish a ten-day course of therapy Patient had been advised to increase her probiotic and yogurt intake and continue supportive care
== END 2020-06-11 09:32 | disposition home or self-care (01) | DRG 373 ==
LOC: EC 20:04 → 1SOBS 23:04 → OBSVTOIN 06-09 08:01
PROVIDERS: ADMIT Family Medicine; ATTEND Family Medicine
DX: A04.72 Enterocolitis due to Clostridium difficile, not specified as recurrent (principal); E03.9 Hypothyroidism, unspecified; E78.5 Hyperlipidemia, unspecified; E86.0 Dehydration; M79.7 Fibromyalgia; N28.1 Cyst of kidney, acquired; T36.95XA Adverse effect of unspecified systemic antibiotic, initial encounter; K21.9 Gastro-esophageal reflux disease without esophagitis; M65.9 Synovitis and tenosynovitis, unspecified; M65.141 Other infective (teno)synovitis, right hand; K59.00 Constipation, unspecified; M54.5 Low back pain; G89.29 Other chronic pain; H26.9 Unspecified cataract; K22.70 Barrett's esophagus without dysplasia; K44.9 Diaphragmatic hernia without obstruction or gangrene; N32.81 Overactive bladder; M15.9 Polyosteoarthritis, unspecified; R51 Headache; Z90.710 Acquired absence of both cervix and uterus; Z90.89 Acquired absence of other organs; Z80.52 Family history of malignant neoplasm of bladder; Z80.41 Family history of malignant neoplasm of ovary; Z80.0 Family history of malignant neoplasm of digestive organs; K58.9 Irritable bowel syndrome, unspecified; Z80.8 Family history of malignant neoplasm of other organs or systems; Z88.0 Allergy status to penicillin; Z88.8 Allergy status to other drugs, medicaments and biological substances; Z79.82 Long term (current) use of aspirin; Z79.890 Hormone replacement therapy; Z79.899 Other long term (current) drug therapy; Z80.1 Family history of malignant neoplasm of trachea, bronchus and lung; Z90.49 Acquired absence of other specified parts of digestive tract; Z82.49 Family history of ischemic heart disease and other diseases of the circulatory system; E66.9 Obesity, unspecified; Z68.28 Body mass index [BMI] 28.0-28.9, adult
CPT/HCPCS: 36415; 71046; 74018; 74177; 80048; 80053; 81001; 82272; 83605; 85025; 85610; 85652; 85730; 86140; 87040; 87324; 93005; 96365; 96366; 96367; 96375; 99285

== ENCOUNTER 2020-06-11 22:53 | Inpatient (IN) | payer MEDICARE, OTHER ==
[2020-06-11] MEDS ORDERED: SODIUM CHLORIDE 0.9% 1,000 ML IV STA (23:11)
[2020-06-11] MEDS ORDERED: ONDANSETRON 4 MG/2 ML VIAL IVP STA (23:12)
--- NOTE | 2020-06-11 23:14 | ED ---
Dizziness HPI - General Chief Complaint: Dizziness Stated Complaint: Dizziness, nausea Time Seen by Provider: 06/11/20 23:01 Source: patient, RN notes reviewed, old records reviewed Mode of arrival: wheelchair Limitations: no limitations - History of Present Illness Initial Comments: This is a 62-year-old female DF for weakness weakness nausea and not feeling well persistent diarrhea with diagnosis of C. diff. Occasional headache today patient states that she may pass out earlier, patient was discharged in the hospital earlier today states she was discharged she was feeling quite well. Otherwise no new complaints no no new fevers MD Complaint: dizziness, lightheadedness, near syncope -: hour(s) Timing: gradual onset Description: lightheadedness, nausea, near-syncope History of Same: Yes History of Trauma: No Severity: moderate Improves With: remaining still, rehydration Worsens With: movement Associated Symptoms: loss of appetite, malaise, weakness - Related Data Home Medications Medication Instructions Recorded Confirmed Levothyroxine Sodium [Synthroid] 88 mcg PO DAILY 01/28/15 06/11/20 Oxybutynin Chloride [Ditropan] 5 mg PO TID 01/28/15 06/11/20 traMADol HCl [Ultram] 100 mg PO Q6H PRN 01/28/15 06/11/20 Naproxen [Naprosyn] 500 mg PO AC-BID 05/23/19 06/11/20 Metoprolol Tartrate [Lopressor] 25 mg PO BID 05/09/20 06/11/20 Montelukast Sodium [Singulair] 10 mg PO HS 05/09/20 06/11/20 Potassium Gluconate 99 mg PO DAILY 05/09/20 06/11/20 Aspirin EC [Ecotrin Low Dose] 81 mg PO DAILY 05/16/20 06/11/20 Cholestyramine (with Sugar) 4 gm PO AC-TID PRN 06/11/20 06/11/20 [Questran Packet] Lactobacillus Acidoph & Bulgar 1 packet PO BID 06/11/20 06/11/20 [Lactinex] Previous Rx's Medication Instructions Recorded Pantoprazole [Protonix] 40 mg PO DAILY #30 tablet. 06/11/20 Vancomycin 125 mg PO QID #28 capsule 06/11/20 amLODIPine [Norvasc] 5 mg PO DAILY #30 tab 06/11/20 Allergies Allergy/AdvReac Type Severity Reaction Status Date / Time Penicillins Allergy Rash/Hives Verified 06/11/20 22:59 Iflupxz-Koq-Sgx Reductase AdvReac leg pain Verified 06/11/20 22:59 Inhibitor Review of Systems ROS Statement: Those systems with pertinent positive or pertinent negative responses have been documented in the HPI. ROS Other: All systems not noted in ROS Statement are negative. Past Medical History Past Medical History: Eye Disorder, Fibromyalgia, GERD/Reflux, Hyperlipidemia, Hypertension, Osteoarthritis (OA), Thyroid Disorder Additional Past Medical History / Comment(s): Pt recently admitted to [facility] on 05/09/20 with R middle finger post op infection with I&D. Other hx: Criciphangeal achlasia-top and bottom muscle, pt does not tolerate statins d/t leg pain, IBS, hiatal hernia, short segment Hager's esophagus, chronic low back pain with back stimulator in place with rechargeable battery, arhtritis in multiple joints, hypothyroid, overactive bladder, constipation, L eye cataract. 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 partial hysterectomy Past Anesthesia/Blood Transfusion Reactions: Previous Problems w/ Anesthesia Additional Past Anesthesia/Blood Transfusion Reaction / Comment(s): Headaches. Pt states intubate with care d/t cricopharygeal achlasia-top and bottom muscles affected. Past Psychological History: No Psychological Hx Reported Smoking Status: Never smoker Past Alcohol Use History: None Reported Past Drug Use History: None Reported - Past Family History Mother Family Medical History: Cancer, Diabetes Mellitus Additional Family Medical History / Comment(s): BLADDER AND OVARIAN CANCER AT AG E 72 Father Family Medical History: Cancer Additional Family Medical History / Comment(s): COLON AND SKIN CANCER Sister(s) Family Medical History: Coronary Artery Disease (CAD), Myocardial Infarction (PR) Additional Family Medical History / Comment(s): Sister had 3 or 4 MIs with firt one at age 68yrs. She has coronary stents. Brother(s) Family Medical History: Cancer Additional Family Medical History / Comment(s): Brother was a smoker. He of lung cancer. General Exam Limitations: no limitations General appearance: alert, in no apparent distress Head exam: Present: atraumatic, normocephalic, normal inspection Eye exam: Present: normal appearance, PERRL, EOMI. Absent: scleral icterus, conjunctival injection, periorbital swelling ENT exam: Present: normal exam, mucous membranes moist Neck exam: Present: normal inspection. Absent: tenderness, meningismus, lymphadenopathy Respiratory exam: Present: normal lung sounds bilaterally. Absent: respiratory distress, wheezes, rales, rhonchi, stridor Cardiovascular Exam: Present: regular rate, normal rhythm, normal heart sounds. Absent: systolic murmur, diastolic murmur, rubs, gallop, clicks GI/Abdominal exam: Present: soft, normal bowel sounds. Absent: distended, tenderness, guarding, rebound, rigid Extremities exam: Present: normal inspection, full ROM, normal capillary refill. Absent: tenderness, pedal edema, joint swelling, calf tenderness Back exam: Present: normal inspection Neurological exam: Present: alert, oriented X3, CN II-XII intact Psychiatric exam: Present: normal affect, normal mood Skin exam: Present: warm, dry, intact, normal color. Absent: rash Course Vital Signs 06/11/20 06/12/20 22:57 00:17 Temperature 98.2 F Pulse Rate 77 72 Respiratory 16 16 Rate Blood Pressure 157/87 163/89 O2 Sat by Pulse 99 92 L Oximetry - Reevaluation(s) Reevaluation #1: 06/12/20 01:07 Medical record is reviewed 06/12/20 01:07 And patient osculation is reviewed including positive C. diff test Reevaluation #2: 06/12/20 01:07 Patient still feeling weak dizzy lightheaded - Consultations Consultation #1: Spoke with Dr. Graham agrees to admit this patient Medical Decision Making - Medical Decision Making 62 female DF for evaluation patient Dese for a persistent C. diff colitis ration feeling weak dizzy lightheaded, persistent pain. Patient will admit for f urther evaluation management - Lab Data Result diagrams: 06/11/20 23:24 06/11/20 23:24 Lab Results 06/11/20 06/11/20 06/11/20 Range/Units 23:11 23:24 23:24 WBC 6.5 (3.8-10.6) k/uL RBC 4.24 (3.80-5.40) m/uL Hgb 11.6 (11.4-16.0) gm/dL Hct 36.3 (34.0-46.0) % MCV 85.6 (80.0-100.0) fL MCH 27.5 (25.0-35.0) pg MCHC 32.1 (31.0-37.0) g/dL RDW 13.9 (11.5-15.5) % Plt Count 246 (150-450) k/uL Neutrophils % 58 % Lymphocytes % 29 % Monocytes % 7 % Eosinophils % 3 % Basophils % 1 % Neutrophils # 3.8 (1.3-7.7) k/uL Lymphocytes # 1.9 (1.0-4.8) k/uL Monocytes # 0.4 (0-1.0) k/uL Eosinophils # 0.2 (0-0.7) k/uL Basophils # 0.0 (0-0.2) k/uL PT 9.7 (9.0-12.0) sec INR 0.9 (<1.2) APTT 24.6 (22.0-30.0) sec Sodium (137-145) mmol/L Potassium (3.5-5.1) mmol/L Chloride (98-107) mmol/L Carbon Dioxide (22-30) mmol/L Anion Gap mmol/L BUN (7-17) mg/dL Creatinine (0.52-1.04) mg/dL Est GFR (CKD-EPI)AfAm (>60 ml/min/1.73 sqM) Est GFR (CKD-EPI)NonAf (>60 ml/min/1.73 sqM) Glucose (74-99) mg/dL Plasma Lactic Acid Cong (0.7-2.0) mmol/L Calcium (8.4-10.2) mg/dL Phosphorus (2.5-4.5) mg/dL Magnesium (1.6-2.3) mg/dL Total Bilirubin (0.2-1.3) mg/dL AST (14-36) U/L ALT (4-34) U/L Alkaline Phosphatase (38-126) U/L Creatine Kinase (30-135) U/L Troponin I (0.000-0.034) ng/mL Total Protein (6.3-8.2) g/dL Albumin (3.5-5.0) g/dL Urine Color Light Yellow Urine Appearance Clear (Clear) Urine pH 6.5 (5.0-8.0) Ur Specific [place] 1.010 (1.001-1.035) Urine Protein Negative (Negative) Urine Glucose (UA) Negative (Negative) Urine Ketones Negative (Negative) Urine Blood Trace H (Negative) Urine Nitrite Negative (Negative) Urine Bilirubin Negative (Negative) Urine Urobilinogen <2.0 (<2.0) mg/dL Ur Leukocyte Esterase Negative (Negative) Urine RBC <1 (0-5) /hpf Urine WBC 2 (0-5) /hpf Ur Squamous Epith Cells 1 (0-4) /hpf Urine Bacteria Rare H (None) /hpf Urine Mucus Many H (None) /hpf 06/11/20 06/11/20 06/11/20 Range/Units 23:24 23:24 23:24 WBC (3.8-10.6) k/uL RBC (3.80-5.40) m/uL Hgb (11.4-16.0) gm/dL Hct (34.0-46.0) % MCV (80.0-100.0) fL MCH (25.0-35.0) pg MCHC (31.0-37.0) g/dL RDW (11.5-15.5) % Plt Count (150-450) k/uL Neutrophils % % Lymphocytes % % Monocytes % % Eosinophils % % Basophils % % Neutrophils # (1.3-7.7) k/uL Lymphocytes # (1.0-4.8) k/uL Monocytes # (0-1.0) k/uL Eosinophils # (0-0.7) k/uL Basophils # (0-0.2) k/uL PT (9.0-12.0) sec INR (<1.2) APTT (22.0-30.0) sec Sodium 137 (137-145) mmol/L Potassium 4.0 (3.5-5.1) mmol/L Chloride 105 (98-107) mmol/L Carbon Dioxide 23 (22-30) mmol/L Anion Gap 9 mmol/L BUN 12 (7-17) mg/dL Creatinine 0.67 (0.52-1.04) mg/dL Est GFR (CKD-EPI)AfAm >90 (>60 ml/min/1.73 sqM) Est GFR (CKD-EPI)NonAf >90 (>60 ml/min/1.73 sqM) Glucose 109 H (74-99) mg/dL Plasma Lactic Acid Cong 0.8 (0.7-2.0) mmol/L Calcium 9.2 (8.4-10.2) mg/dL Phosphorus 4.8 H (2.5-4.5) mg/dL Magnesium 1.7 (1.6-2.3) mg/dL Total Bilirubin 0.4 (0.2-1.3) mg/dL AST 45 H (14-36) U/L ALT 31 (4-34) U/L Alkaline Phosphatase 72 (38-126) U/L Creatine Kinase 59 (30-135) U/L Troponin I <0.012 (0.000-0.034) ng/mL Total Protein 7.1 (6.3-8.2) g/dL Albumin 4.1 (3.5-5.0) g/dL Urine Color Urine Appearance (Clear) Urine pH (5.0-8.0) Ur Specific [place] (1.001-1.035) Urine Protein (Negative) Urine Glucose (UA) (Negative) Urine Ketones (Negative) Urine Blood (Negative) Urine Nitrite (Negative) Urine Bilirubin (Negative) Urine Urobilinogen (<2.0) mg/dL Ur Leukocyte Esterase (Negative) Urine RBC (0-5) /hpf Urine WBC (0-5) /hpf Ur Squamous Epith Cells (0-4) /hpf Urine Bacteria (None) /hpf Urine Mucus (None) /hpf Disposition Clinical Impression: C. difficile colitis, Dehydration Disposition: ADMITTED IP TO THIS HOSP Condition: Fair Is patient prescribed a controlled substance at d/c from ED?: No Referrals: Preet Graham MD [Primary Care Provider] - 1-2 days
[2020-06-11 23:32] LABS: Basophils % (A) 1 %; Eosinophils # (A) 0.2 k/uL (0-0.7); Eosinophils % (A) 3 %; HCT 36.3 % (34.0-46.0); HGB 11.6 gm/dL (11.4-16.0); Lymphocytes # (A) 1.9 k/uL (1.0-4.8); Lymphocytes % (A) 29 %; MCH 27.5 pg (25.0-35.0); MCHC 32.1 g/dL (31.0-37.0); MCV 85.6 fL (80.0-100.0); Mean Platelet Volume 6.8; Monocytes # (A) 0.4 k/uL (0-1.0); Monocytes % (A) 7 %; Neutrophils # (A) 3.8 k/uL (1.3-7.7); Neutrophils % (A) 58 %; Platelet Count 246 k/uL (150-450); RBC 4.24 m/uL (3.80-5.40); RDW 13.9 % (11.5-15.5); WBC 6.5 k/uL (3.8-10.6)
[2020-06-11] MEDS ORDERED: PANTOPRAZOLE 40 MG/10 ML VIAL IVP STA (23:41)
[2020-06-11] MEDS ORDERED: MORPHINE SULFATE 4 MG/ML SYRINGE IVP STA (23:41)
[2020-06-11 23:43] LABS: ALT 31 U/L (4-34); AST 45 U/L (14-36); African American GFR (CKD) >90 (>60 ml/min/1.73 sqM); Albumin 4.1 g/dL (3.5-5.0); Alkaline Phosphatase 72 U/L (38-126); Anion Gap 9 mmol/L; Blood Urea Nitrogen 12 mg/dL (7-17); Calcium 9.2 mg/dL (8.4-10.2); Carbon Dioxide 23 mmol/L (22-30); Chloride 105 mmol/L (98-107); Creatine Kinase 59 U/L (30-135); Glucose 109 mg/dL (74-99); Magnesium 1.7 mg/dL (1.6-2.3); Non-African American GFR(CKD) >90 (>60 ml/min/1.73 sqM); Phosphorus 4.8 mg/dL (2.5-4.5); Sodium 137 mmol/L (137-145); Total Bilirubin 0.4 mg/dL (0.2-1.3); Total Protein 7.1 g/dL (6.3-8.2)
[2020-06-11 23:48] LABS: INR 0.9 (<1.2); Partial Thromboplastin Time 24.6 sec (22.0-30.0); Prothrombin Time 9.7 sec (9.0-12.0)
[2020-06-12 00:35] LABS: Appearance,Urine Clear (Clear); Bacteria,Urine Rare /hpf; Bilirubin,Urine Negative (Negative); Blood,Urine Trace (Negative); Color,Urine Light Yellow; Glucose,Urine (UA) Negative (Negative); Ketones,Urine Negative (Negative); Leukocyte Esterase,Urine Negative (Negative); Mucus,Urine Many /hpf; Nitrite,Urine Negative (Negative); PH, Urine 6.5 (5.0-8.0); Protein,Urine Negative (Negative); RBC,Urine <1 /hpf (0-5); Squamous Epithelial Cell,Urine 1 /hpf (0-4); Urobilinogen,Urine <2.0 mg/dL (<2.0); WBC,Urine 2 /hpf (0-5)
[2020-06-12] MEDS ORDERED: SODIUM CHLORIDE 0.9% 1,000 ML IV ONE (01:06)
[2020-06-12] MEDS ORDERED: ONDANSETRON 4 MG/2 ML VIAL IVP PRN (01:08)
[2020-06-12] MEDS ORDERED: MORPHINE SULFATE 4 MG/ML SYRINGE IVP PRN (01:08)
[2020-06-12] MEDS: PANTOPRAZOLE 40 MG/10 ML VIAL IVP SCH (08:04)
--- NOTE | 2020-06-12 08:05 | P.HPIM ---
History of Present Illness H&P Date: 06/12/20 Chief Complaint: Dizziness This is history of physical 70-year-old white female who is readmitted secondary to dizziness. She was not tolerating diet and felt poorly after being discharged for Clostridium difficile colitis which was improving. She now complains of minimal diarrhea. However, she's not tolerating by mouth intake properly and she is admitted for rehydration. Review of Systems Constitutional: Reports fatigue, Denies chills, Denies fever Eyes: denies blurred vision, denies pain Ears, nose, mouth and throat: Denies headache, Denies sore throat Cardiovascular: Denies chest pain, Denies shortness of breath Respiratory: Denies cough Gastrointestinal: Reports as per HPI Past Medical History Past Medical History: Eye Disorder, Fibromyalgia, GERD/Reflux, Hyperlipidemia, Hypertension, Osteoarthritis (OA), Thyroid Disorder Additional Past Medical History / Comment(s): Pt recently admitted to [facility] on 05/09/20 with R middle finger post op infection with I&D. Other hx: Criciphangeal achlasia-top and bottom muscle, pt does not tolerate statins d/t leg pain, IBS, hiatal hernia, short segment Hager's esophagus, chronic low back pain with back stimulator in place with rechargeable battery, arhtritis in multiple joints, hypothyroid, overactive bladder, constipation, L eye cataract. 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 partial hysterectomy Past Anesthesia/Blood Transfusion Reactions: Previous Problems w/ Anesthesia Additional Past Anesthesia/Blood Transfusion Reaction / Comment(s): Headaches. Pt states intubate with care d/t cricopharygeal achlasia-top and bottom muscles affected. Past Psychological History: No Psychological Hx Reported Additional Psychological History / Comment(s): . Smoking Status: Never smoker Past Alcohol Use History: None Reported Past Drug Use History: None Reported - Past Family History Mother Family Medical History: Cancer, Diabetes Mellitus Additional Family Medical History / Comment(s): BLADDER AND OVARIAN CANCER AT AGE 72 Father Family Medical History: Cancer Additional Family Medical History / Comment(s): COLON AND SKIN CANCER Sister(s) Family Medical History: Coronary Artery Disease (CAD), Myocardial Infarction (NM) Additional Family Medical History / Comment(s): Sister had 3 or 4 MIs with firt one at age 68yrs. She has coronary stents. Brother(s) Family Medical History: Cancer Additional Family Medical History / Comment(s): Brother was a smoker. He of lung cancer. Medications and Allergies Home Medications Medication Instructions Recorded Confirmed Type Levothyroxine Sodium [Synthroid] 88 mcg PO DAILY 01/28/15 06/11/20 History Oxybutynin Chloride [Ditropan] 5 mg PO TID 01/28/15 06/11/20 History traMADol HCl [Ultram] 100 mg PO Q6H PRN 01/28/15 06/11/20 History Naproxen [Naprosyn] 500 mg PO AC-BID 05/23/19 06/11/20 History Metoprolol Tartrate [Lopressor] 25 mg PO BID 05/09/20 06/11/20 History Montelukast Sodium [Singulair] 10 mg PO HS 05/09/20 06/11/20 History Potassium Gluconate 99 mg PO DAILY 05/09/20 06/11/20 History Aspirin EC [Ecotrin Low Dose] 81 mg PO DAILY 05/16/20 06/11/20 History Cholestyramine (with Sugar) 4 gm PO AC-TID PRN 06/11/20 06/11/20 History [Questran Packet] Lactobacillus Acidoph & Bulgar 1 packet PO BID 06/11/20 06/11/20 History [Lactinex] Pantoprazole [Protonix] 40 mg PO DAILY #30 tablet. 06/11/20 06/11/20 Rx Vancomycin 125 mg PO QID #28 capsule 06/11/20 06/11/20 Rx amLODIPine [Norvasc] 5 mg PO DAILY #30 tab 06/11/20 06/11/20 Rx Allergies Allergy/AdvReac Type Severity Reaction Status Date / Time Penicillins Allergy Rash/Hives Verified 06/11/20 22:59 Jfbjtmn-Jfz-Rht Reductase AdvReac leg pain Verified 06/11/20 22:59 Inhibitor Physical Exam Vitals: Vital Signs Temp Pulse Pulse Resp BP BP Pulse Ox 06/12/20 03:03 16 06/12/20 02:35 98.3 F 59 L 16 157/86 95 06/12/20 02:00 98.4 F 75 16 159/87 97 06/12/20 00:17 72 16 163/89 92 L 06/11/20 22:57 98.2 F 77 16 157/87 99 Intake and Output 06/11/20 06/12/20 06/12/20 22:59 06:59 14:59 Intake Total 800 Balance 800 Intake: Intake, IV Titration 800 Amount Sodium Chloride 0.9% 1, 800 000 ml @ 100 mls/hr IV . Q10H ONE Rx#:[id number] Other: Voiding Method Toilet # Voids 1 Weight 76.204 kg 76.204 kg - Constitutional General appearance: no acute distress - EENT Eyes: EOMI - Neck Neck: no lymphadenopathy - Respiratory Respiratory: bilateral: CTA - Cardiovascular Rhythm: regular Heart sounds: normal: S1, S2 Abnormal Heart Sounds: no S3 Gallop - Gastrointestinal General gastrointestinal: soft, tenderness Localized gastrointestinal: tender: diffuse - Integumentary Integumentary: normal Results CBC & Chem 7: 06/11/20 23:24 06/11/20 23:24 Labs: Abnormal Lab Results - Last 24 Hours (Table) 06/11/20 06/11/20 Range/Units 23:11 23:24 Glucose 109 H (74-99) mg/dL Phosphorus 4.8 H (2.5-4.5) mg/dL AST 45 H (14-36) U/L Urine Blood Trace H (Negative) Urine Bacteria Rare H (None) /hpf Urine Mucus Many H (None) /hpf Thrombosis Risk Factor Assmnt - Choose All That Apply Any of the Below Risk Factors Present?: Yes Each Factor Represents 1 point: Medical pt on bed rest Other Risk Factors: Yes Each Risk Factor Represents 2 Points: Age 61-74 years Thrombosis Risk Factor Assessment Total Risk Factor Score: 3 Thrombosis Risk Factor Assessment Level: Moderate Risk Assessment and Plan (1) C. difficile colitis Current Visit: Yes Status: Acute Code(s): A04.72 - ENTEROCOLITIS D/T CLOSTRIDIUM DIFFICILE, NOT SPCF RECUR SNOMED Code(s): 701481697 (2) Dehydration Current Visit: Yes Status: Acute Code(s): E86.0 - DEHYDRATION SNOMED Code(s): 42289803 (3) Fibromyalgia Current Visit: No Status: Acute Code(s): M79.7 - FIBROMYALGIA SNOMED Code(s): 835176877 Plan: We will go ahead and continue rehydration. Check CBC and CMP in a.m. Reconcile home medications. If the diarrhea recurs, consider reconsulting infectious disease were changing appropriate antibiotic treatment. Anticipate discharge in the next 24-48 hours Time with Patient: Greater than 30
[2020-06-12] MEDS: ASPIRIN 81 MG PO SCH (09:08)
[2020-06-12] MEDS: amLODIPine 5 MG TAB PO SCH (09:08)
[2020-06-12] MEDS: METOPROLOL TARTRATE 25 MG TAB PO SCH ×2 (09:08→20:45)
[2020-06-12] MEDS: OXYBUTYNIN CHLORIDE 5 MG TAB PO SCH ×3 (09:08→20:45)
[2020-06-12] MEDS: LACTOBACILLUS ACIDOPH & BULGAR 1 EACH PACKET PO SCH ×2 (09:08→20:45)
[2020-06-12] MEDS: LEVOTHYROXINE 88 MCG TAB PO SCH (09:12)
[2020-06-12] MEDS: traMADol 50 MG TAB PO PRN ×2 (09:12→20:43)
[2020-06-12] MEDS: VANCOMYCIN 125 MG CAPSULE PO SCH ×4 (14:08→20:45)
[2020-06-12 15:11] VITALS: RESP 18
[2020-06-12] MEDS: NAPROXEN 250 MG TAB PO SCH (16:14)
[2020-06-12] MEDS ORDERED: ACETAMINOPHEN TAB 325 MG TAB PO PRN (16:18)
[2020-06-12] MEDS ORDERED: traMADol 50 MG TAB PO PRN (17:42)
[2020-06-12] MEDS ORDERED: MONTELUKAST 10 MG TAB PO SCH (21:00)
[2020-06-13] MEDS: LEVOTHYROXINE 88 MCG TAB PO SCH (05:34)
[2020-06-13] MEDS: traMADol 50 MG TAB PO PRN (05:34)
[2020-06-13 06:59] LABS: HCT 34.7 % (34.0-46.0); MCH 27.2 pg (25.0-35.0); MCHC 31.8 g/dL (31.0-37.0); MCV 85.4 fL (80.0-100.0); Mean Platelet Volume 6.9; Platelet Count 264 k/uL (150-450); RBC 4.06 m/uL (3.80-5.40); WBC 5.3 k/uL (3.8-10.6)
[2020-06-13] MEDS ORDERED: PANTOPRAZOLE 40 MG TABLET PO SCH (07:30)
[2020-06-13] MEDS ORDERED: SUMAtriptan succinate 50 MG TAB PO STA (08:10)
--- NOTE | 2020-06-13 08:13 | P.DS ---
Providers Date of admission: 06/12/20 01:07 Attending physician: Preet Graham Primary care physician: Preet Graham - Discharge Diagnosis(es) (1) C. difficile colitis Current Visit: Yes Status: Acute (2) Dehydration Current Visit: Yes Status: Acute (3) Fibromyalgia Current Visit: No Status: Acute Hospital Course: This 70-year-old white female essentially readmitted related to cluster so colitis and dehydration. The patient rehydrated and is now starting to tolerate diet she does complain of some mild constipation and headache. No fever. We will go ahead and start Imitrex prior to discharge. Now that her colitis is resolving, she is comfortable going home and we will do so once she is tolerating diet today. Patient Condition at Discharge: Fair Plan - Discharge Summary Discharge Rx Participant: No New Discharge Prescriptions: New SUMAtriptan succinate [Imitrex] 50 mg PO BID #9 tab Continue traMADol HCl [Ultram] 100 mg PO Q6H PRN PRN Reason: Pain Oxybutynin Chloride [Ditropan] 5 mg PO TID Levothyroxine Sodium [Synthroid] 88 mcg PO DAILY Naproxen [Naprosyn] 500 mg PO AC-BID Potassium Gluconate 99 mg PO DAILY Montelukast Sodium [Singulair] 10 mg PO HS Metoprolol Tartrate [Lopressor] 25 mg PO BID Aspirin EC [Ecotrin Low Dose] 81 mg PO DAILY amLODIPine [Norvasc] 5 mg PO DAILY #30 tab Pantoprazole [Protonix] 40 mg PO DAILY #30 tablet. Vancomycin 125 mg PO QID #28 capsule Cholestyramine (with Sugar) [Questran Packet] 4 gm PO AC-TID PRN PRN Reason: Diarrhea Lactobacillus Acidoph & Bulgar [Lactinex] 1 packet PO BID Discharge Medication List Levothyroxine Sodium [Synthroid] 88 mcg PO DAILY 01/28/15 [History] Oxybutynin Chloride [Ditropan] 5 mg PO TID 01/28/15 [History] traMADol HCl [Ultram] 100 mg PO Q6H PRN 01/28/15 [History] Naproxen [Naprosyn] 500 mg PO AC-BID 05/23/19 [History] Metoprolol Tartrate [Lopressor] 25 mg PO BID 05/09/20 [History] Montelukast Sodium [Singulair] 10 mg PO HS 05/09/20 [History] Potassium Gluconate 99 mg PO DAILY 05/09/20 [History] Aspirin EC [Ecotrin Low Dose] 81 mg PO DAILY 05/16/20 [History] Cholestyramine (with Sugar) [Questran Packet] 4 gm PO AC-TID PRN 06/11/20 [History] Lactobacillus Acidoph & Bulgar [Lactinex] 1 packet PO BID 06/11/20 [History] Pantoprazole [Protonix] 40 mg PO DAILY #30 tablet.dr 06/11/20 [Rx] Vancomycin 125 mg PO QID #28 capsule 06/11/20 [Rx] amLODIPine [Norvasc] 5 mg PO DAILY #30 tab 06/11/20 [Rx] SUMAtriptan succinate [Imitrex] 50 mg PO BID #9 tab 06/13/20 [Rx] Follow up Appointment(s)/Referral(s): Preet Graham MD [Primary Care Provider] - 1-2 days
[2020-06-13] MEDS: VANCOMYCIN 125 MG CAPSULE PO SCH ×2 (09:09→12:13)
[2020-06-13] MEDS: PANTOPRAZOLE 40 MG/10 ML VIAL IVP SCH (09:09)
[2020-06-13] MEDS: NAPROXEN 250 MG TAB PO SCH (09:11)
[2020-06-13] MEDS: METOPROLOL TARTRATE 25 MG TAB PO SCH (09:11)
[2020-06-13] MEDS: amLODIPine 5 MG TAB PO SCH (09:11)
[2020-06-13] MEDS: ASPIRIN 81 MG PO SCH (09:11)
[2020-06-13] MEDS: OXYBUTYNIN CHLORIDE 5 MG TAB PO SCH (09:11)
[2020-06-13] MEDS: LACTOBACILLUS ACIDOPH & BULGAR 1 EACH PACKET PO SCH (09:12)
[2020-06-13 10:37] LABS: African American GFR (CKD) 87.8 (60.0-200.0); Albumin 3.9 g/dL (3.80-4.90); Albumin/Globulin Ratio 1.77 (1.60-3.17); Anion Gap 5.9 mmol/L (4.00-12.00); BUN/Creat Ratio 11.25 Ratio (12.00-20.00); Calcium 8.9 mg/dL (8.7-10.3); Carbon Dioxide 29.1 mmol/L (21.6-31.8); Globulin 2.2 g/dL (1.6-3.3); Non-African American GFR(CKD) 75.8 (60.0-200.0); Potassium 4.5 mmol/L (3.5-5.5); Total Bilirubin 0.3 mg/dL (0.3-1.2); Total Protein 6.1 g/dL (6.2-8.2)
[2020-06-13 14:48] VITALS: BP 156/76; PULSE 57; TEMP 97.8
[2020-06-14] MEDS ORDERED: PANTOPRAZOLE 40 MG TABLET PO SCH (07:30)
== END 2020-06-13 15:18 | disposition home or self-care (01) | DRG 373 ==
LOC: EC 22:53 → 4SSUR 06-12 01:07
PROVIDERS: ADMIT Family Medicine; ATTEND Family Medicine
DX: A04.72 Enterocolitis due to Clostridium difficile, not specified as recurrent (principal); E86.0 Dehydration; E78.5 Hyperlipidemia, unspecified; I10 Essential (primary) hypertension; M79.7 Fibromyalgia; K21.9 Gastro-esophageal reflux disease without esophagitis; M19.90 Unspecified osteoarthritis, unspecified site; K59.00 Constipation, unspecified; R51 Headache; G89.29 Other chronic pain; K22.0 Achalasia of cardia; K22.70 Barrett's esophagus without dysplasia; M54.9 Dorsalgia, unspecified; N32.81 Overactive bladder; Z79.890 Hormone replacement therapy; Z79.82 Long term (current) use of aspirin; Z79.899 Other long term (current) drug therapy; Z88.0 Allergy status to penicillin; Z88.8 Allergy status to other drugs, medicaments and biological substances; Z86.19 Personal history of other infectious and parasitic diseases; Z96.82 Presence of neurostimulator; Z90.49 Acquired absence of other specified parts of digestive tract; Z90.89 Acquired absence of other organs; Z90.711 Acquired absence of uterus with remaining cervical stump; Z90.710 Acquired absence of both cervix and uterus; Z98.890 Other specified postprocedural states; Z82.49 Family history of ischemic heart disease and other diseases of the circulatory system; Z83.3 Family history of diabetes mellitus; Z80.8 Family history of malignant neoplasm of other organs or systems; Z80.41 Family history of malignant neoplasm of ovary; Z80.1 Family history of malignant neoplasm of trachea, bronchus and lung
CPT/HCPCS: 36415; 80053; 81001; 82550; 83605; 83735; 84100; 84484; 85025; 85027; 85610; 85730; 93005; 96361; 96374; 96375; 99285

== ENCOUNTER → 2020-06-17 | Outpatient (CLI) | payer MEDICARE, OTHER ==
--- NOTE | 2020-06-17 16:19 | XR ---
2 view abdomen HISTORY: Diarrhea, R 11 2 views the abdomen on 3 images Correlation to prior KUB 06/07/2020, CT 06/07/2020 Retained fecal debris is present throughout the distribution of the colon. There is a generator in th e right gluteal region, thoracic cord stimulator leads are present coursing towards the lower thoraci c spine at the T8 level. There are probable phleboliths in the pelvis. There is no evident obstructio n or pneumoperitoneum. Lung bases are clear. IMPRESSION: Correlate for fecal stasis.
== END | disposition home or self-care (01) ==
LOC: RAD 15:30
PROVIDERS: ATTEND Family Medicine
DX: R11.0 Nausea (principal)
CPT/HCPCS: 74019

== ENCOUNTER → 2020-08-19 | Outpatient (CLI) | payer MEDICARE, OTHER ==
[2020-08-19 13:42] VITALS: BP 137/81; PULSE 85; RESP 18; TEMP 98.5
--- NOTE | 2020-08-19 14:14 | P.HPOB ---
History of Present Illness H&P Date: 08/19/20 Chief Complaint: The patient is here for her routine gynecologic exam and ma mmogram. This is a 70-year-old with an LMP of 1977. The patient is status post TERRANCE with RSO for benign reasons. The patient is without gynecologic complaints. She is currently taking oxybutynin for an overactive bladder which has been somewhat helpful. She states she saw , the gynecologic urologist, who did not feel she was a surgical candidate for her urinary incontinence. Review of Systems Weight has been stable. She denies respiratory, cardiac and G.I. problems. She denies maltreatment or problems with falling. : She has had some issues with urinary incontinence and is now taking oxybutynin for an overactive bladder. She does get up 2-3 times per night to urinate. Past Medical History Past Medical History: Eye Disorder, Fibromyalgia, GERD/Reflux, Hyperlipidemia, Hypertension, Osteoarthritis (OA), Thyroid Disorder Additional Past Medical History / Comment(s): Criciphangeal achlasia-top and bottom muscle, IBS, hiatal hernia, short segment Hager's esophagus, chronic low back pain with back stimulator in place with rechargeable battery, arhtritis in multiple joints, hypothyroid, overactive bladder, constipation, L eye cataract. 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 Past Anesthesia/Blood Transfusion Reactions: Previous Problems w/ Anesthesia Additional Past Anesthesia/Blood Transfusion Reaction / Comment(s): Headaches. Pt states intubate with care d/t cricopharygeal achlasia-top and bottom muscles affected. Past Psychological History: No Psychological Hx Reported Additional Psychological History / Comment(s): . 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 She is planning on moving to [place] in August 2020. - Past Family History Mother Family Medical History: Cancer, Diabetes Mellitus Additional Family Medical History / Comment(s): BLADDER AND OVARIAN CANCER AT AGE 72 Father Family Medical History: Cancer Additional Family Medical History / Comment(s): COLON AND SKIN CANCER Sister(s) Family Medical History: Coronary Artery Disease (CAD), Myocardial Infarction (HI) Additional Family Medical History / Comment(s): Sister had 3 or 4 MIs with firt one at age 68yrs. She has coronary stents. Brother(s) Family Medical History: Cancer Additional Family Medical History / Comment(s): Brother was a smoker. He of lung cancer. Medications and Allergies Home Medications Medication Instructions Recorded Confirmed Type Levothyroxine Sodium [Synthroid] 88 mcg PO DAILY 01/28/15 08/19/20 History Oxybutynin Chloride [Ditropan] 5 mg PO TID 01/28/15 08/19/20 History traMADol HCl [Ultram] 100 mg PO Q6H PRN 01/28/15 08/19/20 History Naproxen [Naprosyn] 500 mg PO AC-BID 05/23/19 08/19/20 History Metoprolol Tartrate [Lopressor] 25 mg PO BID 05/09/20 08/19/20 History Montelukast Sodium [Singulair] 10 mg PO HS 05/09/20 08/19/20 History Potassium Gluconate 99 mg PO DAILY 05/09/20 08/19/20 History Aspirin EC [Ecotrin Low Dose] 81 mg PO DAILY 05/16/20 08/19/20 History amLODIPine [Norvasc] 5 mg PO DAILY #30 tab 06/11/20 08/19/20 Rx SUMAtriptan succinate [Imitrex] 50 mg PO BID #9 tab 06/13/20 08/19/20 Rx Omeprazole 20 mg PO DAILY 08/19/20 08/19/20 History Allergies Allergy/AdvReac Type Severity Reaction Status Date / Time Penicillins Allergy Rash/Hives Verified 08/19/20 13:42 Hzvajyv-Dae-Tza Reductase AdvReac leg pain Verified 08/19/20 13:42 Inhibitor Exam Vital Signs Temp Pulse Resp BP Pulse Ox 11/24/20 13:36 98.5 F 85 18 137/81 98 Intake and Output 08/18/20 08/19/20 08/19/20 22:59 06:59 14:59 Other: Weight 74.389 kg Height 5 feet 3 inches, weight 164 pounds, BMI 29.1. This is a well-developed well-nourished white female who is alert and oriented times 3 in no acute distress. HEENT: Within normal limits. NECK: Supple without mass or thyromegaly. CHEST AND LUNGS: Clear to auscultation. HEART: Regular rate and rhythm. BREASTS: Are without mass or discharge. AXILLARY EXAM: Negative for adenopathy. BACK: Negative for CVA tenderness. ABDOMEN: Soft, nontender, without palpable masses. PELVIC EXAM: External genitalia appears normal with mild atrophy. Vagina appears normal mild atrophy. There is no evidence of prolapse. Bimanual examination is negative for mass or tenderness. RECTAL EXAM: Rectovaginal exam is negative for mass or tenderness and is negative for occult blood. EXTREMITIES: Nontender. IMPRESSION: 1. 70-year-old menopausal female status post TERRANCE and RSO for benign reasons with normal gynecologic exam. 2. History of overactive bladder. PLAN: 1. Pap smears have been discontinued. 2. Self breast awareness was discussed with the patient. 3. Screening mammogram will be done today. 4. Osteoporosis prevention was discussed. I have stressed the importance of adequate calcium, vitamin D and regular exercise. Recommended amounts of calcium and vitamin D were also discussed. I recommended repeating bone density testing in 1-2 years. 5. She is planning to move to [place] in the next 2 months. She will establish with a doctor down there and she will see somebody for her well woman examination in 1-2 years.
--- NOTE | 2020-08-20 12:02 | MM ---
Reason for exam: screening (asymptomatic). Last mammogram was performed 1 year and 7 months ago. History: Patient is postmenopausal. Physical Findings: A clinical breast exam by your physician is recommended on an annual basis and results should be correlated with mammographic findings. MG Screening Mammo w CAD Bilateral CC and MLO view(s) were taken. Prior study comparison: January 23, 2019, bilateral MG 3d screening mammo w/cad. September 29, 2017, bilateral MG 3d screening mammo w/cad. The breast tissue is heterogeneously dense. This may lower the sensitivity of mammography. Finding: There are typically benign dystrophic calcifications in the central position of the left breast. There is no discrete abnormality. ASSESSMENT: Benign, BI-RAD 2 RECOMMENDATION: Routine screening mammogram of both breasts in 1 year.
== END | disposition home or self-care (01) ==
LOC: WWCWWP 13:24
PROVIDERS: ATTEND Obstetrics & Gynecology
DX: Z12.31 Encounter for screening mammogram for malignant neoplasm of breast (principal)
CPT/HCPCS: 77067

== ENCOUNTER 2020-09-28 18:30 | Emergency (ER) | payer MEDICARE, OTHER ==
--- NOTE | 2020-09-28 19:21 | ED ---
SOB HPI - General Chief Complaint: Shortness of Breath Stated Complaint: SOB, +covid exposure Time Seen by Provider: 09/28/20 19:06 Source: patient Mode of arrival: wheelchair Limitations: no limitations - History of Present Illness Initial Comments: 70-year-old female with history of hypertension, hyperlipidemia presenting to the emergency department with chief complaint of shortness of breath. Patient states her was diagnosed with Covid today and admitted to the hospital. States that she was around him the whole time prior to the admission without quarantine. Patient states she has been symptomatic for the past 2 days along with a nonproductive cough, dyspnea on exertion. Patient also reports chills, generalized fatigue and nonbloody diarrhea. Patient does report nausea but no vomiting. Patient also reports a headache but states this is not the worst headache of her life and it was gradual onset. Denies history of asthma, COPD or smoking. Denies any chest pain. - Related Data Home Medications Medication Instructions Recorded Confirmed Levothyroxine Sodium [Synthroid] 88 mcg PO DAILY 01/28/15 09/28/20 Oxybutynin Chloride [Ditropan] 5 mg PO TID 01/28/15 09/28/20 traMADol HCl [Ultram] 100 mg PO Q6H PRN 01/28/15 09/28/20 Naproxen [Naprosyn] 500 mg PO AC-BID 05/23/19 09/28/20 Metoprolol Tartrate [Lopressor] 25 mg PO BID 05/09/20 09/28/20 Montelukast Sodium [Singulair] 10 mg PO HS 05/09/20 09/28/20 Potassium Gluconate 99 mg PO DAILY 05/09/20 09/28/20 Aspirin EC [Ecotrin Low Dose] 81 mg PO DAILY 05/16/20 09/28/20 Omeprazole 20 mg PO BID 08/19/20 09/28/20 Allergies Allergy/AdvReac Type Severity Reaction Status Date / Time Penicillins Allergy Rash/Hives Verified 09/28/20 20:49 Gmktywe-Igt-Xum Reductase AdvReac leg pain Verified 09/28/20 20:49 Inhibitor Review of Systems ROS Statement: Those systems with pertinent positive or pertinent negative responses have been documented in the HPI. ROS Other: All systems not noted in ROS Statement are negative. Past Medical History Past Medical History: Eye Disorder, Fibromyalgia, GERD/Reflux, Hyperlipidemia, Hypertension, Osteoarthritis (OA), Thyroid Disorder Additional Past Medical History / Comment(s): Criciphangeal achlasia-top and bottom muscle, IBS, hiatal hernia, short segment Hager's esophagus, chronic low back pain with back stimulator in place with rechargeable battery, arhtritis in multiple joints, hypothyroid, overactive bladder, constipation, L eye cataract. 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 Past Anesthesia/Blood Transfusion Reactions: Previous Problems w/ Anesthesia Additional Past Anesthesia/Blood Transfusion Reaction / Comment(s): Headaches. Pt states intubate with care d/t cricopharygeal achlasia-top and bottom muscles affected. Past Psychological History: No Psychological Hx Reported Smoking Status: Never smoker Past Alcohol Use History: Occasional Past Drug Use History: None Reported - Past Family History Mother Family Medical History: Cancer, Diabetes Mellitus Additional Family Medical History / Comment(s): BLADDER AND OVARIAN CANCER AT AGE 72 Father Family Medical History: Cancer Additional Family Medical History / Comment(s): COLON AND SKIN CANCER Sister(s) Family Medical History: Coronary Artery Disease (CAD), Myocardial Infarction (DC) Additional Family Medical History / Comment(s): Sister had 3 or 4 MIs with firt one at age 68yrs. She has coronary stents. Brother(s) Family Medical History: Cancer Additional Family Medical History / Comment(s): Brother was a smoker. He of lung cancer. General Exam Limitations: no limitations General appearance: alert, in no apparent distress Head exam: Present: atraumatic, normocephalic, normal inspection Eye exam: Present: normal appearance, PERRL, EOMI Pupils: Present: normal accommodation ENT exam: Present: normal exam, normal oropharynx, mucous membranes moist, TM's normal bilaterally, normal external ear exam Neck exam: Present: normal inspection, full ROM. Absent: tenderness, meningismus Respiratory exam: Present: normal lung sounds bilaterally. Absent: respiratory distress, wheezes, rales, rhonchi, stridor, decreased breath sounds Cardiovascular Exam: Present: regular rate, normal rhythm, normal heart sounds. Absent: systolic murmur, diastolic murmur GI/Abdominal exam: Present: soft. Absent: distended, tenderness, guarding, rebound Extremities exam: Present: normal inspection, full ROM, normal capillary refill. Absent: tenderness, pedal edema, joint swelling Back exam: Present: normal inspection, full ROM. Absent: tenderness, CVA tenderness (R), CVA tenderness (L) Neurological exam: Present: alert, oriented X3 Psychiatric exam: Present: normal affect, normal mood Skin exam: Present: warm, dry, intact, normal color Course Vital Signs 09/28/20 09/28/20 09/28/20 18:36 19:39 20:40 Temperature 99.2 F 99.4 F Pulse Rate 96 81 75 Respiratory 21 18 18 Rate Blood Pressure 173/96 197/94 166/98 O2 Sat by Pulse 98 99 Oximetry Medical Decision Making - Medical Decision Making 70-year-old female with history of hypertension and hyperlipidemia presenting to emergency Department with a chief complaint of shortness of breath. On Physical examination, patient does not appear to be in any respiratory distress. She is clear to auscultation. CBC shows mild leukopenia which is expected with covert. She did test positive for coronavirus. CMP is unremarkable. Inflammatory markers are within normal limits. Coags within normal limits and a negative d- dimer. Patient does not have any chest pain. Her oxygen saturation levels are 99% on room air. Chest x-ray revealed no signs of pneumonia but there is some mild bilateral interstitial edema. Patient advised to take Tylenol if she develops fever. Patient advised to quarantine for the next 10 days from the day of onset of symptoms. She was advised to return to emergency department if symptoms worsen. Advised to drink plenty of fluids. Patient feels comfortable going home. 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 Case discussed with physician. - Lab Data Result diagrams: 09/28/20 19:39 09/28/20 19:39 Lab Results 09/28/20 09/28/20 09/28/20 Range/Units 19:39 19:39 19:39 WBC 2.8 L (3.8-10.6) k/uL RBC 4.72 (3.80-5.40) m/uL Hgb 13.0 (11.4-16.0) gm/dL Hct 39.5 (34.0-46.0) % MCV 83.7 (80.0-100.0) fL MCH 27.4 (25.0-35.0) pg MCHC 32.8 (31.0-37.0) g/dL RDW 14.5 (11.5-15.5) % Plt Count 201 (150-450) k/uL MPV 7.3 Neutrophils % 44 % Lymphocytes % 43 % Monocytes % 8 % Eosinophils % 2 % Basophils % 0 % Neutrophils # 1.2 L (1.3-7.7) k/uL Lymphocytes # 1.2 (1.0-4.8) k/uL Monocytes # 0.2 (0-1.0) k/uL Eosinophils # 0.1 (0-0.7) k/uL Basophils # 0.0 (0-0.2) k/uL PT 9.4 (9.0-12.0) sec INR 0.9 (<1.2) APTT 27.8 (22.0-30.0) sec D-Dimer 0.36 (<0.60) mg/L FEU Sodium 138 (137-145) mmol/L Potassium 4.3 (3.5-5.1) mmol/L Chloride 106 (98-107) mmol/L Carbon Dioxide 23 (22-30) mmol/L Anion Gap 9 mmol/L BUN 18 H (7-17) mg/dL Creatinine 0.68 (0.52-1.04) mg/dL Est GFR (CKD-EPI)AfAm >90 (>60 ml/min/1.73 sqM) Est GFR (CKD-EPI)NonAf >90 (>60 ml/min/1.73 sqM) Glucose 118 H (74-99) mg/dL Plasma Lactic Acid Cong (0.7-2.0) mmol/L Calcium 9.2 (8.4-10.2) mg/dL Magnesium 1.8 (1.6-2.3) mg/dL Total Bilirubin 0.3 (0.2-1.3) mg/dL AST 32 (14-36) U/L ALT 23 (4-34) U/L Alkaline Phosphatase 91 (38-126) U/L Lactate Dehydrogenase 458 (313-618) U/L C-Reactive Protein <5.0 (<10.0) mg/L Total Protein 7.7 (6.3-8.2) g/dL Albumin 4.4 (3.5-5.0) g/dL Coronavirus (PCR) (Not Detectd) 09/28/20 09/28/20 Range/Units 19:39 19:39 WBC (3.8-10.6) k/uL RBC (3.80-5.40) m/uL Hgb (11.4-16.0) gm/dL Hct (34.0-46.0) % MCV (80.0-100.0) fL MCH (25.0-35.0) pg MCHC (31.0-37.0) g/dL RDW (11.5-15.5) % Plt Count (150-450) k/uL MPV Neutrophils % % Lymphocytes % % Monocytes % % Eosinophils % % Basophils % % Neutrophils # (1.3-7.7) k/uL Lymphocytes # (1.0-4.8) k/uL Monocytes # (0-1.0) k/uL Eosinophils # (0-0.7) k/uL Basophils # (0-0.2) k/uL PT (9.0-12.0) sec INR (<1.2) APTT (22.0-30.0) sec D-Dimer (<0.60) mg/L FEU Sodium (137-145) mmol/L Potassium (3.5-5.1) mmol/L Chloride (98-107) mmol/L Carbon Dioxide (22-30) mmol/L Anion Gap mmol/L BUN (7-17) mg/dL Creatinine (0.52-1.04) mg/dL Est GFR (CKD-EPI)AfAm (>60 ml/min/1.73 sqM) Est GFR (CKD-EPI)NonAf (>60 ml/min/1.73 sqM) Glucose (74-99) mg/dL Plasma Lactic Acid Cong 1.3 (0.7-2.0) mmol/L Calcium (8.4-10.2) mg/dL Magnesium (1.6-2.3) mg/dL Total Bilirubin (0.2-1.3) mg/dL AST (14-36) U/L ALT (4-34) U/L Alkaline Phosphatase (38-126) U/L Lactate Dehydrogenase (313-618) U/L C-Reactive Protein (<10.0) mg/L Total Protein (6.3-8.2) g/dL Albumin (3.5-5.0) g/dL Coronavirus (PCR) Detected A (Not Detectd) - EKG Data EKG Comments: Sinus rhythm Ventricular rate 79, WV 150, QRS 80, QTC 428. Disposition Clinical Impression: COVID-19 Disposition: HOME SELF-CARE Condition: Stable Instructions (If sedation given, give patient instructions): Acute Bronchitis (ED) Additional Instructions: Take Tylenol if you develop a fever. Return to emergency department if symptoms worsen. Quarantine for the next 10 days from the day of onset of symptoms. Drink plenty of fluids. Is patient prescribed a controlled substance at d/c from ED?: No Referrals: Preet Graham MD [Primary Care Provider] - 1-2 days Time of Disposition: 21:23
[2020-09-28 19:43] VITALS: RESP 18
[2020-09-28 19:55] LABS: Basophils % (A) 0 %; Eosinophils # (A) 0.1 k/uL (0-0.7); Eosinophils % (A) 2 %; HCT 39.5 % (34.0-46.0); Lymphocytes # (A) 1.2 k/uL (1.0-4.8); Lymphocytes % (A) 43 %; MCH 27.4 pg (25.0-35.0); MCHC 32.8 g/dL (31.0-37.0); MCV 83.7 fL (80.0-100.0); Mean Platelet Volume 7.3; Monocytes # (A) 0.2 k/uL (0-1.0); Monocytes % (A) 8 %; Neutrophils # (A) 1.2 k/uL (1.3-7.7); Neutrophils % (A) 44 %; Platelet Count 201 k/uL (150-450); RBC 4.72 m/uL (3.80-5.40); RDW 14.5 % (11.5-15.5); WBC 2.8 k/uL (3.8-10.6)
[2020-09-28 20:10] LABS: ALT 23 U/L (4-34); AST 32 U/L (14-36); African American GFR (CKD) >90 (>60 ml/min/1.73 sqM); Albumin 4.4 g/dL (3.5-5.0); Alkaline Phosphatase 91 U/L (38-126); Anion Gap 9 mmol/L; Blood Urea Nitrogen 18 mg/dL (7-17); C Reactive Protein <5.0 mg/L (<10.0); Calcium 9.2 mg/dL (8.4-10.2); Carbon Dioxide 23 mmol/L (22-30); Chloride 106 mmol/L (98-107); Glucose 118 mg/dL (74-99); LDH 458 U/L (313-618); Magnesium 1.8 mg/dL (1.6-2.3); Non-African American GFR(CKD) >90 (>60 ml/min/1.73 sqM); Potassium 4.3 mmol/L (3.5-5.1); Sodium 138 mmol/L (137-145); Total Bilirubin 0.3 mg/dL (0.2-1.3); Total Protein 7.7 g/dL (6.3-8.2)
[2020-09-28 20:41] VITALS: TEMP 99.4
[2020-09-28 20:55] LABS: INR 0.9 (<1.2); Partial Thromboplastin Time 27.8 sec (22.0-30.0); Prothrombin Time 9.4 sec (9.0-12.0)
--- NOTE | 2020-09-28 21:07 | XR ---
EXAMINATION TYPE: XR chest 1V portable DATE OF EXAM: 09/28/2020 COMPARISON: Chest x-ray June 07, 2020 HISTORY: Shortness of breath, suspected cold 19 pneumonia. TECHNIQUE: Single frontal view of the chest is obtained. FINDINGS: There is mild interstitial edema back on chronic parenchymal change. No new suspicious foc al air space opacity, pleural effusion, or pneumothorax seen bilaterally. The cardiac silhouette siz e is stable and upper limits of normal. Spinal stimulator lower thoracic spinal canal demonstrated. IMPRESSION: New Mild bilateral interstitial edema, no new focal infiltrate.
[2020-09-28 21:29] VITALS: BP 174/85; PULSE 72
[2020-09-28 23:12] LABS: Ferritin 20.8 ng/mL (10.0-291.0)
== END 2020-09-28 21:31 | disposition home or self-care (01) ==
LOC: EC 18:30
DX: U07.1 COVID-19 (principal); I10 Essential (primary) hypertension; E78.5 Hyperlipidemia, unspecified; D72.819 Decreased white blood cell count, unspecified; M79.7 Fibromyalgia; K21.9 Gastro-esophageal reflux disease without esophagitis; G89.29 Other chronic pain; M54.5 Low back pain; E03.9 Hypothyroidism, unspecified; M19.90 Unspecified osteoarthritis, unspecified site; E07.9 Disorder of thyroid, unspecified; K58.9 Irritable bowel syndrome, unspecified; Z79.890 Hormone replacement therapy; Z79.82 Long term (current) use of aspirin; Z79.899 Other long term (current) drug therapy; Z88.0 Allergy status to penicillin; Z88.8 Allergy status to other drugs, medicaments and biological substances; Z87.19 Personal history of other diseases of the digestive system
CPT/HCPCS: 36415; 71045; 80053; 82728; 83605; 83615; 83735; 84145; 85025; 85379; 85610; 85730; 86140; 87040; 87635; 93005; 99285